=== PATIENT | female | born 1955 | race Caucasian/White ===

== ENCOUNTER 2016-12-06 10:00 | Inpatient (IN) | payer BC ==
--- NOTE | 2016-11-30 14:26 | HP ---
HISTORY AND PHYSICAL: DATE OF ADMISSION/SURGERY: 12/06/16 DATE OF OFFICE VISIT: 11/30/16 SURGEON: Latoya Hein MD. PROCEDURE: Left total knee arthroplasty. CHIEF COMPLAINT: Left knee pain. HISTORY OF PRESENT ILLNESS: Ms. Moss is a 61-year-old female with complaints of left knee pain s econdary to advanced osteoarthritis. She has failed conservative management and has elected to proc eed with a left total knee arthroplasty, which is scheduled for 12/06/[address] Hein. PAST MEDICAL HISTORY: Diabetes, hypertension, TIA. PAST SURGICAL HISTORY: Bariatric surgery, cholecystectomy, left ankle ORIF, hysterectomy, right kne e arthroscopy, anterior cervical diskectomy. CURRENT MEDICATIONS: 1. Lisinopril. 2. Humulin. 3. Paroxetine. 4. HCl 40 mg. 5. [place] vitamins. 6. Vitamin B12. 7. Vitamin D3. ALLERGIES: TETRACYCLINE, HYDROCODONE and POLYSPORIN. HYDROCODONE causes nausea. TETRACYCLINE cause s a rash. FAMILY HISTORY: Heart disease and colon cancer. SOCIAL HISTORY: She is a 61-year-old female. She lives with her mother. She does not smoke or use drugs. She uses an occasional alcohol. She is retired. REVIEW OF SYSTEMS: A complete 14-point review of systems was reviewed with the patient and is posit nadja for diabetes, history of a TIA, and anesthesia causing nausea. She denies history of DVT, bleed ing disorder, hepatitis C, HIV, and MRSA. PHYSICAL EXAMINATION GENERAL: She is well developed, well nourished, in no acute distress. VITAL SIGNS: She stands 5 feet 4 inches tall, weighs 200 pounds. Her blood pressure is 166/80 with a heart rate of 61. HEENT: Normocephalic, atraumatic. NECK: Supple. No palpable lymph nodes. Trachea is midline. PULMONARY: Lungs are clear to auscultation bilaterally. CARDIO: Regular rate and rhythm. ABDOMEN: Soft, nontender, nondistended. NEUROLOGICAL: She is alert and oriented x3. Cranial nerves II through XII are intact. MUSCULOSKELETAL: Left lower extremity skin is intact. She has moderate joint effusion in the left knee, tenderness over the medial and lateral joint line. She walks with a slightly antalgic-type ga it, favoring her left leg. Her lower extremity muscle group strengths are intact at 5/5. She has 2 + dorsalis pedis pulses and intact sensation. ASSESSMENT AND PLAN: Ms. Moss is a 61-year-old female with complaints of left knee pain seconda ry to advanced osteoarthritis. She has failed conservative management and has elected to proceed wi th a left total knee arthroplasty, which is scheduled for 12/06/[address] Hein discus sed the risks and benefits of the surgery at today's visit and all of her questions were answered. Coumadin, Percocet, and Colace were sent to her pharmacy today for postoperative pain control and DV T prophylaxis. She will see Dr. Hein back 14 days after the surgery. JAZIEL STREETER [id number]/[facility] #: [id number]
[~2016-12-06 10:00] MED LIST: Buffered Lidocaine 1% SYR 3ML* 3 ML/SYR SYRINGE INTRADERM ONE; Dexamethasone IV* 4 MG/ML 1 ML (4 MG) IV SLOW PU ONE; Famotidine IV* 10 MG/ML 2 ML (20 mg) IV ONE
[2016-12-06] MEDS ORDERED: Dexamethasone IV* 4 MG/ML 1 ML (4 MG) ONE (11:24)
[2016-12-06] MEDS ORDERED: ceFAZolin 2 GM PREMIX(*) 2 GM/50 ML BAG IVPB ONE (11:24)
[2016-12-06] MEDS ORDERED: Famotidine IV* 10 MG/ML 2 ML (20 mg) ONE (11:24)
[2016-12-06] MEDS ORDERED: Midazolam* 1 MG/ML 5 ML VIAL (5 MG) ONE ×2 (12:42→14:13)
[2016-12-06] MEDS ORDERED: KETAMINE HCL* 50 MG/ML 10 ML VIAL ONE (12:42)
[2016-12-06] MEDS ORDERED: Propofol* 10 MG/ML 20 ML BTL IV PUSH ONE (12:43)
[2016-12-06] MEDS ORDERED: Bupivacaine 0.5% SDV PF* 30 ML VIAL ONE (12:43)
[2016-12-06] MEDS ORDERED: Ondansetron INJ* 2 MG/ML VIAL ONE (12:43)
[2016-12-06] MEDS ORDERED: Morphine PF AMP (0.5MG/ML)* 5 MG/10 ML AMP ONE (13:38)
[2016-12-06] MEDS ORDERED: Ondansetron INJ* 2 MG/ML VIAL IV PRN (14:50)
[2016-12-06] MEDS ORDERED: oxyCODONE/Acetamin 5/325 MG* TAB PO PRN ×2 (14:50)
[2016-12-06] MEDS ORDERED: DiMENhydriNATE IV* 50 MG/ML VIAL IV PUSH PRN (14:50)
[2016-12-06] MEDS ORDERED: Nalbuphine* 20 MG/ML 1 ML VIAL IV PRN ×2 (14:50)
[2016-12-06] MEDS ORDERED: Lactated Ringers 500 ml BAG* 500 ML IV PRN (14:50)
[2016-12-06] MEDS ORDERED: Naloxone* 0.4 MG/ML 1 ML VIAL IV PRN (14:50)
[2016-12-06] MEDS ORDERED: fentaNYL* 50 MCG/ML 2 ML VIAL (100 MCG VIAL) IV PRN (14:50)
[2016-12-06] MEDS ORDERED: Ropivacaine* 300 MG in NS 0.9% 250 ML* 240 ML EPIDURAL SCH (15:00)
[2016-12-06] MEDS ORDERED: Scopolamine 1.5 mg* PATCH TRANSDERM SCH (15:00)
[2016-12-06] MEDS ORDERED: Bisacodyl SUPP* 10 MG SUPP PR PRN (16:10)
[2016-12-06] MEDS ORDERED: Polyethylene Glycol 3350* 17 GM PACKET PO PRN (16:17)
[2016-12-06] MEDS ORDERED: ALBUTEROL SULFATE INH PRN (16:22)
[2016-12-06] MEDS ORDERED: [UNRECOGNIZED DRUG - OTHER] INH PRN (16:22)
[2016-12-06] MEDS ORDERED: FLUTICASONE FUROATE VILANTEROL INH PRN (16:22)
[2016-12-06] MEDS ORDERED: Zolpidem TAB* 10 MG PO PRN (16:25)
[2016-12-06] MEDS ORDERED: Warfarin TAB(*) 6 MG PO ONE (17:00)
[2016-12-06] MEDS ORDERED: Nalbuphine* 20 MG/ML 1 ML VIAL ONE (17:41)
[2016-12-06] MEDS ORDERED: Dextrose 50% Syringe 50 ML* 25 GM/50 ML SYRINGE IV PUSH PRN (17:52)
[2016-12-06] MEDS ORDERED: diPHENhydraMINE IV* 50 MG/ML 1 ml VIAL (BENADRYL) ONE (18:00)
[2016-12-06] MEDS ORDERED: INSULIN NPH SUBCUT SCH (18:00)
[2016-12-06] MEDS ORDERED: [UNRECOGNIZED DRUG - OTHER] SUBCUT SCH (18:00)
[2016-12-06] MEDS: diPHENhydraMINE IV* 50 MG/ML 1 ml VIAL (BENADRYL) IV PRN (18:01)
--- NOTE | 2016-12-06 18:36 | RAD ---
Indication: Post op LEFT total knee replacement. Comparison: November 05, 2016 Technique: Portable AP and cross table lateral views LEFT knee. Report: Status post total knee replacement. Anterior surgical drain in place. Post-op fluid and gas is seen in the joint space and anterior subcutaneous tissues. Alignment is anatomic. No periprosthetic fracture evident. IMPRESSION: Unremarkable immediate postop appearance following LEFT total knee replacement.
[2016-12-06] MEDS: Docusate CAP* 100 MG PO SCH (21:19)
--- NOTE | 2016-12-06 21:45 | CONS ---
CONSULTATION REPORT: DATE OF CONSULT: 12/06/16 PRIMARY CARE PROVIDER: Dr. Abdoul Lynn. ATTENDING PHYSICIAN: Dr. Abiel Peter (dictated by Nisa Mcdermott NP). PHYSICIAN REQUESTING CONSULT: Dr. Latoya Hein. REASON FOR CONSULT: Co-medical management in a patient with history of diabetes mellitus and hypertension. HISTORY OF PRESENT ILLNESS: Ms. Moss is a 61-year-old female with past medical history significant for diabetes mellitus, hypertension, TIA, hyperlipidemia, migraines, small patent foramen ovale, and osteoarthritis, who presented to the hospital for an elective left total knee arthroplasty with Dr. Latoya Hein today. Postoperatively, the patient is doing well. Her pain is controlled. She is reporting some itching from her Duramorph spinal. The patient states that leading up to her surgery, she has been in a good state of health with the exception of left knee discomfort. She denies any recent fever , chills, chest pain, shortness of breath, or edema. The hospitalists were asked to assist with the management of this patient during her postoperative period. PAST MEDICAL HISTORY: 1. Diabetes mellitus. 2. Hypertension. 3. Transient ischemic attack. 4. Migraines. 5. Asthma. 6. Panic disorder. 7. Small patent foramen ovale. 8. Osteoarthritis. PAST SURGICAL HISTORY: 1. Status post gastric bypass surgery in March 2016. 2. Cholecystectomy. 3. Status post left ankle ORIF. 4. Status post hysterectomy in 2005. 5. Status post right knee arthroscopy. 6. Status post anterior cervical diskectomy. HOME MEDICATIONS: Include: 1. Lisinopril/hydrochlorothiazide 20/12.5 mg daily. 2. NPH 20 to 30 units sliding scale subcutaneous every evening. 3. Paroxetine 40 mg oral every morning. 4. [place] multivitamins 2 tablets oral daily. 5. Vitamin B12 500 mcg oral daily. 6. Vitamin D3 2000 units by mouth oral daily. ALLERGIES: TETRACYCLINE causes a rash, HYDROCODONE causes nausea, and POLYSPORIN. FAMILY HISTORY: The patient's maternal grandmother had a history of myocardial infarction, the patient's mother has a history of diabetes mellitus. The patient's brother has a history of colon cancer, a paternal aunt with breast cancer, paternal grandmother with ovarian cancer, and a paternal grandfather with bone cancer. SOCIAL HISTORY: The patient denies tobacco, alcohol, or recreational drug use. She is retired and lives with her mother. The patient's daughter, Robina Culp, would be her surrogate decision maker in the event that she is unable to make decisions for herself. REVIEW OF SYSTEMS: I performed a 14-point review of systems. All the pertinent positive and negatives are mentioned in the history of present illness. The remaining review of systems is negative. PHYSICAL EXAM: Vital Signs: Temperature 97.2, heart rate 68, respiratory rate 15, O2 sat 92% on room air, blood pressure 122/84. Appearance: The patient was alert, pleasant, to be in no acute distress. HEENT: Normocephalic, atraumatic. Pupils are equal and round. Extraocular movements are intact. Neck: Supple. Cardiovascular: Regular rate and rhythm. S1 and S2 crisp. There are no murmurs, rubs, or gallops heard. Extremities: There is no lower extremity edema. DP and PT pulses are 2+ and symmetric. Respiratory: There is no accessory muscle use and the lungs are clear to auscultation bilateral. Abdomen: Soft, nontender, nondistended. There are bowel sounds present x4. Musculoskeletal: There is no clubbing or cyanosis noted. The patient exhibits equal strength in all extremities. Skin: There is dressing on the patient's left knee that is clean, dry, and intact. Neurological: Cranial nerves II through XII are grossly intact. Psychological: The patient is calm and cooperative. DIAGNOSTIC STUDIES/LAB DATA: Preoperative laboratory data from 11/30/16. Sodium 137, potassium 3.7, chloride 102, CO2 28, BUN 21, creatinine 0.76, glucose 204. White blood cell count 7.9, hemoglobin 12.2, hematocrit 37, and platelet count 244. IMPRESSION: Ms. Moss is a 61-year-old female with past medical history significant for diabetes mellitus, hypertension, history of transient ischemic attack, hyperlipidemia, who underwent an elective left total knee arthroplasty today with Dr. Hein. Hospitalists were asked to assist with co-management of this patient during her hospitalization. PLAN: 1. Status post left total knee arthroplasty. Postoperative day. Management per Orthopedic Surgery. The patient had a Duramorph spinal and will be started on pain regimen in the morning. The patient's hemoglobin and hematocrit will be trended. She will have physical therapy and occupational therapy. Her urinary catheter will be removed on postop day 1. 2. Diabetes mellitus. We will hold the patient's NPH while she is in the hospital. She will have fingersticks a.c. and h.s. She will be on a lispro sliding scale. The patient's hemoglobin A1c was 7.5 on 11/30/16. 3. Hypertension. For now, in the postoperative period, we are going to hold the patient's lisinopril and hydrochlorothiazide. I will consider restarting these in the morning depending on what her blood pressures are. Her blood pressure goal should be less than 140/90. The patient should be seen and followed up by her primary care provider in approximately 6 weeks. 4. Panic disorder. The patient will be continued on her home paroxetine. 5. Fluids, electrolytes, and nutrition. The patient will be on a consistent carbohydrate diet. 6. DVT prophylaxis. The patient will be on Lovenox bridge to warfarin per Orthopedic Surgery. 7. Code status. Full code. 8. Disposition. Inpatient. Disposition per Orthopedic Surgery. TIME SPENT: The time for this consultation was 60 minutes, 30 minutes was spent [id number] with the patient discussing medications, past medical history , and the events leading up to her arrival today. The patient has been reviewed with the attending, Dr. Peter, who agrees with the plan of care. NISA MCDERMOTT NP CC: Dr. Hein; Dr. Abdoul Lynn* [id number]/[facility] #: [id number] MTDD
[2016-12-06] MEDS: Magnesium Hydroxide LIQ* 30 ML UDC PO SCH (22:19)
[2016-12-06] MEDS: ceFAZolin 1 GM in Dextrose (*) 1 GM/50 ML BAG IVPB SCH (22:24)
[2016-12-06] MEDS ORDERED: HYDROmorphone PCA* 20 MG/20 ML PCA.SYRING PCA SCH (23:45)
[2016-12-07] MEDS ORDERED: Insulin LISPRO* 1 UNITS UNIT SUBCUT ONE ×2 (01:00→23:00)
[2016-12-07] MEDS ORDERED: diPHENhydraMINE PO* 25 MG PO PRN (06:00)
[2016-12-07] MEDS ORDERED: Ondansetron TAB* 4 MG PO PRN (06:00)
[2016-12-07] MEDS ORDERED: Ondansetron INJ* 2 MG/ML VIAL IV PRN (06:00)
[2016-12-07] MEDS: ceFAZolin 1 GM in Dextrose (*) 1 GM/50 ML BAG IVPB SCH ×2 (06:21→14:28)
[2016-12-07 06:32] LABS: Hematocrit 30 % (35-47)
[2016-12-07 06:57] LABS: BUN/Creatinine Ratio 18.7 (8-20); Calcium 8.4 mg/dL (8.6-10.3); EGFR African American 45.7 (>60); EGFR Non-African American 35.5 (>60); Potassium 4.3 mmol/L (3.5-5.0)
[2016-12-07] MEDS: Magnesium Hydroxide LIQ* 30 ML UDC PO SCH ×2 (07:54→20:12)
[2016-12-07] MEDS: Cyanocobalamin TAB* 500 MCG PO SCH (07:54)
[2016-12-07] MEDS: PARoxetine HCL TAB* 40 MG PO SCH (07:54)
[2016-12-07] MEDS: Docusate CAP* 100 MG PO SCH ×2 (07:54→20:12)
[2016-12-07] MEDS: diPHENhydraMINE IV* 50 MG/ML 1 ml VIAL (BENADRYL) IV PRN (07:54)
[2016-12-07] MEDS: oxyCODONE TAB* 5 MG TAB PO PRN ×2 (07:57→11:35)
[2016-12-07] MEDS: Acetaminophen TAB* 325 MG PO PRN ×3 (07:57→23:19)
--- NOTE | 2016-12-07 08:36 | PN ---
Progress Note - Progress Note SOAP: Subjective: 61 y/o female s/p L TKA 12/06/[address] Hein. Patient feeling well, eager for D/C. + itching overnight. VSS afebrile. Objective: General- Well appearing, NAD, sitting in bed comfortably MSK- Surgical dressing intact, no drainage noted. Moderate swelling LLE, non- pitting, PT 2+ b/l, + DF/PF. Laboratory Results - last 24 hr 12/06/16 12/06/16 12/06/16 11:36 16:55 22:29 Hgb Hct INR (Anticoag Therapy) Sodium Potassium Chloride Carbon Dioxide Anion Gap BUN Creatinine Est GFR ( Amer) Est GFR (Non-Af Amer) BUN/Creatinine Ratio Glucose POC Glucose (mg/dL) 158 H 226 H 346 H Calcium 12/07/16 12/07/16 12/07/16 06:02 06:02 06:02 Hgb 10.0 L Hct 30 L INR (Anticoag Therapy) 1.03 Sodium 134 Potassium 4.3 Chloride 102 Carbon Dioxide 27 Anion Gap 5 BUN 28 H Creatinine 1.50 H Est GFR ( Amer) 45.7 Est GFR (Non-Af Amer) 35.5 BUN/Creatinine Ratio 18.7 Glucose 192 H POC Glucose (mg/dL) Calcium 8.4 L 12/07/16 08:05 Hgb Hct INR (Anticoag Therapy) Sodium Potassium Chloride Carbon Dioxide Anion Gap BUN Creatinine Est GFR ( Amer) Est GFR (Non-Af Amer) BUN/Creatinine Ratio Glucose POC Glucose (mg/dL) 264 H Calcium Vital Signs Temp 98.2 F 12/07/16 07:38 Pulse 82 12/07/16 07:38 Resp 16 12/07/16 07:57 BP 96/49 12/07/16 07:38 Pulse Ox 100 12/07/16 07:38 Intake & Output 12/06/16 12/07/16 12/07/16 18:59 06:59 18:59 Intake Total 1850 2587 Output Total 1000 200 Balance 850 2387 Weight 202 lb Intake: IV Fluids 1850 1257 LR 1257 NS 50ML, Cefazolin 2G 50 lr 1800 IVPB 30 LR 30 Oral 1300 Output: Law 750 200 Estimated Blood Loss 250 Other: # Bowel Movements 0 Assessment: 61 y/o female s/p L TKA 12/06/[address] Hein Plan: - Lovenox and coumadin for DVT propylaxis, 8mg tonight - PT OT - Continue current pain regimen- monitor pruritis Active Medications Generic Name Dose Route Start Last Admin Trade Name Freq PRN Reason Stop Dose Admin Acetaminophen 650 mg 12/07/16 06:00 12/07/16 07:57 Tylenol Tab* PO 650 mg Q4H PRN Administration mild pain or fever Bisacodyl 10 mg 12/06/16 16:10 Dulcolax Supp* AR DAILY PRN constipation Cyanocobalamin 500 mcg 12/07/16 09:00 12/07/16 07:54 Vitamin B12 Tab* PO 500 mcg DAILY TANYA Administration Dextrose 12.5 gm 12/06/16 17:52 D50w Syringe 50 Ml* IV PUSH .FOR FS < 60 - SS PRN FS < 60 Dimenhydrinate 25 mg 12/06/16 14:50 Dramamine Iv* IV PUSH ONCE PRN NAUSEA/VOMITING Diphenhydramine HCl 12.5 mg 12/06/16 16:10 12/07/16 07:54 Benadryl Iv* IV 12.5 mg Q6H PRN Administration PRURITIS Diphenhydramine HCl 25 mg 12/07/16 06:00 Benadryl Po* PO Q6H PRN INSOMNIA Docusate Sodium 100 mg 12/06/16 21:00 12/07/16 07:54 Colace Cap* PO 100 mg BID TANYA Administration Enoxaparin Sodium 30 mg 12/07/16 17:00 Lovenox(*) SUBCUT Q24H TANYA Ropivacaine 300 mg/ Sodium 300 mls @ 0 mls/hr 12/06/16 15:00 12/06/16 19:27 Chloride EPIDURAL Not Given Q24H TANYA Protocol Per Protocol Lactated Ringer's 500 mls @ 2,000 mls/hr 12/06/16 14:50 Lactated Ringers 500 Ml Bag* IV ONCE PRN FOR SBP < 90 Cefazolin Sodium/Dextrose 1 gm in 50 mls @ 200 mls/hr 12/06/16 22:00 06:21 Kefzol 1 Gm In Dextrose Duplex (*) IVPB 12/07/16 14:14 200 mls/hr Q8H TANYA Administration Lactated Ringer's 1,000 mls @ 125 mls/hr 12/06/16 17:00 12/06/16 19:37 Lactated Ringers 1000 Ml Bag* IV 100 mls/hr PER RATE TANYA Administration Hydromorphone HCl 20 mg in 20 mls @ 0 mls/hr 12/06/16 23:45 Dilaudid Dry Starch Operator* GLAZE MIXER 12/07/16 23:44 .change Q24H [facility] Protocol Per Protocol Insulin Human Lispro 0 - 10 units 12/07/16 07:30 Humalog* SUBCUT AC [facility] Protocol Lactulose 30 ml 12/06/16 16:10 Lactulose* PO Q6H PRN constipation Magnesium Hydroxide 30 ml 12/06/16 21:00 12/07/16 07:54 Milk Of Magnesia Liq* PO 30 ml BID [facility] Administration Morphine Sulfate 5 mg 12/07/16 06:00 Morphine Inj (Syringe)* IV Q2H PRN SEVERE PAIN Ondansetron HCl 4 mg 12/07/16 06:00 Zofran Inj* IV Q6H PRN nausea Ondansetron HCl 4 mg 12/07/16 06:00 Zofran Tab* PO Q6H PRN NAUSEA Oxycodone HCl 10 mg 12/07/16 06:00 12/07/16 07:57 Roxycodone Tab* PO 10 mg Q4H PRN Administration breaktrough pain Oxycodone/Acetaminophen 1 tab 12/07/16 06:00 Percocet 5/325 Tab* PO Q3H PRN PAIN - MODERATE Paroxetine HCl 40 mg 12/07/16 09:00 12/07/16 07:54 Paxil Tab* PO 40 mg QAM TANYA Administration Pharmacy Profile Note 1 note 12/09/16 14:54 Scopolomine Patch Remove* PATCH OFF 12/09/16 14:55 .AFTER 72 HOURS ONE Pharmacy Profile Note 1 note 12/07/16 17:00 Coumadin Daily Reminder* FOLLOW UP 1700 [facility] Polyethylene Glycol/Electrolytes 17 gm 12/06/16 16:17 Miralax* PO DAILY PRN Constipation Scopolamine 1 patch 12/06/16 15:00 12/06/16 19:28 Transderm-Scop 1.5 Mg Patch* TRANSDERM Not Given Q72H [facility] Warfarin Sodium 8 mg 12/07/16 17:00 Coumadin Tab(*) PO 12/07/16 17:01 ONCE@1700 ONE Protocol Zolpidem Tartrate 10 mg 12/06/16 16:25 Ambien Tab* PO BEDTIME PRN INSOMNIA
[2016-12-07] MEDS: Insulin LISPRO* 1 UNITS UNIT SUBCUT SCH ×3 (08:58→17:14)
[2016-12-07] MEDS ORDERED: Lisinopril TAB* 10 MG PO SCH (09:00)
--- NOTE | 2016-12-07 10:43 | PN ---
Subjective Date of Service: 12/07/16 Interval History: Patient seen and examined at bedside. Pt states that she is feeling well today with the exception of itching. Denies fever, chills, shortness of breath, chest discomfort, N/V/D. Pt has been up with physical therapy. Family History: Unchanged from Admission Social History: Unchanged from Admission Past Medical History: Unchanged from Admission Objective Active Medications: Acetaminophen (Tylenol Tab*) 650 mg PO Q4H PRN Reason: mild pain or fever Bisacodyl (Dulcolax Supp*) 10 mg HI DAILY PRN Reason: constipation Cyanocobalamin (Vitamin B12 Tab*) 500 mcg PO DAILY TANYA Dextrose (D50w Syringe 50 Ml*) 12.5 gm IV PUSH .FOR FS < 60 - SS PRN Reason: FS < 60 Dimenhydrinate (Dramamine Iv*) 25 mg IV PUSH ONCE PRN Reason: NAUSEA/VOMITING Diphenhydramine HCl (Benadryl Iv*) 12.5 mg IV Q6H PRN Reason: PRURITIS Diphenhydramine HCl (Benadryl Po*) 25 mg PO Q6H PRN Reason: INSOMNIA Docusate Sodium (Colace Cap*) 100 mg PO BID TANYA Enoxaparin Sodium (Lovenox(*)) 30 mg SUBCUT Q24H TANYA Ropivacaine 300 mg/ Sodium (Chloride) 300 mls @ 0 mls/hr EPIDURAL Q24H TANYA; Per Protocol Reason: Protocol Lactated Ringer's (Lactated Ringers 500 Ml Bag*) 500 mls @ 2,000 mls/hr IV ONCE PRN Reason: FOR SBP < 90 Cefazolin Sodium/Dextrose (Kefzol 1 Gm In Dextrose Duplex (*)) 1 gm in 50 mls @ 200 mls/hr IVPB Q8H TANYA Stop: 12/07/16 14:14 Lactated Ringer's (Lactated Ringers 1000 Ml Bag*) 1,000 mls @ 125 mls/hr IV PER RATE TANYA Hydromorphone HCl (Dilaudid Beverage Inspection Machine Tender*) 20 mg in 20 mls @ 0 mls/hr [employer] SEALER .change Q24H TANYA; Per Protocol Stop: 12/07/16 23:44 Insulin Human Lispro (Humalog*) 0 - 10 units SUBCUT AC TANYA Reason: Protocol Lactulose (Lactulose*) 30 ml PO Q6H PRN Reason: constipation Magnesium Hydroxide (Milk Of Magnesia Liq*) 30 ml PO BID [facility] Morphine Sulfate (Morphine Inj (Syringe)*) 5 mg IV Q2H PRN Reason: SEVERE PAIN Ondansetron HCl (Zofran Inj*) 4 mg IV Q6H PRN Reason: nausea Ondansetron HCl (Zofran Tab*) 4 mg PO Q6H PRN Reason: NAUSEA Oxycodone HCl (Roxycodone Tab*) 10 mg PO Q4H PRN Reason: breaktrough pain Oxycodone/Acetaminophen (Percocet 5/325 Tab*) 1 tab PO Q3H PRN Reason: PAIN - MODERATE Paroxetine HCl (Paxil Tab*) 40 mg PO QAM [facility] Pharmacy Profile Note (Scopolomine Patch Remove*) 1 note PATCH OFF .AFTER 72 HOURS ONE Stop: 12/09/16 14:55 Pharmacy Profile Note (Coumadin Daily Reminder*) 1 note FOLLOW UP 1700 [facility] Polyethylene Glycol/Electrolytes (Miralax*) 17 gm PO DAILY PRN Reason: Constipation Scopolamine (Transderm-Scop 1.5 Mg Patch*) 1 patch TRANSDERM Q72H [facility] Warfarin Sodium (Coumadin Tab(*)) 8 mg PO ONCE@1700 ONE Stop: 12/07/16 17:01 Zolpidem Tartrate (Ambien Tab*) 10 mg PO BEDTIME PRN Reason: INSOMNIA Vital Signs 12/06/16 12/06/16 12/06/16 11:31 16:30 16:35 Temperature 98.6 F 96.6 F Pulse Rate 61 61 59 Respiratory 16 14 14 Rate Blood Pressure 146/78 114/71 126/72 (mmHg) O2 Sat by Pulse 98 98 93 Oximetry 12/06/16 12/06/16 12/06/16 16:40 16:45 16:50 Temperature Pulse Rate 62 61 62 Respiratory 14 15 16 Rate Blood Pressure 120/74 73/62 91/73 (mmHg) O2 Sat by Pulse 93 93 93 Oximetry 12/06/16 12/06/16 12/06/16 16:55 17:00 17:05 Temperature Pulse Rate 63 63 69 Respiratory 17 15 15 Rate Blood Pressure 104/76 143/83 120/80 (mmHg) O2 Sat by Pulse 93 95 93 Oximetry 12/06/16 12/06/16 12/06/16 17:15 17:30 17:45 Temperature 97.2 F Pulse Rate 63 68 68 Respiratory 14 16 15 Rate Blood Pressure 126/83 142/80 122/84 (mmHg) O2 Sat by Pulse 94 94 92 Oximetry 12/06/16 12/06/16 12/06/16 18:19 18:30 19:00 Temperature 97.5 F Pulse Rate 65 Respiratory 16 16 16 Rate Blood Pressure 134/67 (mmHg) O2 Sat by Pulse 92 Oximetry 12/06/16 12/06/16 12/06/16 19:31 20:30 21:00 Temperature 97.0 F 97.8 F Pulse Rate 82 82 Respiratory 17 15 15 Rate Blood Pressure 127/60 130/60 (mmHg) O2 Sat by Pulse 85 96 Oximetry 12/06/16 12/06/16 12/06/16 21:18 22:00 22:31 Temperature 96.9 F Pulse Rate 85 Respiratory 15 16 17 Rate Blood Pressure 126/58 (mmHg) O2 Sat by Pulse 89 Oximetry 12/06/16 12/06/16 12/06/16 22:36 23:00 23:18 Temperature Pulse Rate Respiratory 17 15 Rate Blood Pressure (mmHg) O2 Sat by Pulse 94 99 Oximetry 12/06/16 12/07/16 12/07/16 23:48 00:00 00:18 Temperature Pulse Rate Respiratory 13 16 16 Rate Blood Pressure (mmHg) O2 Sat by Pulse 97 99 Oximetry 12/07/16 12/07/16 12/07/16 00:25 01:00 01:05 Temperature 97.8 F Pulse Rate 90 84 Respiratory 16 17 17 Rate Blood Pressure 126/58 130/55 (mmHg) O2 Sat by Pulse 100 98 Oximetry 12/07/16 12/07/16 12/07/16 01:18 02:18 03:00 Temperature Pulse Rate Respiratory 17 0 16 Rate Blood Pressure (mmHg) O2 Sat by Pulse 96 99 Oximetry 12/07/16 12/07/16 12/07/16 03:18 03:45 04:18 Temperature 97.7 F Pulse Rate 75 Respiratory 15 16 15 Rate Blood Pressure 98/56 (mmHg) O2 Sat by Pulse 99 96 99 Oximetry 12/07/16 12/07/16 12/07/16 06:18 07:38 07:54 Temperature 98.2 F Pulse Rate 82 Respiratory 12 14 16 Rate Blood Pressure 96/49 (mmHg) O2 Sat by Pulse 99 100 Oximetry 12/07/16 07:57 Temperature Pulse Rate Respiratory 16 Rate Blood Pressure (mmHg) O2 Sat by Pulse Oximetry Oxygen Devices in Use Now: None Appearance: NAD, sitting up in a chair Eyes: No Scleral Icterus, PERRLA Ears/Nose/Mouth/Throat: Mucous Membranes Moist Respiratory: Symmetrical Chest Expansion and Respiratory Effort, Clear to Auscultation Cardiovascular: NL Sounds; No Murmurs; No JVD, RRR Abdominal: NL Sounds; No Tenderness; No Distention Extremities: - - Left LE edema Skin: No Rash or Ulcers Neurological: Alert and Oriented x 3, NL Muscle Strength and Tone Lines/Tubes/Other Access: Clean, Dry and Intact Peripheral IV - site benign Nutrition: Taking PO's Result Diagrams: 12/07/16 06:02 12/07/16 06:02 Assess/Plan/Problems-Billing Assessment: Ms. Moss is a 61 yo female with PMH significant for DM, HTN, hx TIA, HLD and osteoarthritis who presented to the hospital for an elective left total knee arthroplasty with Dr. Hein on 12/06/16. Hospitalists were asked to assist with medical co-management of this patient during her hospitalization. - Patient Problems (1) Status post total left knee replacement Code(s): Z96.652 - PRESENCE OF LEFT ARTIFICIAL KNEE JOINT SNOMED Code(s): 6583029140893 Comment: - Management per Ortho - Trend [facility] - Continue PT/OT, pain management, and bowel regime (2) TOO (acute kidney injury) Code(s): N17.9 - ACUTE KIDNEY FAILURE, UNSPECIFIED SNOMED Code(s): 23889480 Comment: - Creatinine elevated today - Will give 1 L of fluids and recheck BMP in the AM (3) Diabetes Code(s): E11.9 - TYPE 2 DIABETES MELLITUS WITHOUT COMPLICATIONS SNOMED Code(s) : 91111051 Comment: - HgA1C 7.5 on 11/30/16 - Hold NPH while in the hospital and resume at discharge - Continue glucose checks and Lispro SS (4) HTN (hypertension) Code(s): I10 - ESSENTIAL (PRIMARY) HYPERTENSION SNOMED Code(s): 60745203 Comment: - Hypotensive - Continue to hold lisinopril and HCTZ, resume when BP allows (5) Panic disorder Code(s): F41.0 - PANIC DISORDER WITHOUT AGORAPHOBIA SNOMED Code(s): 102886742 Comment: - Continue paroxetine (6) DVT prophylaxis Code(s): NPN6583 - SNOMED Code(s): 636592022 Comment: - Lovenox bridge to Warfarin per Ortho (7) Full code status Code(s): Z78.9 - OTHER SPECIFIED HEALTH STATUS SNOMED Code(s): 860856225 Status and Disposition: Inpatient. Disposition per Orthopedics.
[2016-12-07] MEDS ORDERED: DiMENhydriNATE IV* 50 MG/ML VIAL IV PUSH PRN (11:29)
[2016-12-07] MEDS ORDERED: DiMENhydriNATE IV* 50 MG/ML VIAL ONE (11:31)
[2016-12-07] MEDS: Morphine INJ* 10 MG/ML 1 ML SYRINGE IV PRN ×2 (12:51→19:20)
--- NOTE | 2016-12-07 14:44 | OP ---
OPERATIVE REPORT: DATE OF OPERATION: 12/06/16 DATE OF : 59 SURGEON: Latoya Hein MD. TESTING MACHINE OPERATOR: JAZIEL Pretty This volunteer services assistant was utilized throughout the procedure all steps of the procedure and was essential to performing the surgery. ANESTHESIOLOGIST: Dr. Enrique. ANESTHESIA: Spinal. PRE-OP DIAGNOSIS: Severe left knee degenerative osteoarthritis. POST-OP DIAGNOSIS: Severe left knee degenerative osteoarthritis. PROCEDURE PERFORMED: Left total knee arthroplasty. HARDWARE USED: [employer] uncemented total knee arthroplasty hardware. For the femur, a siz e left 4 narrow posterior established LEGION Oxinium femoral component. This was narrow. For the t ibia, size 3, left tibial baseplate; for the patella 32 mm 3-peg all poly patella; and for the inser t, an 11 mm size 3-4 posterior stabilized articular insert. Two packages of Simplex bone cement were used. TOURNIQUET TIME: 60 minutes. COMPLICATIONS: None. ESTIMATED BLOOD LOSS: 250 cc. SPECIMEN: Bone and cartilage from the left knee joint, sent to pathology. BRIEF HISTORY/INDICATION: Ms. Moss is a 61-year-old female with years of increasingly severe le ft knee pain. She failed conservative treatment with antiinflammatories, pain medications, intraart icular injections and physical therapy. She elected to undergo left total knee arthroplasty due to continued pain and decreased quality of life. Radiographs showed [id number] arthritis. Informed consent was obtained from the patient. She understood the risks of the procedure included, but were not limited to, bleeding, infection, damage to nearby structures, continued pain, need for further surgery, intraoperative fracture, nerve palsy, hardware failure or loosening, knee stiffnes s, loss of motion, stroke, heart attack, blood clot, and . She wished to proceed. INTRAOPERATIVE FINDINGS: Intraoperatively, the patient was noted to have severe arthritis with comp lete loss of cartilage in the medial and patellofemoral compartments. DESCRIPTION OF PROCEDURE: Ms. Moss was identified in the pre-anesthesia unit. Her left lower ext remity was marked as the correct operative side. Informed consent was signed and placed in the [facility]. The patient was taken to the operating room and placed under spinal anesthesia without difficult y. A Law catheter was placed. The tourniquet was placed on the left thigh. Left lower extremity was prepped and draped in the usual sterile fashion. Preoperative time-out was made to correctly i dentify the patient's side and site. Appropriate perioperative antibiotics were given within 1 hour of incision. Tourniquet was inflated and total tourniquet time for this procedure was 60 minutes. A 12 cm midlin e incision was made with a 10 blade and carried down to the extensor mechanism. A new 10 blade was used to make a standard medial parapatellar arthrotomy. The patella was subluxed laterally. Electr ocautery was used to subperiosteally elevate soft tissue off the superomedial tibia to the sagittal plane. Any osteophytes were carefully removed. The knee was flexed up. The anterior horn of the l ateral meniscus and ACL was sharply released. A drill was used to enter the distal femur. Intramed ullary distal femoral cutting guide was placed and pinned into position. The oscillating saw was us ed to make the appropriate distal femoral cut. The external rotation guide was pinned on the distal femur. The distal femur was sized to a size 4. Size 4 cutting jig was pinned on the distal femur. The oscillating saw was used to make the appropriate chamfer cuts. Next the PCL was completely released. The extramedullary proximal tibial cutting guide was pinned o n the proximal tibia. Oscillating saw was used to make the proximal tibial cut perpendicular to the mechanical axis of the tibia. The bone was carefully removed. The knee was brought out into full extension. There was good medial and lateral ligamentous balancing. The spacer blocks fit in full flexion. There was good flexion and extension gap balancing. The knee was flexed up. The lamina [employer] was placed both medially and laterally. Any remaining meniscus was carefully removed using electrocautery. Any remaining osteophytes were removed using a curved osteotome and curette. A size 4 narrow left femoral trial was impacted on to the distal femur and had good fit. The box fo r the posterior stabilized implant was prepared using a reamer and box cut osteotome. Size 3 tibial tray trial with 11 mm insert trial was placed and the knee was taken through a range of motion. The knee had full extension to 125 degrees of flexion with good patellofemoral tracking. The patella was everted. 9 mm of patellar bone and cartilage was carefully removed using an oscilla ting saw. The patella was sized to a size 32. A size 32 guide was used to drill the 3 peg holes. A trial 32 patella was placed and the knee was taken through a range of motion. There was excellent patellofemoral tracking. All trials were carefully removed. The tibia was subluxed anteriorly and sized to a size 3. Proxim al tibia was prepared using a size 3 keel punch. All bony prominences were copiously irrigated and dried. The final implants were cemented into place starting with the tibia followed by the femur an d last the patella. An 11 mm insert trial was placed and the knee was brought out into full extensi on. The tourniquet was turned down at 60 minutes. The knee was copiously irrigated with sterile hugo ine. Once the cement was fully cured, the insert trial was removed. Any excess cement was carefully jeane china from around the capsule and implants. Electrocautery was used to establish meticulous hemostasi s. An 11 mm posterior stabilized insert was chosen as the final implant. This was locked into posi tion on the tibial tray. The stability of the insert was checked and the knee checked and noted to b e stable. The knee was copiously irrigated with sterile saline. The extensor mechanism was closed over a medi Hemovac drain using interrupted #1 Vicryls. The rest of the incision was closed in a layered fas hion using 0 and 2-0 Vicryls. Skin was closed using running 3-0 nylon suture. Sterile Xeroform, 4x 4's, and Webril were used to cover the incision. Sebastián wrap and cold packs were placed over this. The patient's anesthesia was reversed without difficulty. She was taken to the PACU in stable conditio n. Intended weightbearing will be weightbearing as tolerated. Intended DVT prophylaxis will be Cou madin with a Lovenox bridge. [id number]/[facility] #: [id number]
[2016-12-07] MEDS: HYDROmorphone TAB* 2 MG PO PRN ×2 (16:04→20:12)
[2016-12-07] MEDS ORDERED: Enoxaparin(*) 30 MG/0.3 ML SYR SUBCUT SCH (17:00)
[2016-12-07] MEDS ORDERED: Warfarin TAB(*) 4 MG PO ONE (17:00)
[2016-12-08] MEDS: HYDROmorphone TAB* 2 MG PO PRN ×2 (00:09→04:33)
[2016-12-08 05:31] LABS: Hematocrit 29 % (35-47); Hemoglobin 9.6 g/dl (12.0-16.0)
[2016-12-08 06:02] LABS: BUN/Creatinine Ratio 24.5 (8-20); Calcium 8.3 mg/dL (8.6-10.3); EGFR Non-African American 34.2 (>60); Potassium 4.4 mmol/L (3.5-5.0)
[2016-12-08] MEDS ORDERED: oxyCODONE/Acetamin 5/325 MG* TAB PO PRN ×2 (07:34)
--- NOTE | 2016-12-08 07:41 | PN ---
Progress Note - Progress Note SOAP: Subjective: pt resting comfortably, very drowsy, A &O X3 Objective: Vital Signs Temp Pulse Resp BP Pulse Ox 98.1 F 88 18 142/67 94 12/08/16 04:29 12/08/16 04:29 12/08/16 06:33 12/08/16 04:29 12/08/16 04:29 Laboratory Last Values Hgb 9.6 g/dl (12.0-16.0) L 12/08/16 05:23 Hct 29 % (35-47) L 12/08/16 05:23 INR (Anticoag Therapy) 2.40 (0.89-1.11) H 12/08/16 05:23 Sodium 132 mmol/L (133-145) L 12/08/16 05:23 Potassium 4.4 mmol/L (3.5-5.0) 12/08/16 05:23 Chloride 99 mmol/L (101-111) L 12/08/16 05:23 Carbon Dioxide 28 mmol/L (22-32) 12/08/16 05:23 Anion Gap 5 mmol/L (2-11) 12/08/16 05:23 BUN 38 mg/dL (6-24) H 12/08/16 05:23 Creatinine 1.55 mg/dL (0.51-0.95) H 12/08/16 05:23 Est GFR ( Amer) 44.0 (>60) 12/08/16 05:23 Est GFR (Non-Af Amer) 34.2 (>60) 12/08/16 05:23 BUN/Creatinine Ratio 24.5 (8-20) H 12/08/16 05:23 Glucose 297 mg/dL (70-100) H 12/08/16 05:23 POC Glucose (mg/dL) 309 mg/dL (74-106) H 12/08/16 07:14 Calcium 8.3 mg/dL (8.6-10.3) L 12/08/16 05:23 incision: c/d; dressing changed PE: NVI Assessment: s/p left TKA; POD#2 Plan: 1) continue PT-WBAT 2) continue Lovenox/ Coumadin for DVT prophylaxis 3) change pain meds from Dilaudid to Percocet to improve drowsiness/mentation 4) INR elevated, will hold coumadin tonight
[2016-12-08] MEDS: Insulin LISPRO* 1 UNITS UNIT SUBCUT SCH ×3 (08:50→17:25)
[2016-12-08] MEDS: PARoxetine HCL TAB* 40 MG PO SCH (08:51)
[2016-12-08] MEDS: Magnesium Hydroxide LIQ* 30 ML UDC PO SCH ×2 (08:51→20:01)
[2016-12-08] MEDS: oxyCODONE/Acetamin 5/325 MG* TAB PO PRN ×3 (08:51→22:05)
[2016-12-08] MEDS: Cyanocobalamin TAB* 500 MCG PO SCH (08:51)
[2016-12-08] MEDS: Docusate CAP* 100 MG PO SCH ×2 (08:51→20:01)
--- NOTE | 2016-12-08 10:41 | PN ---
Subjective Date of Service: 12/08/16 Interval History: Pain control fair to adequate. Patient states she is now eating about as much as she does at home. No new c/o. Family History: Unchanged from Admission Social History: Unchanged from Admission Past Medical History: Unchanged from Admission Objective Active Medications: Acetaminophen (Tylenol Tab*) 650 mg PO Q4H PRN PRN Reason: mild pain or fever Last Admin: 12/07/16 23:19 Dose: 650 mg Bisacodyl (Dulcolax Supp*) 10 mg [place] DAILY PRN PRN Reason: constipation Cyanocobalamin (Vitamin B12 Tab*) 500 mcg PO DAILY [facility] Last Admin: 12/08/16 08:51 Dose: 500 mcg Dextrose (D50w Syringe 50 Ml*) 12.5 gm IV PUSH .FOR FS < 60 - SS PRN PRN Reason: FS < 60 Dimenhydrinate (Dramamine Iv*) 12.5 mg IV PUSH Q6H PRN PRN Reason: N/V, itching Last Admin: 12/07/16 11:37 Dose: 12.5 mg Diphenhydramine HCl (Benadryl Iv*) 12.5 mg IV Q6H PRN PRN Reason: PRURITIS Last Admin: 12/07/16 07:54 Dose: 12.5 mg Diphenhydramine HCl (Benadryl Po*) 25 mg PO Q6H PRN PRN Reason: INSOMNIA Docusate Sodium (Colace Cap*) 100 mg PO BID [facility] Last Admin: 12/08/16 08:51 Dose: 100 mg Insulin Human Lispro (Humalog*) 0 - 10 units SUBCUT AC [facility] PRN Reason: Protocol Last Admin: 12/08/16 08:50 Dose: 8 units Insulin Human NPH (Insulin Nph(*)) 30 units SUBCUT Q24H TANYA Lactulose (Lactulose*) 30 ml PO Q6H PRN PRN Reason: constipation Lisinopril (Prinivil Tab*) 5 mg PO DAILY [facility] Magnesium Hydroxide (Milk Of Magnesia Liq*) 30 ml PO BID [facility] Last Admin: 12/08/16 08:51 Dose: 30 ml Morphine Sulfate (Morphine Inj (Syringe)*) 5 mg IV Q2H PRN PRN Reason: SEVERE PAIN Last Admin: 12/07/16 19:20 Dose: 5 mg Ondansetron HCl (Zofran Inj*) 4 mg IV Q6H PRN PRN Reason: nausea Ondansetron HCl (Zofran Tab*) 4 mg PO Q6H PRN PRN Reason: NAUSEA Oxycodone/Acetaminophen (Percocet 5/325 Tab*) 1 tab PO Q3H PRN PRN Reason: PAIN - MODERATE Last Admin: 12/08/16 08:51 Dose: 1 tab Oxycodone/Acetaminophen (Percocet 5/325 Tab*) 1 tab PO Q3H PRN PRN Reason: PAIN - MODERATE Oxycodone/Acetaminophen (Percocet 5/325 Tab*) 2 tab PO Q3H PRN PRN Reason: PAIN - MODERATE Paroxetine HCl (Paxil Tab*) [facility] [place] Last Admin: 12/08/16 08:51 Dose: 40 mg Pharmacy Profile Note (Scopolomine Patch Remove*) 1 note PATCH OFF .AFTER 72 HOURS ONE Stop: 12/09/16 14:55 Pharmacy Profile Note (Coumadin Daily Reminder*) 1 note FOLLOW UP 1700 [facility] Last Admin: 12/07/16 17:03 Dose: 1 note Polyethylene Glycol/Electrolytes (Miralax*) 17 gm PO DAILY PRN PRN Reason: Constipation Zolpidem Tartrate (Ambien Tab*) 10 mg PO BEDTIME PRN PRN Reason: INSOMNIA Last Admin: 12/08/16 00:13 Dose: 10 mg Vital Signs 12/07/16 12/07/16 12/07/16 11:30 11:35 12:51 Temperature 97.4 F Pulse Rate 95 Respiratory 15 16 16 Rate Blood Pressure 105/53 (mmHg) O2 Sat by Pulse 97 Oximetry 12/07/16 12/07/16 12/07/16 13:51 15:31 16:04 Temperature 98.5 F Pulse Rate 77 Respiratory 16 17 16 Rate Blood Pressure 127/55 (mmHg) O2 Sat by Pulse 91 Oximetry 12/07/16 12/07/16 12/07/16 19:20 19:30 20:00 Temperature 99.6 F Pulse Rate 91 Respiratory 18 18 16 Rate Blood Pressure 153/66 (mmHg) O2 Sat by Pulse 88 Oximetry 12/07/16 12/07/16 12/07/16 20:12 20:20 20:29 Temperature Pulse Rate 85 Respiratory 18 18 Rate Blood Pressure (mmHg) O2 Sat by Pulse 100 Oximetry 12/07/16 12/07/16 12/07/16 22:12 23:24 23:26 Temperature 98.6 F Pulse Rate 89 Respiratory 16 18 Rate Blood Pressure 150/61 (mmHg) O2 Sat by Pulse 91 93 Oximetry 12/08/16 12/08/16 12/08/16 00:09 02:09 04:29 Temperature 98.1 F Pulse Rate 88 Respiratory 18 18 18 Rate Blood Pressure 142/67 (mmHg) O2 Sat by Pulse 94 Oximetry 12/08/16 12/08/16 12/08/16 04:33 06:33 07:20 Temperature 98.9 F Pulse Rate 92 Respiratory 18 18 18 Rate Blood Pressure 173/73 (mmHg) O2 Sat by Pulse 90 Oximetry 12/08/16 12/08/16 12/08/16 08:00 08:18 08:51 Temperature Pulse Rate 87 Respiratory 20 20 Rate Blood Pressure 148/65 (mmHg) O2 Sat by Pulse 93 93 Oximetry Oxygen Devices in Use Now: None Appearance: Alert, in a chair. In fair spirits. Looks comfortable. Chiller on L knee. Eyes: No Scleral Icterus Respiratory: Symmetrical Chest Expansion and Respiratory Effort, Clear to Auscultation, Clear to Percussion Cardiovascular: NL Sounds; No Murmurs; No JVD, RRR, No Edema, - Extremities: No Clubbing, Cyanosis, - - Tr edema L leg Skin: No Rash or Ulcers, No Nodules or Sclerosis, - Neurological: Alert and Oriented x 3, NL Sensation Result Diagrams: 12/08/16 05:23 12/08/16 05:23 Assess/Plan/Problems-Billing Assessment: Ms. Moss is a 61 yo female with PMH significant for DM, HTN, hx TIA, HLD and osteoarthritis who presented to the hospital for an elective left total knee arthroplasty with Dr. Hein on 12/06/16. Hospitalists were asked to assist with medical co-management of this patient during her hospitalization. - Patient Problems (1) Diabetes Current Visit: No Status: Chronic Code(s): E11.9 - TYPE 2 DIABETES MELLITUS WITHOUT COMPLICATIONS SNOMED Code(s): 55794622 Comment: - HgA1C 7.5 on 11/30/16 She received 30 units insulin 12/07, FS almost all over 200. Resume Hunulin N 30 daily 10 PM 12/08. Pt advised to discuss more strict insulin regimen with Dr. Lynn. (2) HTN (hypertension) Current Visit: Yes Status: Chronic Code(s): I10 - ESSENTIAL (PRIMARY) HYPERTENSION SNOMED Code(s): 99055625 Comment: Start lisinopril 5 mg daily. She states her lisinopril was stopped after her gastric bypass, then recently re-started at 20 mg daily, although 10 mg is the listed home dose. (3) Status post total left knee replacement Current Visit: Yes Status: Acute Code(s): Z96.652 - PRESENCE OF LEFT ARTIFICIAL KNEE JOINT SNOMED Code(s): 9673347090615 Comment: - Management per Ortho, expected d/c home 12/08 or 12/09. warfarin per Dr. Hein. - Continue PT/OT, pain management, and bowel regime (4) TOO (acute kidney injury) Current Visit: Yes Status: Acute Code(s): N17.9 - ACUTE KIDNEY FAILURE, UNSPECIFIED SNOMED Code(s): 54105530 Comment: Stable. Needs outpt fup. (5) Panic disorder Current Visit: No Status: Chronic Code(s): F41.0 - PANIC DISORDER WITHOUT AGORAPHOBIA SNOMED Code(s): 622704470 Comment: - Continue paroxetine Status and Disposition: Inpatient. Disposition per Orthopedics.
[2016-12-08] MEDS: Lisinopril TAB* 5 MG PO SCH (10:54)
--- NOTE | 2016-12-08 21:58 | DS ---
DISCHARGE SUMMARY: DATE OF ADMISSION: 12/06/16 DATE OF DISCHARGE: 12/08/16 SURGEON: Dr. Latoya Hein. PRINCIPAL DIAGNOSIS: Severe left knee degenerative osteoarthritis. DISCHARGE DIAGNOSIS: Severe left knee degenerative osteoarthritis. HISTORY OF PRESENT ILLNESS: Ms. Moss is a 61-year-old female with complaints of left knee pain s econdary to severe degenerative osteoarthritis. She has failed conservative management and has elec hemanth to proceed with a left total knee arthroplasty. HOSPITAL COURSE: Ms. Moss is a 61-year-old female. She was admitted electively to the hospital on 12/06/16 and underwent a left total knee arthroplasty, which she tolerated well. No complication s. Postoperatively, she was placed on Lovenox and Coumadin for DVT prophylaxis. On postop day 1, h er H and H were 10 and 30. On postop day 2, her H and H were 9.6 and 29. Her INR went from 1.03 on postop day 1 to 2.4 on postop day 2. At the time of discharge, on 12/08/16, she was afebrile and a mbulating well with the aid of a walker. Her wound was clean, dry, and healing well. MEDICATIONS UPON DISCHARGE: 1. Vitamin B12 500 mcg daily. 2. Colace 100 mg 3 times a day as needed. 3. Humalog. 4. Percocet 5/325 one to two tablets every 4 to 6 hours as needed. 5. Paxil 40 mg every day. 6. Ambien 10 mg at q.h.s. 7. Coumadin 2 mg. PHYSICAL EXAMINATION UPON DISCHARGE: She was afebrile. Her vital signs were stable. Her wound was clean, dry, and healing well. No signs of infection. Her lower extremity muscle group strengths w ere intact at 5/5. She has intact sensation, 2+ dorsalis pedis pulses and she was ambulating well w ith the aid of a walker. DISCHARGE INSTRUCTIONS: She is discharged to home with a prescription for Percocet to take as neede d for pain every 4 to 6 hours. She was also given prescription for Coumadin. She will hold her Cou madin tonight and tomorrow. We will have her INR rechecked on Saturday with [facility]. She will start phys ical therapy at her home next week. She is weightbearing as tolerated. We will have her follow up with Dr. Hein in her clinic in 2 weeks. We have asked her to call our office sooner if she has any questions or concerns. JAZIEL STREETER [id number]/[facility] #: [id number]
[2016-12-08] MEDS ORDERED: Insulin NPH(*) 1 UNITS UNIT SUBCUT SCH (22:00)
[2016-12-09] MEDS: oxyCODONE/Acetamin 5/325 MG* TAB PO PRN (04:45)
[2016-12-09 06:28] LABS: Hematocrit 26 % (35-47); Hemoglobin 8.7 g/dl (12.0-16.0)
--- NOTE | 2016-12-09 07:18 | PN ---
Progress Note - Progress Note SOAP: Subjective: pt resting comfortably with no complaints Objective: Vital Signs Temp Pulse Resp BP Pulse Ox 99.4 F 79 18 145/54 91 12/09/16 03:13 12/09/16 03:13 12/09/16 06:45 12/09/16 03:13 12/09/16 03:13 Laboratory Last Values Hgb 8.7 g/dl (12.0-16.0) L 12/09/16 06:10 Hct 26 % (35-47) L 12/09/16 06:10 INR (Anticoag Therapy) 4.11 (0.89-1.11) H 12/09/16 06:10 Sodium 132 mmol/L (133-145) L 12/08/16 05:23 Potassium 4.4 mmol/L (3.5-5.0) 12/08/16 05:23 Chloride 99 mmol/L (101-111) L 12/08/16 05:23 Carbon Dioxide 28 mmol/L (22-32) 12/08/16 05:23 Anion Gap 5 mmol/L (2-11) 12/08/16 05:23 BUN 38 mg/dL (6-24) H 12/08/16 05:23 Creatinine 1.55 mg/dL (0.51-0.95) H 12/08/16 05:23 Est GFR ( Amer) 44.0 (>60) 12/08/16 05:23 Est GFR (Non-Af Amer) 34.2 (>60) 12/08/16 05:23 BUN/Creatinine Ratio 24.5 (8-20) H 12/08/16 05:23 Glucose 297 mg/dL (70-100) H 12/08/16 05:23 POC Glucose (mg/dL) 279 mg/dL (74-106) H 12/08/16 22:01 Calcium 8.3 mg/dL (8.6-10.3) L 12/08/16 05:23 incision: c/d PE:NVI Assessment: s/p left TKA Plan: 1) lovenox/ coumadin/scd's for DVT prophylaxis 2) PT/OT-WBAT 3) home today, F/U in 2 weeks 4) Hold coumadin tonight, recheck INR Saturday
[2016-12-09 07:45] VITALS: BP 130/57
[2016-12-09] MEDS: PARoxetine HCL TAB* 40 MG PO SCH (08:08)
[2016-12-09] MEDS: Insulin LISPRO* 1 UNITS UNIT SUBCUT SCH ×2 (08:08→11:59)
[2016-12-09] MEDS: Lisinopril TAB* 5 MG PO SCH (08:08)
[2016-12-09] MEDS: Docusate CAP* 100 MG PO SCH (08:09)
[2016-12-09] MEDS: Magnesium Hydroxide LIQ* 30 ML UDC PO SCH (08:09)
[2016-12-09] MEDS: Cyanocobalamin TAB* 500 MCG PO SCH (08:09)
[2016-12-09] MEDS ORDERED: Scopolomine PATCH Remove* 1 NOTE MISC PATCH OFF ONE (14:54)
--- NOTE | 2016-12-09 21:10 | DS ---
DISCHARGE SUMMARY: DATE OF ADMISSION: 12/06/16 DATE OF DISCHARGE: 12/09/16 SURGEON: Dr. Latoya Hein. PRINCIPAL DIAGNOSIS: Severe left knee degenerative osteoarthritis. DISCHARGE DIAGNOSIS: Severe left knee degenerative osteoarthritis. HISTORY OF PRESENT ILLNESS: Ms. Moss is a 61-year-old female with continued complaints of left k nee pain. She had failed conservative management and elected to proceed with a left total knee arth roplasty. HOSPITAL COURSE: Ms. Moss is a 61-year-old female. She was admitted electively to the hospital on 12/06/16 and underwent a left total knee arthroplasty. She tolerated the procedure well. Postop eratively, she was placed on Lovenox and Coumadin for DVT prophylaxis. On postoperative day 1, her H and H were 10 and 30. On postop day 2, her H and H were 9.6 and 29. On postoperative day 2, her H and H were 8.7 and 26. Her INR on postoperative day 1 was 1.03. She was given 8 mg of Coumadin th at night. Her INR jumped on postoperative day 2 to 2.4. On postoperative day 3, her INR was 4.11. Her Coumadin was held on postoperative day 2 and she is instructed to hold it again this evening du e to an elevated INR. At the time of discharge, on 12/09/16, she is afebrile. Her vital signs were stable and she was ambulating with the aid of a walker. DISCHARGE MEDICATIONS: 1. Colace 100 mg 2 to 3 tablets a day as needed. 2. Percocet 5/325 one to two tabs every 4 to 6 hours as needed. 3. Vitamin B12 500 mcg daily. 4. Coumadin 2 mg. 5. Humalog insulin. 6. Lisinopril 5 mg every day. 7. Paxil 40 mg every day. 8. Ambien 10 mg q.h.s. PHYSICAL EXAMINATION: Upon discharge, she was afebrile. Vital signs were stable. Her wound was lois an, dry, and healing well with no signs of infection. She is ambulating well with the aid of a walk er. Her lower extremity muscle group strengths were intact at 5/5. She has intact sensation. 2+ d orsalis pedis pulses. DISCHARGE INSTRUCTIONS: She is discharged to home. She is asked to hold her Coumadin dose for this evening, to have her INR rechecked on Saturday. She will begin physical therapy at her home next babak k working on aggressive range of motion. She is given a prescription for Percocet to take every 4 to 6 hours as needed for pain. Dr. Hein would like to see her back in her clinic in 2 weeks. We hav e asked her to call our office sooner if she has any questions or concerns. JAZIEL STREETER [id number]/[facility] #: [id number]
== END 2016-12-09 11:50 | disposition home or self-care (01) | DRG 302 ==
LOC: AA 11:19 → SSU 18:18
PROVIDERS: ADMIT Orthopaedic Surgery Adult Reconstructive Orthopaedic Surgery; ATTEND Orthopaedic Surgery Adult Reconstructive Orthopaedic Surgery
PROC: 0SRD0J9 Replacement of Left Knee Joint with Synthetic Substitute, Cemented, Open Approach (ICD-10-PCS; principal; 2016-12-06 14:00)
DX: M17.12 Unilateral primary osteoarthritis, left knee (principal); N17.9 Acute kidney failure, unspecified; Q21.1 Atrial septal defect; E11.9 Type 2 diabetes mellitus without complications; I10 Essential (primary) hypertension; Z86.73 Personal history of transient ischemic attack (TIA), and cerebral infarction without residual deficits; Z98.84 Bariatric surgery status; Z79.4 Long term (current) use of insulin; Z79.899 Other long term (current) drug therapy; Z88.8 Allergy status to other drugs, medicaments and biological substances; Z82.49 Family history of ischemic heart disease and other diseases of the circulatory system; Z80.0 Family history of malignant neoplasm of digestive organs; F41.0 Panic disorder [episodic paroxysmal anxiety]; E78.5 Hyperlipidemia, unspecified; G43.909 Migraine, unspecified, not intractable, without status migrainosus; J45.909 Unspecified asthma, uncomplicated; M25.762 Osteophyte, left knee
CPT/HCPCS: 36415; 80048; 85014; 85018; 85610; A9270-GY; J0690; J1100; J1200; J1240; J1650; J2250; J2270; J2300; J2405; J2704; J2795

== ENCOUNTER 2017-01-23 09:30 | Emergency (ER) | payer BC ==
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
[2017-01-23] MEDS ORDERED: Ibuprofen TAB* 800 MG PO ONE (10:19)
--- NOTE | 2017-01-23 10:23 | RAD ---
HISTORY: Fall, head trauma COMPARISONS: January 05, 2015 TECHNIQUE: Multiple contiguous axial CT scans were obtained of the head without intravenous contrast. FINDINGS: HEMORRHAGE/INFARCT: There is no hemorrhage or acute infarct. MASSES/SHIFT: There is no mass or shift. EXTRA-AXIAL SPACES: There are no extra-axial fluid collections. SULCI AND VENTRICLES: The sulci and ventricles are normal in size and position for the patient's stated age. CEREBRUM: There is hypoattenuation of the periventricular and subcortical white matter. BRAINSTEM: There are no focal parenchymal abnormalities. CEREBELLUM: There are no focal parenchymal abnormalities. VESSELS: The vessels are grossly normal. PARANASAL SINUSES: The paranasal sinuses are clear. ORBITS: The orbits are unremarkable. BONES AND SOFT TISSUE: There is a right parietal scalp hematoma OTHER: None IMPRESSION: NO ACUTE INTRACRANIAL PATHOLOGY.
[2017-01-23 11:05] VITALS: BP 165/74
== END 2017-01-23 11:04 | disposition home or self-care (01) ==
LOC: ED 09:30
DX: S09.90XA Unspecified injury of head, initial encounter (principal); R51 Headache; W22.8XXA Striking against or struck by other objects, initial encounter; Y93.9 Activity, unspecified; Y92.9 Unspecified place or not applicable; Y99.9 Unspecified external cause status
CPT/HCPCS: 70450; 99282; A9270-GY

== ENCOUNTER 2017-09-14 10:39 | Inpatient (IN) | payer BC ==
[2017-09-14] MEDS ORDERED: NS 0.9% 1000 ML* 1,000 ML IV ONE (12:06)
--- NOTE | 2017-09-14 12:35 | RAD ---
HISTORY: Dizziness, fall, head injury COMPARISONS: January 23, 2017 TECHNIQUE: Multiple contiguous axial CT scans were obtained of the head without intravenous contrast. FINDINGS: HEMORRHAGE/INFARCT: There is no hemorrhage or acute infarct. MASSES/SHIFT: There is no mass or shift. EXTRA-AXIAL SPACES: There are no extra-axial fluid collections. SULCI AND VENTRICLES: The sulci and ventricles are normal in size and position for the patient's stated age. CEREBRUM: There is hypoattenuation of the periventricular and subcortical white matter. BRAINSTEM: There are no focal parenchymal abnormalities. CEREBELLUM: There are no focal parenchymal abnormalities. VESSELS: The vessels are grossly normal. PARANASAL SINUSES: The paranasal sinuses are clear. ORBITS: The orbits are unremarkable. BONES AND SOFT TISSUE: No bone or soft tissue abnormalities are noted. OTHER: None IMPRESSION: NO ACUTE INTRACRANIAL PATHOLOGY. CHRONIC SMALL VESSEL ISCHEMIC CHANGES.
--- NOTE | 2017-09-14 12:48 | RAD ---
HISTORY: Dizziness COMPARISONS: November 30, 2016 VIEWS: 1: frontal portable view of the chest at 12:39 PM FINDINGS: LINES AND TUBES: None. CARDIOMEDIASTINAL SILHOUETTE: The cardiomediastinal silhouette is normal for portable technique. PLEURA: The costophrenic angles are sharp. No pleural abnormalities are noted. LUNG PARENCHYMA: The lungs are clear. ABDOMEN: The upper abdomen is clear. There is no subphrenic gas. BONES AND SOFT TISSUES: There is a scoliotic curvature of the spine. IMPRESSION: NO ACTIVE CARDIOPULMONARY DISEASE.
[2017-09-14 12:51] LABS: EGFR Non-African American 60.7 (>60); INR 0.95 (0.77-1.02)
[2017-09-14 13:09] LABS: ABS Basophils 0.1 10^3/ul (0-0.2); ABS Eosinophils 0.1 10^3/ul (0-0.6); ABS Monocytes 0.3 10^3/ul (0-0.8); ABS Neutrophils 4.2 10^3/ul (1.5-7.7); ABS Nucleated RBC 0 10^3/ul; Eosinophil % 1.8 % (0-6); Hematocrit 17 % (35-47); Hemoglobin 5.7 g/dl (12.0-16.0); Lymphocyte % 17.5 % (25-47); Mean Corpuscular HGB Conc 33 g/dl (31-36); Mean Corpuscular Hemoglobin 31 pg (27-31); Mean Corpuscular Volume 92 fL (80-97); Mean Platelet Volume 9 um3 (7.4-10.4); Nucleated Red Blood Cells % 0; Platelet Count 226 10^3/ul (150-450); Red Blood Count 1.86 10^6/ul (4.0-5.4); Red Cell Distribution Width 16 % (10.5-15); White Blood Count 5.6 10^3/ul (3.5-10.8)
[2017-09-14] MEDS ORDERED: Pantoprazole IV* 40 MG IV ONE (13:27)
[2017-09-14] MEDS ORDERED: Pantoprazole IV* 80 MG in NS 0.9% 250 ML* 250 ML IV SCH (14:00)
[2017-09-14] MEDS ORDERED: Ondansetron INJ* 2 MG/ML VIAL IV PRN (14:36)
[2017-09-14 14:39] LABS: Urine Appearance Cloudy; Urine Blood Negative (Negative); Urine Color Yellow; Urine Ketones Negative (Negative); Urine Protein Negative (Negative); Urine Specific Gravity 1.015 (1.010-1.030); Urine Urobilinogen Negative (Negative)
[2017-09-14] MEDS ORDERED: Dextrose 50% Syringe 50 ML* 25 GM/50 ML SYRINGE IV PUSH PRN (14:39)
[2017-09-14] MEDS: NS 0.9% 1000 ML* 1,000 ML IV SCH ×2 (16:18→22:46)
[2017-09-14] MEDS: Pantoprazole IV* 80 MG in NS 0.9% 250 ML* 250 ML IVPB SCH (16:22)
[2017-09-14] MEDS: Insulin LISPRO* 1 UNITS UNIT SUBCUT SCH ×2 (16:49→20:49)
--- NOTE | 2017-09-14 21:29 | HP ---
CC: Dr. Lynn * HISTORY AND PHYSICAL: DATE OF ADMISSION: 09/14/17 PRIMARY CARE PROVIDER: Dr. Lynn. CHIEF COMPLAINT: Dizziness. HISTORY OF PRESENT ILLNESS: Ms. Moss is a 62-year-old female, who has a history of type 2 diabetes, hypertension, past TIA and history of gastric bypass who injured her back approximately 1 month ago and was started on naproxen, who has been taking that or Aleve intermittently since. The patient states that she began to feel dizzy yesterday when she was up and about. She states that day, she did take a fall. It is unclear if she felt dizzy, but she thinks not or if she tripped over something on the floor. The patient' s dizziness persisted into today. Therefore, she presented to the emergency room. The patient does note that her stools turned black yesterday morning. She states that the stool is very loose and very black. She does note that she had some mild abdominal discomfort after eating toast of peanut butter earlier today. PAST MEDICAL HISTORY: 1. Type 2 diabetes. 2. Hypertension. 3. TIA. 4. Migraines. 5. Panic disorder. 6. PFO. 7. OA. PAST SURGICAL HISTORY: 1. Left knee replacement. 2. Anterior cervical diskectomy. 3. Right knee meniscus repair. 4. Gastric bypass. 5. Cholecystectomy. 6. ORIF, left ankle. 7. Hysterectomy. MEDICATIONS: 1. Vitamin B12 500 mcg p.o. daily. 2. Vitamin D 1000 units p.o. daily. 3. Flintstones Gummy Chews 2 chews p.o. daily. 4. Paxil 40 mg p.o. daily. 5. Lisinopril 20 mg p.o. daily. 6. Insulin NPH 25 units subcutaneous q.a.m. ALLERGIES: POLYMYXIN B, HYDROCODONE, OXYCODONE, TETRACYCLINES and ADHESIVE TAPE. FAMILY HISTORY: Mom is living. She has a history of diabetes and hypertension as well as rheumatoid osteoarthritis. Dad is at the age of 49. He developed liver failure from hepatitis C infected blood that he was transfused. SOCIAL HISTORY: The patient is a lifelong nonsmoker. She does not drink alcohol. 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 She is not . She has 1 child. Her daughter, Robina Culp, phone number is [phone], is her healthcare proxy. REVIEW OF SYSTEMS: A complete 11-system review of systems is obtained. Pertinent positives and negatives are as per HPI and in addition, the patient does state that her appetite has been slightly off for the last 2 days and she has had some anxiety. PHYSICAL EXAMINATION GENERAL: The patient is a well-developed, middle-aged, overweight female, sitting up in the bed, in no acute distress. VITAL SIGNS: Blood pressure 138/78, pulse 69, respirations 20, temp 97.6, O2 sat 99% on room air. HEENT: Pupils are equal and round. Extraocular muscles are intact. Oropharynx is clear. Oral mucosa is moist. There is no submandibular, cervical or subclavicular adenopathy. Thyroid is not enlarged. No thyroid nodules are noted. PULMONARY: Lungs are clear to auscultation bilaterally. CARDIAC: Normal S1, S2. Regular rate and rhythm. I do not appreciate any murmurs. ABDOMEN: Bowel sounds are present. Abdomen is soft, nontender, and nondistended. MUSCULOSKELETAL: There is no cyanosis or clubbing of the digits. There is full active range of motion of all 4 extremities. SKIN: Warm and dry. There are no rashes. NEUROLOGIC: Cranial nerves II through XII are grossly intact. Sensation is intact to light touch throughout. Strength is 5/5 and symmetric in both the upper and lower extremities bilaterally. PSYCH: The patient is alert. She is oriented x3. Affect appears appropriate. DIAGNOSTIC STUDIES/LAB DATA: WBC 5.6, hemoglobin 5.7, hematocrit 17, platelets 226. INR 0.95. Sodium 137, potassium 4.0, chloride 106, CO2 27, BUN 50, creatinine 0.94, glucose 264, lactic acid 1.5, calcium 8.5, magnesium 1.9, bilirubin 0.3. AST 15, ALT 12, alk phos 76. CPK 53. Troponin 0. CRP 4.92. BNP 87. Albumin 3.1. TSH 0.97. Serum alcohol less than 10. Chest x-ray, no active cardiopulmonary disease. CT brain, no acute intracranial pathology. There are chronic small vessel ischemic changes. EKG reveals normal sinus rhythm without any acute ST-T wave abnormalities. ASSESSMENT AND PLAN: Ms. Moss is a 62-year-old female with a history of type 2 diabetes, hypertension and past gastric bypass who presents to the emergency room with complaints of dizziness and is found to be markedly anemic. 1. Probable upper GI bleed. The patient likely suffering from an upper GI bleed. Her BUN is elevated at 50. She does admit to taking naproxen or Naprosyn intermittently over the last 1 month. She does not take this on a daily basis. The plan will be to admit the patient, transfuse her 2 units of packed red blood cells and administer normal saline. She will be placed on a Protonix drip. GI consultation will be requested with Dr. Norris, who has already been notified of the patient. The patient has been instructed to never take NSAIDs again. 2. Type 2 diabetes. I will continue the patient on her NPH insulin and check fingersticks a.c. and h.s. with lispro sliding scale. 3. Hypertension. The patient's blood pressure is under good control. She will be maintained on her usual dose of lisinopril. 4. Anxiety. The patient will continue Paxil. 5. DVT prophylaxis. According to the Adult Thrombosis Prophylaxis Risk Factor Assessment Guide, the patient has a total risk factor score of 2 making her moderate risk. SCDs alone will be utilized as DVT prophylaxis given her probable upper GI bleed. 6. Code status is full. TIME SPENT: 65 minutes were spent admitting this patient. [id number]/[facility] #: [id number] VAL
[2017-09-14] MEDS: traZODone TAB* 50 MG TAB PO SCH (21:53)
[2017-09-14 22:24] LABS: Hematocrit 22 % (35-47); Hemoglobin 7.3 g/dl (12.0-16.0)
[2017-09-15] MEDS: Pantoprazole IV* 80 MG in NS 0.9% 250 ML* 250 ML IVPB SCH ×4 (01:52→22:57)
[2017-09-15 05:48] LABS: Hematocrit 19 % (35-47); Hemoglobin 6.6 g/dl (12.0-16.0); Mean Corpuscular HGB Conc 35 g/dl (31-36); Mean Corpuscular Hemoglobin 31 pg (27-31); Mean Corpuscular Volume 89 fL (80-97); Mean Platelet Volume 9 um3 (7.4-10.4); Platelet Count 187 10^3/ul (150-450); Red Blood Count 2.12 10^6/ul (4.0-5.4); Red Cell Distribution Width 16 % (10.5-15); White Blood Count 5.6 10^3/ul (3.5-10.8)
[2017-09-15 05:57] LABS: EGFR Non-African American 71.1 (>60)
[2017-09-15] MEDS: PARoxetine HCL TAB* 40 MG PO SCH (08:18)
[2017-09-15] MEDS: Insulin NPH(*) 1 UNITS UNIT SUBCUT SCH (08:18)
[2017-09-15] MEDS: Insulin LISPRO* 1 UNITS UNIT SUBCUT SCH ×4 (08:18→22:09)
[2017-09-15] MEDS: NS 0.9% 1000 ML* 1,000 ML IV SCH (09:45)
--- NOTE | 2017-09-15 10:30 | PN ---
Subjective Date of Service: 09/15/17 Interval History: Ms. Moss denies any bowel movements since admission. She denies nausea or abdominal pain. She continues to complain of pain in her right low back which she has had since she feel about a month ago. She reports that this fall was related to low blood sugar, now resolved. Objective Active Medications: Dextrose (D50w Syringe 50 Ml*) 12.5 gm IV PUSH .FOR FS < 60 - SS PRN Sodium Chloride (Ns 0.9% 1000 Ml*) 1,000 mls @ 100 mls/hr IV PER RATE TANYA Pantoprazole Sodium 80 mg/ (Sodium Chloride) 250 mls @ 25 mls/hr IVPB Q10H TANYA Insulin Human Lispro (Humalog*) 0 units SUBCUT ACHS TANYA Insulin Human NPH (Insulin Nph(*)) 15 units SUBCUT DAILY TANYA Ondansetron HCl (Zofran Inj*) 4 mg IV Q6H PRN Paroxetine HCl (Paxil Tab*) 40 mg PO QAM TANYA Trazodone HCl (Desyrel Tab*) 50 mg PO BEDTIME TANYA Vital Signs: Temp Pulse Resp BP Pulse Ox 98.1 F 73 16 146/63 100 09/15/17 07:22 09/15/17 07:22 09/15/17 08:28 09/15/17 07:22 09/15/17 07:22 Oxygen Devices in Use Now: None Appearance: Female sitting up in bed in NAD, pain with deep palption along right lumbar spine, no pain over spine, no cva tenderness Eyes: No Scleral Icterus Ears/Nose/Mouth/Throat: Mucous Membranes Moist Neck: Trachea Midline Respiratory: Symmetrical Chest Expansion and Respiratory Effort, Clear to Auscultation Cardiovascular: NL Sounds; No Murmurs; No JVD, No Edema Abdominal: NL Sounds; No Tenderness; No Distention Lymphatic: No Cervical Adenopathy Extremities: No Edema Skin: No Rash or Ulcers Neurological: Alert and Oriented x 3, NL Muscle Strength and Tone Nutrition: Taking PO's Result Diagrams: 09/15/17 05:10 09/15/17 05:10 Assess/Plan/Problems-Billing Assessment: Ms. Moss is a 62 yo F with a PMH of stephna-en-y surgery, DM, and HTN who was admitted on 09/14/17 after fall with new anemia suspected secondary to upper GI bleed. - Patient Problems (1) Upper GI bleed Comment: - Hgb fell after 2 units PRBC overnight, hemodynamically stable. - Plan for 2 additional units now. - Suspect upper GI source due to high BUN and NSAID use over the past month. - Appreciate GI consult, plan for EGD tomorrow. (2) Diabetes Comment: - BGs well controlled. - Continue lower dose home NPH insulin given anticipated decreased oral intake. (3) HTN (hypertension) Comment: - SBP 130-150s. - Hold lisinopril during acute GI bleed. (4) DVT prophylaxis Comment: - SCDs. (5) Full code status Comment: Status and Disposition: Inpatient with expected LOS > 2 days. Anticipate discharge to home when medically stable.
--- NOTE | 2017-09-15 16:10 | CONS ---
CC: Dr. Lynn * CONSULTATION REPORT: DATE OF CONSULT: 09/15/17 REQUESTING PHYSICIAN: Noelle Slater DO INDICATION: Melena and anemia. NARRATIVE: Mrs. Moss is a very pleasant 62-year-old female who underwent a Miranda- en-Y gastric bypass surgery. The patient states that she has been falling and injured her back here recently. She has been taking a large amount of Advil and Naprosyn. She states a couple of days ago, she developed melena and became very dizzy. She was having mild abdominal discomfort, decided that she should come to the emergency room. In the emergency room, she was found to be anemic, she was admitted to the hospital. Since being here, she has been feeling better. She denies any bowel movements in the past 24 hours. She has been started on IV Protonix and IV fluids. She has been on a clear liquid diet , tolerating it well. She states that she does feel better and would like to take a shower this morning. She does feel hungry. PAST MEDICAL HISTORY: Significant for Miranda-en-Y gastric bypass surgery, morbid obesity, diabetes type 2, hypertension, osteoarthritis, history of a TIA. PAST SURGICAL HISTORY: Includes knee replacement, gastric bypass, cholecystectomy, and hysterectomy. MEDICATIONS: Upon admission include: 1. Insulin. 2. Lisinopril. 3. Paxil. 4. Multiple vitamins. ALLERGIES: HYDROCODONE, OXYCODONE, TETRACYCLINE, and ADHESIVE TAPE. FAMILY HISTORY: Diabetes, hypertension, hep C. SOCIAL HISTORY: She denies any tobacco or alcohol. She lives in her own house with her elderly mother. REVIEW OF SYSTEMS: Twelve systems were reviewed, other than that mentioned in the HPI were unremarkable. PHYSICAL EXAMINATION: Temperature is 98.1, blood pressure is 146/63. General: Well-appearing female, sitting up in the bed, alert and oriented, pleasant, fluent. HEENT: Mucous membranes are moist without lesions, ulcers, or exudate. Neck is supple. Trachea is midline. Head is normocephalic, atraumatic. Heart: Regular rate and rhythm. Lungs: Clear to auscultation. Abdomen: Positive bowel sounds, obese, soft, nontender, nondistended. No hepatosplenomegaly, masses, rebound, or guarding. Skin is warm and dry. LABORATORY DATA: Of note, hemoglobin was 5.7 up to 7.3 down to 6.6, she received 2 units of PRBCs; platelets of 187. INR 0.95, BUN is 33. ASSESSMENT AND PLAN: This is a 62-year-old female with an upper GI bleed likely secondary to nonsteroidals, who has also had a Miranda-en-Y gastric bypass surgery. At this point, she is not actively bleeding. Her vital signs are stable. I would recommend we continue to monitor her hemoglobin. She already is on IV Protonix. She needs to avoid all nonsteroidals. She can have a full liquid diet advanced as tolerates and I would like to perform an upper endoscopy tomorrow. She is understanding and agreeable. [id number] #: [id number] VAL
[2017-09-15 18:04] LABS: Hematocrit 27 % (35-47); Hemoglobin 9.2 g/dl (12.0-16.0)
[2017-09-15] MEDS: traZODone TAB* 50 MG TAB PO SCH (22:09)
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
[2017-09-16] MEDS: NS 0.9% 1000 ML* 1,000 ML IV SCH (04:26)
[2017-09-16] MEDS: Pantoprazole IV* 80 MG in NS 0.9% 250 ML* 250 ML IVPB SCH ×2 (04:27→06:32)
[2017-09-16 06:52] LABS: Hematocrit 26 % (35-47); Hemoglobin 8.7 g/dl (12.0-16.0)
--- NOTE | 2017-09-16 08:49 | PN ---
Subjective Date of Service: 09/16/17 Interval History: Ms. Moss states that she is feeling well and is eager to get her EGD over. She denies any bowel movements or abdominal pain. She further denies chest pain or SOB. Objective Active Medications: Dextrose (D50w Syringe 50 Ml*) 12.5 gm IV PUSH .FOR FS < 60 - SS PRN Sodium Chloride (Ns 0.9% 1000 Ml*) 1,000 mls @ 100 mls/hr IV PER RATE TANYA Pantoprazole Sodium 80 mg/ (Sodium Chloride) 250 mls @ 25 mls/hr IVPB Q10H TANYA Insulin Human Lispro (Humalog*) 0 units SUBCUT ACHS TANYA Insulin Human NPH (Insulin Nph(*)) 15 units SUBCUT DAILY TANYA Ondansetron HCl (Zofran Inj*) 4 mg IV Q6H PRN Paroxetine HCl (Paxil Tab*) 40 mg PO QAM TANYA Trazodone HCl (Desyrel Tab*) 50 mg PO BEDTIME TANYA Vital Signs: Temp Pulse Resp BP Pulse Ox 97.2 F 70 16 128/56 97 09/16/17 03:57 09/16/17 03:57 09/16/17 03:57 09/16/17 03:57 09/16/17 03:57 Oxygen Devices in Use Now: None Appearance: Female lying in bed in NAD Eyes: No Scleral Icterus Ears/Nose/Mouth/Throat: Mucous Membranes Moist Neck: Trachea Midline Respiratory: Symmetrical Chest Expansion and Respiratory Effort, Clear to Auscultation Cardiovascular: NL Sounds; No Murmurs; No JVD, No Edema Abdominal: NL Sounds; No Tenderness; No Distention Lymphatic: No Cervical Adenopathy Extremities: No Edema Skin: No Rash or Ulcers Neurological: Alert and Oriented x 3, NL Muscle Strength and Tone Nutrition: Taking PO's Result Diagrams: 09/16/17 06:09 09/15/17 05:10 Additional Lab and Data: . Assess/Plan/Problems-Billing Assessment: Ms. Moss is a 62 yo F with a PMH of stephan-en-y surgery, DM, and HTN who was admitted on 09/14/17 after fall with new anemia suspected secondary to upper GI bleed. - Patient Problems (1) Upper GI bleed Comment: - Hgb stable after 4 units PRBC. - Suspect upper GI source due to high BUN and NSAID use over the past month. - Appreciate GI consult, continue protonix and plan for EGD 09/16/17. (2) Diabetes Comment: - BGs well controlled. - Continue lower dose home NPH insulin given anticipated decreased oral intake. (3) HTN (hypertension) Comment: - SBP 130-150s. - Hold lisinopril during acute GI bleed. (4) Depression Comment: - Continue paxil. (5) DVT prophylaxis Comment: - SCDs. (6) Full code status Comment: Status and Disposition: Inpatient with expected LOS > 2 days. Anticipate discharge to home when medically stable.
[2017-09-16] MEDS ORDERED: fentaNYL* 50 MCG/ML 2 ML VIAL (100 MCG VIAL) ONE (09:16)
[2017-09-16] MEDS ORDERED: Midazolam* 1 MG/ML 10 ML VIAL (10 MG) ONE (09:17)
[2017-09-16] MEDS: Insulin LISPRO* 1 UNITS UNIT SUBCUT SCH ×2 (09:32→11:31)
[2017-09-16] MEDS: PARoxetine HCL TAB* 40 MG PO SCH (11:30)
[2017-09-16] MEDS: Insulin NPH(*) 1 UNITS UNIT SUBCUT SCH (11:31)
--- NOTE | 2017-09-16 13:03 | PRO ---
CC: Dr. Lynn * DATE OF PROCEDURE: 09/16/2017. PROCEDURE PERFORMED: EGD. INDICATION: Anemia, Miranda-en-Y gastric bypass surgery, nonsteroidal abuse. REFERRING PHYSICIAN: Dr. Lynn. MEDICATIONS GIVEN: 50 mcg IV Fentanyl and 6 mg IV Versed. PROCEDURE: After the EGD procedure, including the risks, benefits, and alternatives, not limited to perforation, surgery and/or were explained to Ms. Moss, written consent was then obtained. IV medication was given and a bite- block was placed between the teeth. An Olympus gastroscope was then inserted into the patient's mouth, advanced down the esophagus, into the stomach , and into the distal duodenum. In the esophagus at the GE junction, the Z- line was intact. No erosive esophagitis, stricture, or ring was seen. The scope was advanced through the GE junction and into the gastric pouch. The patient does have typical changes associated with a Miranda-en-Y gastric bypass surgery. The scope was advanced through the gastrojejunal anastomosis. There were two small sutures and just on the distal aspect of the anastomosis was a very large, clean based ulcer. No bleeding was seen. No clot was seen. The scope was advanced down both limbs, both were unremarkable. The scope was then withdrawn from the patient. She tolerated the procedure well and was returned to her hospital room in stable condition. IMPRESSION: 1. Complete upper endoscopy into the jejunum. 2. Large clean based ulcer on the jejunal side of the gastrojejunal anastomosis. 3. I would recommend a repeat EGD in six weeks from now. The patient needs to avoid all nonsteroidals and use twice a day PPI until that point. [id number]/[facility] [place] [facility] #: [id number] [facility]
[2017-09-16 15:04] VITALS: BP 146/74
--- NOTE | 2017-09-17 06:54 | DS ---
CC: Dr. Lynn * DISCHARGE SUMMARY: DATE OF ADMISSION: 09/14/17. DATE OF DISCHARGE: 09/16/17. PRIMARY CARE PHYSICIAN: Dr. Lynn. ATTENDING PHYSICIAN: Dr. Giovanna Weinstein * (dictation provided by Heather Negron NP ). PRIMARY DIAGNOSIS: Anemia secondary to gastric ulcer secondary to NSAID use. SECONDARY DIAGNOSES: 1. Type 2 diabetes, insulin dependent. 2. Hypertension. 3. History of transient ischemic attack. 4. Migraines. 5. Panic disorder. 6. Patent foramen ovale. 7. Osteoarthritis. PAST SURGICAL HISTORY: 1. Left knee replacement. 2. Anterior cervical diskectomy. 3. Right knee meniscus repair. 4. Gastric bypass. 5. Cholecystectomy. 6. ORIF left ankle. 7. Hysterectomy. MEDICATIONS AT THE TIME OF DISCHARGE: 1. Omeprazole 20 mg p.o. b.i.d. 2. Vitamin B12 500 mcg p.o. daily. 3. Vitamin D 1000 units p.o. daily. 4. Flintstones Gummy Chews 2 chews p.o. daily. 5. Paxil 40 mg p.o. daily. 6. Lisinopril 20 mg p.o. daily. 7. Insulin NPH 25 units subcutaneous q.a.m. 8. Hold all NSAIDs. HOSPITAL COURSE: Ms. Moss is a 62-year-old female with a past medical history as outlined above who presented to the emergency room on 09/14/17 with concerns for dizziness. Please see the dictated H and P from Noelle Slater for complete details. In brief, the patient states she had injured her back after a fall about one month ago related to hypoglycemia. She had been taking naproxen for back pain. She started to feel dizzy whenever she would ambulate since, for at least a week and therefore ultimately presented to the emergency room. She did note at that time that her stools were dark black. Ms. Moss had labs which showed she had a hemoglobin of 5.7 and hematocrit of 17. Her BUN was 50. Her creatinine was normal at 0.94. It was suspected that she likely had an upper GI bleed secondary to NSAID use. Ms. Moss ultimately received 4 units of packed red blood cells. With this her hemoglobin is 8.7 today. She went on to have an upper endoscopy with Dr. Norris. I refer you to his notes for complete details, but he noted that the patient had "large, clean-based ulcer on the jejunal side of the gastrojejunal anastomosis." Ms. Moss is doing well and she is very eager to discharge to home. Dr. Norris recommends that she continue on omeprazole b.i.d., and that she have a followup EGD in 6 weeks. DISPOSITION: Home. DIET: Consistent carbohydrate. ACTIVITY: As tolerated. FOLLOWUP PLANS: 1. Please followup with Dr. Norris for an upper endoscopy in 6 weeks. 2. Please followup with Dr. Lynn in the next week regarding this acute hospitalization. Approximately 60 minutes was spent on the discharge of this patient; more than half the time was spent with her at the bedside reviewing the events leading up to to this hospitalization, performing the physical examination, and reviewing my plan of care. HEATHER NEGRON NP [id number]/[facility] #: [id number] [facility]
== END 2017-09-16 15:35 | disposition home or self-care (01) | DRG 241 ==
LOC: ED 10:39 → MED 14:36
PROVIDERS: ADMIT Hospitalist; ATTEND Internal Medicine
PROC: 0DJ08ZZ Inspection of Upper Intestinal Tract, Via Natural or Artificial Opening Endoscopic (ICD-10-PCS; 2017-09-14)
PROC: 30233N1 Transfusion of Nonautologous Red Blood Cells into Peripheral Vein, Percutaneous Approach (ICD-10-PCS; principal; 2017-09-15)
DX: K25.4 Chronic or unspecified gastric ulcer with hemorrhage (principal); Q21.1 Atrial septal defect; E66.01 Morbid (severe) obesity due to excess calories; D64.9 Anemia, unspecified; E11.9 Type 2 diabetes mellitus without complications; E78.00 Pure hypercholesterolemia, unspecified; Z98.84 Bariatric surgery status; Z88.5 Allergy status to narcotic agent; Z88.1 Allergy status to other antibiotic agents; Z88.8 Allergy status to other drugs, medicaments and biological substances; I10 Essential (primary) hypertension; M17.0 Bilateral primary osteoarthritis of knee; Z90.710 Acquired absence of both cervix and uterus; Z90.49 Acquired absence of other specified parts of digestive tract; Z82.49 Family history of ischemic heart disease and other diseases of the circulatory system; Z83.3 Family history of diabetes mellitus; Z80.9 Family history of malignant neoplasm, unspecified; F32.9 Major depressive disorder, single episode, unspecified; M54.5 Low back pain; T39.395A Adverse effect of other nonsteroidal anti-inflammatory drugs [NSAID], initial encounter; Y92.9 Unspecified place or not applicable; Z86.73 Personal history of transient ischemic attack (TIA), and cerebral infarction without residual deficits; G43.909 Migraine, unspecified, not intractable, without status migrainosus; F41.0 Panic disorder [episodic paroxysmal anxiety]; M19.90 Unspecified osteoarthritis, unspecified site; Z95.2 Presence of prosthetic heart valve; Z96.652 Presence of left artificial knee joint; Z79.4 Long term (current) use of insulin
CPT/HCPCS: 36415; 70450; 71045; 80048; 80053; 80307; 80320; 81003; 81015; 82272; 82550; 83605; 83735; 83880; 84443; 84484; 85014; 85018; 85025; 85027; 85610; 85730; 86140; 86850; 86900; 86901; 86922; 87086; 93005; 94760; 99156; 99157; 99284; A9270-GY; G0480; J2250; J3010; P9016; P9040

== ENCOUNTER 2018-04-11 05:57 | Inpatient (IN) | payer BC ==
--- NOTE | 2018-04-04 13:30 | HP ---
AMENDED REPORT NOW INCLUDES COSIGNER DESIGNATION - ESIGNED BEFORE ADJUSTMENT HISTORY AND PHYSICAL: DATE OF ADMISSION/SURGERY: 04/11/18 DATE OF OFFICE VISIT: 04/02/18 SURGEON: Latoya Hein MD * (DICTATED BY JAZIEL STREETER) PROCEDURE: Right total knee arthroplasty. CHIEF COMPLAINT: Right knee pain. HISTORY OF PRESENT ILLNESS: Ms. Moss is a 62-year-old female with complaints of right knee pain. She has failed conservative treatment and elected to proceed with a right total knee arthroplasty. PAST MEDICAL HISTORY: Diabetes, hypertension and TIA. PAST SURGICAL HISTORY: Gastric bypass, left total knee arthroplasty, right knee arthroscopy, hysterectomy, unknown cervical surgery, cholecystectomy and left ankle surgery. CURRENT MEDICATIONS: 1. Iron. 2. Lisinopril 10 mg daily. 3. Paroxetine 20 mg daily. 4. Humulin. 5. Vitamin B12. 6. Vitamin D3. 7. Multivitamin. ALLERGIES: HYDROCODONE, OXYCODONE causing nausea and vomiting, and TETRACYCLINE. FAMILY HISTORY: Coronary artery disease, colon cancer, and stroke. SOCIAL HISTORY: She is a 62-year-old female. She lives alone. She does not smoke or use drugs. Uses occasional alcohol. REVIEW OF SYSTEMS: A complete 14-point review of systems was reviewed with the patient. It was positive for diabetes. She denies history of DVT, PE, hepatitis, HIV, or anesthesia problems. PHYSICAL EXAMINATION GENERAL: She is well developed, well nourished, in no acute distress. VITAL SIGNS: She stands 5 feet 4 inches tall, weighs 180 pounds. Her blood pressure 130/74 and heart rate 72. HEENT: Normocephalic, atraumatic. NECK: Supple. No palpable lymph nodes. PULMONARY: Lungs are clear to auscultation bilaterally. CARDIO: Regular rate and rhythm. Strong S1, S2. ABDOMEN: Soft, nontender, nondistended. NEUROLOGICAL: She is alert and oriented x3. MUSCULOSKELETAL: Right lower extremity, skin is intact. There are no open wounds or abrasions. There is some moderate joint effusion. She has tenderness over the medial lateral joint line. Range of motion is 5 to 120 degrees of flexion with patellofemoral crepitus. 2+ dorsalis pedis pulses. Intact sensation. Her lower extremity muscle group strengths are intact at 5/5. ASSESSMENT AND PLAN: Ms. Moss is a 62-year-old female with complaints of right knee pain secondary to end-stage osteoarthritis. She has failed conservative treatment and elected to proceed with a right total knee arthroplasty, which is scheduled for 04/11/[address] Hein discussed the risks and benefits of the surgery at today's visit and all of her questions were answered. She will follow up with Dr. Hein 2 weeks after the surgery. JAZIEL STREETER [id number]/[facility] #: [id number] MTDAretha
[~2018-04-11 05:57] MED LIST changes: +Buffered Lidocaine 0.9% SYRIN* 5 ML/SYR SYRINGE INTRADERM ONE; -Buffered Lidocaine 1% SYR 3ML* 3 ML/SYR SYRINGE INTRADERM ONE; -Dexamethasone IV* 4 MG/ML 1 ML (4 MG) IV SLOW PU ONE; -Famotidine IV* 10 MG/ML 2 ML (20 mg) IV ONE; +Tranexamic Acid 1,000 MG in NS 0.9% 50 ML* (outpatient use) IV SCH
--- OUTSIDE RECORDS SUMMARY | 2018-04-11 06:02 | XMS REPORT ---
:1955 External Reference #:[id number] Author Organization [facility] Address [address] [facility] [place] [address] Phone [phone] Care Team Providers Name Role Phone Abdoul Lynn MD Primary Care Physician Unavailable Payers Type Date Identification Numbers Payment Provider Subscriber Commercial Effective: Policy Number: MAN Jill Mckeon 2015 [id number] PayID: [id number] [address] [address] [place] [address] Medigap Part B Effective: 2012 Policy Number: MAN Jill Mckeon [id number] Expires: 2014 PayID: [id number] [address] [address] [place] [address] Workers Compensation Onset: 2009 Policy Number: Cam Melody Mckeon [id number] PayID: [id number] [address] [address] [place] [address] Medigap Part B Effective: 2010 Policy Number: MAN Jill Mckeon [id number] Expires: 2012 PayID: [id number] [address] [address] [place] [address] Problems Date Description Provider Status Onset: 01/23/2016 Localized, primary osteoarthritis Latoya Hein M.D. Active Onset: 01/23/2016 Localized, primary osteoarthritis of the Latoya Hein M.D. Active hand Onset: 02/18/2017 Arthroplasty of knee Latoya Hein M.D. Active Onset: 07/09/2017 Sprain, tarsometatarsal joint Pascual Bobby MD Active Family History Date Family Member(s) Problem(s) Comments General Cancer General Heart Disease Father Hepatitis C contracted from blood infusion, : (age 49 Father due to Hepatitis, Years) Viral Mother Hypertension : Mother due to Stroke lives with patient since (03/01/2016) (age CVA 78 Years) Mother Diabetes Onset: Siblings 4 3 brothers 1 sister 1 (03/01/2016) brother with colon ca. 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 Cigarette Use Never Smoked Cigarettes ETOH Use Currently consumes alcohol one glass of wine a month Smoking Patient has never smoked Recreational Drug Use Denies Drug Use Daily Caffeine Consumes on average 2 cups of regular coffee per day Exercise Type/Frequency Exercises regularly walking, [employer] 3x/weekly Allergies, Adverse Reactions, Alerts Date Description Reaction Status Severity Comments 06/01/2013 Tetracycline active 06/01/2013 Hydrocodone active 06/01/2013 Polysporin active 01/04/2017 Oxycodone active Medications Medication Date Status Form Strength Qnty SIG Indications Ordering Provider Humulin Active SSC pt uses SSC Unknown /0000 once a day and is not allowed to take more that 30 units at a time Paroxetine HCL Active 20mg 1 po daily Unknown /0000 Flintstones Active Chewtabs 60mg 2 tabs once Unknown Complete /0000 daily Vitamin B-12 Active Tablets 1 by mouth Unknown Natural /0000 every day Vitamin D3 Active Tablets 2 tabs once Unknown Complete /0000 daily Lisinopril Active Tablets 10mg 1 by mouth Unknown /0000 every day Iron Active Unknown /0000 Bactrim DS 12/03 Hx Tablets 800-160mg 6tabs take 1 by mouth twice Angel Luis, - a day for 3 M.D. /1986 Coumadin 11/30 Hx Tablets 2mg 90tab take 1-3 s tabs by Angel Luis, - mouth at 5 M.D. 01/03 at night directed Oxycodone-Acetamin 05/05 Hx Tablets 5-325mg 90tab 1-2 tabs by Latoya s mouth every Angel Luis, - 4-6 hours M.D. 01/03 as needed for pain Colace 11/30 Hx Capsules 100mg 90cap 1 tab by Latoya s mouth 2-3 Angel Luis, - times a day M.D. 01/03 as needed Percocet 10/18 Hx Tablets 5-325mg 60tab 1-2 tabs by Latoya s mouth bid Angel Luis, - as needed M.D. 02/28 pain Naproxen 10/18 Hx Tablets 500mg 60tab 1 by mouth Latoya s twice a day Angel Luis, - as needed M.D. 01/21 Naprosyn 06/01 Hx Tablets 375mg 60tab 1 po bid s sylvia Odom - M.DMissy 10/17 Percocet 10/07 Hx Tablets 10-325mg 40tab 1-2 q4h predelmira Barr s Pain Riddhi, - M.DMissy 06/01 Medrol (Carter) 09/30 Hx Tablets 4mg 1tabs per Dre Barr dosepack Riddhi, - [facility] M.DMissy 10/17 Aspirin 00 Hx Tablets 81mg 1 by mouth Unknown /0000 every day - 05/03 Lisinopril-Hydroch Hx Tablets 20-12.5mg 1 by mouth Unknown lorothiazide /0000 every day - 01/21 Metformin HCL Hx Tablets 1000mg 1 by mouth Unknown /0000 twice a day - 05/03 Montelukast Sodium 00 Hx Tablets 10mg 1 by mouth Unknown /0000 every day - 01/03 Lisinopril 0000 Hx 20mg 1 po bid Unknown /0000 - 05/03 Atorvastatin 00/00 Hx 20mg 1 po daily Unknown Calcium /0000 - 05/03 Lizeth 00/00 Hx daily Unknown /0000 Hydrochlorothiazid 0000 Hx Tablets 12.5mg 1 by mouth Unknown e /0000 every day Medications Administered in Office Medication Date Status Form Strength Qnty SIG Indications Ordering Provider Depomedrol Administered Injection Latoya 40MG 018 Delaney Hein Depomedrol Administered Injection Latoya 40MG 017 Delaney Hein Depomedrol Administered Injection Latoya 40MG 017 Delaney Hein Depomedrol Administered Injection Latoya 40MG 016 Delaney Hein Depomedrol Administered Injection Latoya 40MG 016 Delaney Hein Depomedrol Administered Injection Latoya 40MG 016 Delaney Hein Depomedrol Administered Injection Latoya 80MG 015 Delaney Hein Vital Signs Date Vital Result Comment 04/02/2018 Height 64 inches 5'4" Weight 181.00 lb Heart Rate 72 /min BP Systolic 130 mmHg BP Diastolic 74 mmHg BMI (Body Mass Index) 31.1 kg/m2 03/05/2018 Height 64 inches 5'4" Weight 180.00 lb Heart Rate 66 /min BP Systolic Sitting 140 mmHg BP Diastolic Sitting 78 mmHg Respiratory Rate 16 /min Pain Level 7 BMI (Body Mass Index) 30.9 kg/m2 12/09/2017 Height 64 inches 5'4" Weight 180.00 lb BP Systolic 140 mmHg BP Diastolic 78 mmHg Body Temperature 97.4 F BMI (Body Mass Index) 30.9 kg/m2 07/30/2017 Height 64 inches 5'4" Weight 187.00 lb Heart Rate 78 /min Respiratory Rate 18 /min Body Temperature 98.0 F Pain Level 0 BMI (Body Mass Index) 32.1 kg/m2 07/09/2017 Height 64 inches 5'4" Weight 187.00 lb Heart Rate 68 /min Respiratory Rate 18 /min Body Temperature 98.9 F Pain Level 7 BMI (Body Mass Index) 32.1 kg/m2 05/20/2017 Height 64 inches 5'4" Weight 185.00 lb Heart Rate 65 /min BP Systolic 143 mmHg BP Diastolic 69 mmHg Body Temperature 97.4 F BMI (Body Mass Index) 31.8 kg/m2 04/25/2017 Height 64 inches 5'4" Weight 191.00 lb Heart Rate 78 /min BP Systolic 118 mmHg BP Diastolic 78 mmHg Respiratory Rate 18 /min Body Temperature 98.7 F BMI (Body Mass Index) 32.8 kg/m2 02/18/2017 Height 64 inches 5'4" Weight 190.00 lb Heart Rate 64 /min BP Systolic 152 mmHg BP Diastolic 73 mmHg Pain Level 0 BMI (Body Mass Index) 32.6 kg/m2 01/24/2017 Height 64 inches 5'4" Weight 194.00 lb Heart Rate 72 /min BP Systolic 138 mmHg BP Diastolic 84 mmHg Respiratory Rate 16 /min Body Temperature 98.3 F BMI (Body Mass Index) 33.3 kg/m2 01/04/2017 Height 64 inches 5'4" Weight 191.00 lb Heart Rate 74 /min BP Systolic 143 mmHg BP Diastolic 86 mmHg Pain Level 2 BMI (Body Mass Index) 32.8 kg/m2 12/17/2016 Height 64 inches 5'4" Weight 200.00 lb BP Systolic 147 mmHg BP Diastolic 79 mmHg Respiratory Rate 16 /min Body Temperature 97.9 F Pain Level 2 BMI (Body Mass Index) 34.3 kg/m2 11/30/2016 Height 64 inches 5'4" Weight 200.00 lb Heart Rate 61 /min BP Systolic 166 mmHg BP Diastolic 81 mmHg Body Temperature 97.6 F BMI (Body Mass Index) 34.3 kg/m2 11/05/2016 Height 64 inches 5'4" Weight 200.00 lb Heart Rate 72 /min BP Systolic 191 mmHg BP Diastolic 94 mmHg Body Temperature 98.9 F Pain Level 3 BMI (Body Mass Index) 34.3 kg/m2 10/25/2016 Height 64 inches 5'4" Weight 209.00 lb Heart Rate 72 /min BP Systolic 160 mmHg BP Diastolic 92 mmHg Respiratory Rate 16 /min Body Temperature 98.8 F BMI (Body Mass Index) 35.9 kg/m2 09/10/2016 Height 64 inches 5'4" Weight 210.00 lb Heart Rate 68 /min Respiratory Rate 16 /min Pain Level 5 BMI (Body Mass Index) 36.0 kg/m2 07/26/2016 Height 64 inches 5'4" Weight 224.00 lb Heart Rate 66 /min BP Systolic 140 mmHg BP Diastolic 88 mmHg Respiratory Rate 18 /min Body Temperature 97.9 F BMI (Body Mass Index) 38.4 kg/m2 05/17/2016 Height 64 inches 5'4" Weight 240.00 lb Heart Rate 78 /min BP Systolic 128 mmHg BP Diastolic 84 mmHg Respiratory Rate 16 /min Body Temperature 98.1 F BMI (Body Mass Index) 41.2 kg/m2 05/04/2016 Heart Rate 75 /min BP Systolic 169 mmHg BP Diastolic 75 mmHg Pain Level 4 04/26/2016 Height 64 inches 5'4" Weight 253.00 lb BMI (Body Mass Index) 43.4 kg/m2 03/01/2016 Height 64 inches 5'4" Weight 264.00 lb with shoes Heart Rate 76 /min BP Systolic Sitting 146 mmHg LA lrg cuff BP Diastolic Sitting 92 mmHg LA lrg cuff BP Systolic Standing 143 mmHg la repeat sit BP Diastolic Standing 81 mmHg la repeat sit BMI (Body Mass Index) 45.3 kg/m2 01/23/2016 Height 64 inches 5'4" Weight 259.00 lb Heart Rate 83 /min BP Systolic 134 mmHg BP Diastolic 82 mmHg BMI (Body Mass Index) 44.5 kg/m2 11/08/2014 Height 64 inches 5'4" Weight 250.00 lb Pain Level 2 BMI (Body Mass Index) 42.9 kg/m2 10/18/2014 Height 64 inches 5'4" Weight 250.00 lb Heart Rate 81 /min BP Systolic 136 mmHg BP Diastolic 82 mmHg Pain Level 9 BMI (Body Mass Index) 42.9 kg/m2 06/01/2013 Height 63 inches 5'3" Weight 250.00 lb Heart Rate 76 /min BP Systolic 137 mmHg BP Diastolic 90 mmHg BMI (Body Mass Index) 44.3 kg/m2 Results Test Date Test Result H/L Range Note CBC Auto Diff 04/02/2018 White Blood Count 5.0 10^3/uL 3.5-10.8 Red Blood Count 3.65 10^6/uL Low 4.00-5.40 Hemoglobin 12.1 g/dL 12.0-16.0 Hematocrit 36 % 35-47 Mean Corpuscular Volume 99 fL High 80-97 Mean Corpuscular Hemoglobin 33 pg High 27-31 Mean Corpuscular HGB Conc 34 g/dL 31-36 Red Cell Distribution Width 13 % 10.5-15 Platelet Count 241 10^3/uL 150-450 Mean Platelet Volume 8.4 um3 7.4-10.4 Abs Neutrophils 2.8 10^3/uL 1.5-7.7 Abs Lymphocytes 1.6 10^3/uL 1.0-4.8 Abs Monocytes 0.3 10^3/uL 0-0.8 Abs Eosinophils 0.2 10^3/uL 0-0.6 Abs Basophils 0.1 10^3/uL 0-0.2 Abs Nucleated RBC 0 10^3/uL Granulocyte % 55.8 % 38-83 Lymphocyte % 32.3 % 25-47 Monocyte % 7.0 % 0-7 Eosinophil % 3.5 % 0-6 Basophil % 1.4 % 0-2 Nucleated Red Blood Cells % 0 Inr/Protime 04/02/2018 Inr 1.00 0.77-1.02 Laboratory test finding 04/02/2018 Partial Thrombo Time 29.3 seconds 26.0 -36.3 PTT Urinalysis Profile 04/02/2018 Urine Color Yellow Urine Appearance Clear Urine Specific Novi 1.018 1.010-1.030 Urine pH 5.0 5-9 Urine Urobilinogen Negative Negative Urine Ketones Negative Negative Urine Protein 2+(100 mg/dL) Negative Urine Leukocytes 1+ Negative Urine Blood Negative Negative * * Negative 1 Urine Nitrite Negative Negative Urine Bilirubin Negative Negative Urine Glucose Negative Negative Urine White Blood Cell Trace(0-5/hpf) Absent Urine Red Blood Cell 1+(3-5/hpf) Absent Urine Bacteria Absent Absent Urine Squamous Epithelial Cell Present Absent Type & Screen 04/02/2018 Patient Blood Type O Positive Antibody Screen NEGATIVE Comp Metabolic Panel 04/02/2018 Sodium 141 mmol/L 135-145 Potassium 3.8 mmol/L 3.5-5.0 Chloride 105 mmol/L 101-111 Co2 Carbon Dioxide 32 mmol/L 22-32 Anion Gap 4 mmol/L 2-11 Glucose 117 mg/dL High 70-100 Blood Urea Nitrogen 18 mg/dL 6-24 Creatinine 0.83 mg/dL 0.51-0.95 BUN/Creatinine Ratio 21.7 High 8-20 Calcium 9.0 mg/dL 8.6-10.3 Total Protein 6.5 g/dL 6.4-8.9 Albumin 3.8 g/dL 3.2-5.2 Globulin 2.7 g/dL 2-4 Albumin/Globulin Ratio 1.4 1-3 Total Bilirubin 0.40 mg/dL 0.2-1.0 Alkaline Phosphatase 111 U/L High 34-104 Alt 15 U/L 7-52 Ast 21 U/L 13-39 Egfr Non- 70.1 >60 Egfr 84.8 >60 2 Urine Culture And 04/02/2018 Urine Culture SEE RESULT BELOW 3 Sensitivities Laboratory test finding 10/29/2017 Point of Care 163 mg/dL High 70-100 4 Glucose Laboratory test finding 10/23/2017 Ferritin 13.7 ng/mL 11-307 Vitamin B12 1012 pg/mL High 180-914 5 Folic Acid (Folate) > 20.00 ng/mL >3.99 Vitamin D Total 25(Oh) 38.3 ng/mL 20-50 Hemoglobin A1c (Glyco HGB) 5.7 % High 4.0-5.6 6 Vitamin B1 (Whole Blood) 131 nmol/L 70-180 7 Vitamin E Level 8.9 mg/L 5.5 - 17.0 8 PTH Related Peptide 0.5 pmol/L <2.0 9 CBC Auto Diff 10/23/2017 White Blood Count 4.5 10^3/uL 3.5-10.8 Red Blood Count 3.18 10^6/uL Low 4.0-5.4 Hemoglobin 9.6 g/dL Low 12.0-16.0 Hematocrit 29 % Low 35-47 Mean Corpuscular Volume 91 fL 80-97 Mean Corpuscular Hemoglobin 30 pg 27-31 Mean Corpuscular HGB Conc 34 g/dL 31-36 Red Cell Distribution Width 18 % High 10.5-15 Platelet Count 261 10^3/uL 150-450 Mean Platelet Volume 8.3 um3 7.4-10.4 Abs Neutrophils 2.0 10^3/uL 1.5-7.7 Abs Lymphocytes 1.9 10^3/uL 1.0-4.8 Abs Monocytes 0.4 10^3/uL 0-0.8 Abs Eosinophils 0.2 10^3/uL 0-0.6 Abs Basophils 0.1 10^3/uL 0-0.2 Abs Nucleated RBC 0 10^3/uL Granulocyte % 43.8 % 38-83 Lymphocyte % 42.6 % 25-47 Monocyte % 8.4 % High 0-7 Eosinophil % 3.8 % 0-6 Basophil % 1.4 % 0-2 Nucleated Red Blood Cells % 0.1 Comp Metabolic Panel 10/23/2017 Sodium 142 mmol/L 139-145 Potassium 3.7 mmol/L 3.5-5.0 Chloride 105 mmol/L 101-111 Co2 Carbon Dioxide 27 mmol/L 22-32 Anion Gap 10 mmol/L 2-11 Glucose 145 mg/dL High 70-100 Blood Urea Nitrogen 19 mg/dL 6-24 Creatinine 0.88 mg/dL 0.51-0.95 BUN/Creatinine Ratio 21.6 High 8-20 Calcium 8.9 mg/dL 8.6-10.3 Total Protein 6.2 g/dL Low 6.4-8.9 Albumin 3.4 g/dL 3.2-5.2 Globulin 2.8 g/dL 2-4 Albumin/Globulin Ratio 1.2 1-3 Total Bilirubin 0.40 mg/dL 0.2-1.0 Alkaline Phosphatase 87 U/L 34-104 Alt 12 U/L 7-52 Ast 20 U/L 13-39 Egfr Non- 65.5 >60 Egfr 84.3 >60 10 Iron & Iron Binding Capacity 10/23/2017 Iron 73 g/dL 50-212 Unsaturated Iron Binding 271 g/dL Total Iron Binding Capacity 344 g/dL 250-450 Transferrin 246 mg/dL 203-362 % Iron Saturation 21 % 15-55 Bariatric Panel Post Op 05/02/2017 Ferritin 11.3 ng/mL 11-307 Vitamin B12 957 pg/mL High 180-914 11 Folic Acid (Folate) > 20.00 ng/mL >3.99 Vitamin D Total 25(Oh) 47.7 ng/mL 20-50 Vitamin B1 (Whole Blood) 136 nmol/L 70-180 12 Vitamin E Level 10.8 mg/L 5.5 - 17.0 13 Iron & Iron Binding Capacity 05/02/2017 Iron 117 g/dL 50-212 Unsaturated Iron Binding 282 g/dL Total Iron Binding Capacity 399 g/dL 250-450 % Iron Saturation 29 % 15-55 CBC Auto Diff 05/02/2017 White Blood Count 5.0 10^3/uL 3.5-10.8 Red Blood Count 3.60 10^6/uL Low 4.0-5.4 Hemoglobin 10.7 g/dL Low 12.0-16.0 Hematocrit 32 % Low 35-47 Mean Corpuscular Volume 89 fL 80-97 Mean Corpuscular Hemoglobin 30 pg 27-31 Mean Corpuscular HGB Conc 33 g/dL 31-36 Red Cell Distribution Width 14 % 10.5-15 Platelet Count 264 10^3/uL 150-450 Mean Platelet Volume 9 um3 7.4-10.4 Abs Neutrophils 2.9 10^3/uL 1.5-7.7 Abs Lymphocytes 1.4 10^3/uL 1.0-4.8 Abs Monocytes 0.4 10^3/uL 0-0.8 Abs Eosinophils 0.2 10^3/uL 0-0.6 Abs Basophils 0 10^3/uL 0-0.2 Abs Nucleated RBC 0 10^3/uL Granulocyte % 58.3 % 38-83 Lymphocyte % 28.9 % 25-47 Monocyte % 7.8 % 1-9 Eosinophil % 4.0 % 0-6 Basophil % 1.0 % 0-2 Nucleated Red Blood Cells % 0 Comp Metabolic Panel 05/02/2017 Sodium 140 mmol/L 133-145 Potassium 3.9 mmol/L 3.5-5.0 Chloride 105 mmol/L 101-111 Co2 Carbon Dioxide 28 mmol/L 22-32 Anion Gap 7 mmol/L 2-11 Glucose 144 mg/dL High 70-100 Blood Urea Nitrogen 25 mg/dL High 6-24 Creatinine 0.95 mg/dL 0.51-0.95 BUN/Creatinine Ratio 26.3 High 8-20 Calcium 9.2 mg/dL 8.6-10.3 Total Protein 6.9 g/dL 6.4-8.9 Albumin 3.7 g/dL 3.2-5.2 Globulin 3.2 g/dL 2-4 Albumin/Globulin Ratio 1.2 1-3 Total Bilirubin 0.50 mg/dL 0.2-1.0 Alkaline Phosphatase 117 U/L High 34-104 Alt 16 U/L 7-52 Ast 23 U/L 13-39 Egfr Non- 60.0 >60 Egfr 77.2 >60 14 Laboratory test finding 11/30/2016 Partial Thrombo 28.0 seconds 26.0- 36.3 15, 16 Time PTT CBC No Diff 11/30/2016 White Blood Count 7.9 10^3/uL 3.5-10.8 15 Red Blood Count 3.84 10^6/uL Low 4.0-5.4 15 Hemoglobin 12.2 g/dL 12.0-16.0 15 Hematocrit 37 % 35-47 15 Mean Corpuscular Volume 95 fL 80-97 15 Mean Corpuscular Hemoglobin 32 pg High 27-31 15 Mean Corpuscular HGB Conc 33 g/dL 31-36 15 Red Cell Distribution Width 14 % 10.5-15 15 Platelet Count 244 10^3/uL 150-450 15 Mean Platelet Volume 10 um3 7.4-10.4 15 Urinalysis Profile 11/30/2016 Urine Color Yellow 15 Urine Appearance Cloudy 15 Urine Specific Novi 1.014 1.010-1.030 15 Urine pH 5.0 5-9 15 Urine Urobilinogen Negative Negative 15 Urine Ketones Negative Negative 15 Urine Protein 2+(100 mg/dL) Negative 15 Urine Leukocytes Trace Negative 15 Urine Blood Negative Negative 15 * * Negative 15, 17 Urine Nitrite Negative Negative 15 Urine Bilirubin Negative Negative 15 Urine Glucose Negative Negative 15 Urine White Blood Cell 1+(6-10/hpf) Absent 15 Urine Red Blood Cell 2+(6-10/hpf) Absent 15 Urine Bacteria 2+ Absent 15 Urine Squamous Epithelial Cell Present Absent 15 Type & Screen 11/30/2016 Patient Blood Type O Positive 15 Antibody Screen NEGATIVE 15 Urine Culture And 11/30/2016 Urine Culture SEE RESULT 15, 18 Sensitivities BELOW Laboratory test 11/30/2016 Hemoglobin A1c 7.5 % High Less than 15, 19 finding (Glyco HGB) 6.0 Inr/Protime 11/30/2016 Inr 0.98 0.89-1.11 15 Comp Metabolic Panel 11/30/2016 Sodium 137 mmol/L 133-145 15 Potassium 3.7 mmol/L 3.5-5.0 15 Chloride 102 mmol/L 101-111 15 Co2 Carbon Dioxide 28 mmol/L 22-32 15 Anion Gap 7 mmol/L 2-11 15 Glucose 204 mg/dL High 70-100 15 Blood Urea Nitrogen 21 mg/dL 6-24 15 Creatinine 0.79 mg/dL 0.51-0.95 15 BUN/Creatinine Ratio 26.6 High 8-20 15 Calcium 8.7 mg/dL 8.6-10.3 15 Total Protein 6.3 g/dL Low 6.4-8.9 15 Albumin 3.3 g/dL 3.2-5.2 15 Globulin 3.0 g/dL 2-4 15 Albumin/Globulin Ratio 1.1 1-3 15 Total Bilirubin 0.50 mg/dL 0.2-1.0 15 Alkaline Phosphatase 119 U/L High 34-104 15 Alt 16 U/L 7-52 15 Ast 20 U/L 13-39 15 Egfr Non- 74.5 >60 15 Egfr 95.8 >60 15, 20 Xray 11/05/2016 Knee 3 Views LT <pending> Bariatric Panel Post Op 10/16/2016 Ferritin 20.0 ng/mL 11-307 21 Vitamin B12 454 pg/mL 180-914 22 Folic Acid (Folate) > 20.00 ng/mL >3.99 23 Vitamin D Total 25(Oh) 32.7 ng/mL 30-50 24 Vitamin B1 (Whole Blood) 148 nmol/L 70-180 25 Vitamin E Level 10.3 mg/L 5.5 - 17.0 26 Comp Metabolic Panel 10/16/2016 Sodium 140 mmol/L 133-145 Potassium 4.0 mmol/L 3.5-5.0 Chloride 102 mmol/L 101-111 Co2 Carbon Dioxide 32 mmol/L 22-32 Anion Gap 6 mmol/L 2-11 Glucose 125 mg/dL High 70-100 Blood Urea Nitrogen 17 mg/dL 6-24 Creatinine 0.75 mg/dL 0.51-0.95 BUN/Creatinine Ratio 22.7 High 8-20 Calcium 9.0 mg/dL 8.6-10.3 Total Protein 6.4 g/dL 6.4-8.9 Albumin 3.4 g/dL 3.2-5.2 Globulin 3.0 g/dL 2-4 Albumin/Globulin Ratio 1.1 1-3 Total Bilirubin 0.70 mg/dL 0.2-1.0 Alkaline Phosphatase 143 U/L High 34-104 Alt 17 U/L 7-52 Ast 20 U/L 13-39 Egfr Non- 79.1 >60 Egfr 101.7 >60 27 CBC Auto Diff 10/16/2016 White Blood Count 6.7 10^3/uL 3.5-10.8 Red Blood Count 4.09 10^6/uL 4.0-5.4 Hemoglobin 12.9 g/dL 12.0-16.0 Hematocrit 38 % 35-47 Mean Corpuscular Volume 93 fL 80-97 Mean Corpuscular Hemoglobin 32 pg High 27-31 Mean Corpuscular HGB Conc 34 g/dL 31-36 Red Cell Distribution Width 13 % 10.5-15 Platelet Count 243 10^3/uL 150-450 Mean Platelet Volume 10 um3 7.4-10.4 Abs Neutrophils 3.9 10^3/uL 1.5-7.7 Abs Lymphocytes 2.1 10^3/uL 1.0-4.8 Abs Monocytes 0.4 10^3/uL 0-0.8 Abs Eosinophils 0.2 10^3/uL 0-0.6 Abs Basophils 0.1 10^3/uL 0-0.2 Abs Nucleated RBC 0 10^3/uL Granulocyte % 58.6 % 38-83 Lymphocyte % 32.0 % 25-47 Monocyte % 5.6 % 1-9 Eosinophil % 2.8 % 0-6 Basophil % 1.0 % 0-2 Nucleated Red Blood Cells % 0 Laboratory test 10/16/2016 Hemoglobin A1c 7.9 % High Less than 6.0 28 finding (Glyco HGB) Iron & Iron Binding 10/16/2016 Iron 108 g/dL 50-212 Capacity Unsaturated Iron Binding 225 g/dL Total Iron Binding Capacity 333 g/dL 250-450 % Iron Saturation 32 % 15-55 Laboratory test 10/14/2009 Hemoglobin A1c 10.3 % High Less Than 29, 30 finding 6.0 Surgical Pathology 10/13/2009 Surgical Pathology 31 ---- <SEE NOTE> Laboratory test 10/10/2009 PTT (Aptt) 28.8 25.15-38.53 32, 33 finding Protime 10/10/2009 Inr 0.96 Low 0.97-1.03 32, 34 Protime 11.3 SEC Low 11.5-12.2 32, 35 CBC With Electronic Diff 10/10/2009 White Blood Count 8.7 CUMM 4.8-10.8 32 Red Cell Count 3.79 CUMM Low 4.2-5.4 32 Hemoglobin 12.6 g/dL 12.0-16.0 32 Hematocrit 37 % 35-47 32 Mean Corpuscular Volume 98 um3 High 79-97 32 Mean Corpuscular Hemoglob 33 pg High 27-31 32 Mean Corpuscular HGB Cone 34 g/dL 32-36 32 Redcell Distribution WDTH 13 % 10.5-15 32 Platelet Count 259 CUMM 150-450 32 Mean Platelet Volume 8.2 um3 7.4-10.4 32 Gran % 52.1 % 38-83 32 Lymph % 35.6 % 25-47 32 Mononuclear % 7.4 % 1-9 32 Eosinophil % 4.5 % 0-6 32 Basophil % 0.4 % 0-2 32 Abs Lymphs 3.1 1.0-4.8 32 Abs Mononuclear 0.6 0-0.8 32 Absolute Neutrophil Count 4.5 1.5-7.7 32 Abs Eosinophils 0.4 0-0.6 32 Abs Basophils 0 0-0.2 32 Type And Screen 10/10/2009 Patient Blood Type O POSITIVE 32 Antibody Screen NEGATIVE 32 Specimen Discard Date 10/24/09 32, 36 Basic Metabolic Panel 10/10/2009 Sodium 136 mmol/L 135-145 32 Potassium 4.7 mmol/L 3.5-5.0 32 Chloride 96 mmol/L Low 101-111 32 Co2 (Carbon Dioxide) 32.0 mmol/L 22-32 32 Anion Gap 8.0 mmol/L 2-11 32, 37 Glucose 263 mg/dL High 70-100 32, 38 BUN 24 mg/dL 6-24 32 Creatinine 1.00 mg/dL 0.50-1.40 32 One Over Creatinine 1.00 32 BUN/Creatinine Ratio 24.0 High 8-20 32 Calcium 9.5 mg/dL 8.1-9.9 32, 39 eGFR Non- 61.9 > 60 32 eGFR 74.9 > 60 32, 40 1 *Ascorbic acid is present which may interfere with detection of blood. 2 Because ethnic data is not always readily available, this report includes an eGFR for both -Americans and non- Americans. The National Kidney Disease Education Program (NKDEP) does not endorse the use of the MDRD equation for patients that are not between the ages of 18 and 70, are , have extremes of body size, muscle mass, or nutritional status, or are non- or non-. According to the National Kidney Foundation, irrespective of diagnosis, the stage of the disease is based on the level of kidney function: Stage Description GFR(mL/min/1.73 m(2)) 1 Kidney damage with normal or decreased GFR 90 2 Kidney damage with mild decrease in GFR 60-89 3 Moderate decrease in GFR 30-59 4 Severe decrease in GFR 15-29 5 Kidney failure <15 (or dialysis) 3 SEE RESULT BELOW Name: MELODY MCKEON : [address]: Latoya Hein MD Acct: [id number] Unit: [id number] AGE: 62 Location: PAT Re04/02/18 SEX: F Status: REG REF SPEC: [id number] LOY: 04/02/18-[address] [facility] [address]: Latoya Hein MD REQ: [id number] RECD: 04/02/18-8 STATUS: FRANCISCO RIOS DR: Abdoul Lynn MD _ SOURCE: URINE SPDESC: ORDERED: Urine Culture QUERIES: Urine Source: Random Procedure Result Reported Site Urine Culture Final 04/03/18- 1205 ML No growth of clinically significant organisms * ML - Main Lab . END OF REPORT DEPARTMENT OF PATHOLOGY, [address] [place] [address] Sarmad Clayton M.D. Director [facility] # [id number] 4 Lime Supervisor: [id number] Normal Range 180 to 914 Indeterminate Range 145 to 180 Deficient Range <145 6 Therapeutic target for the treatment of diabetes mellitus patients is <7% HBA1C, and in selective patients <6.0%. Please refer to [place] [employer] diabetic care guidelines for further information. 7 ADDITIONAL INFORMATION This test was developed and its performance characteristics determined by [facility] in a manner consistent with CLIA requirements. This test has not been cleared or approved by the U.S. Food and Drug Administration. Test Performed by: [place] [address] 8 ADDITIONAL INFORMATION This test was developed and its performance characteristics determined by [facility] in a manner consistent with CLIA requirements. This test has not been cleared or approved by the U.S. Food and Drug Administration. Test Performed by: [facility] - [address] [address] 9 ADDITIONAL INFORMATION This test was developed and its performance characteristics determined by [facility] in a manner consistent with CLIA requirements. This test has not been cleared or approved by the U.S. Food and Drug Administration. Test Performed by: [facility] [address] 10 Because ethnic data is not always readily available, this report includes an eGFR for both -Americans and non- Americans. The National Kidney Disease Education Program (NKDEP) does not endorse the use of the MDRD equation for patients that are not between the ages of 18 and 70, are , have extremes of body size, muscle mass, or nutritional status, or are non- or non-. According to the National Kidney Foundation, irrespective of diagnosis, the stage of the disease is based on the level of kidney function: Stage Description GFR(mL/min/1.73 m(2)) 1 Kidney damage with normal or decreased GFR 90 2 Kidney damage with mild decrease in GFR 60-89 3 Moderate decrease in GFR 30-59 4 Severe decrease in GFR 15-29 5 Kidney failure <15 (or dialysis) 11 Normal Range 180 to 914 Indeterminate Range 145 to 180 Deficient Range <145 12 ADDITIONAL INFORMATION This test was developed and its performance characteristics determined by [facility] in a manner consistent with CLIA requirements. This test has not been cleared or approved by the U.S. Food and Drug Administration. Test Performed by: [facility] - [address] [address] 13 ADDITIONAL INFORMATION This test was developed and its performance characteristics determined by [facility] in a manner consistent with CLIA requirements. This test has not been cleared or approved by the U.S. Food and Drug Administration. Test Performed by: [facility] - [address] [address] 14 Because ethnic data is not always readily available, this report includes an eGFR for both -Americans and non- Americans. The National Kidney Disease Education Program (NKDEP) does not endorse the use of the MDRD equation for patients that are not between the ages of 18 and 70, are , have extremes of body size, muscle mass, or nutritional status, or are non- or non-. According to the National Kidney Foundation, irrespective of diagnosis, the stage of the disease is based on the level of kidney function: Stage Description GFR(mL/min/1.73 m(2)) 1 Kidney damage with normal or decreased GFR 90 2 Kidney damage with mild decrease in GFR 60-89 3 Moderate decrease in GFR 30-59 4 Severe decrease in GFR 15-29 5 Kidney failure <15 (or dialysis) 15 AA 12/06 16 AA 12/06 17 *Ascorbic acid is present which may interfere with detection of blood. 18 SEE RESULT BELOW Name: MELODY MCKEON : [address]: Latoya Hein MD Acct: [id number] Unit: [id number] AGE: 61 Location: [facility] Re11/30/16 SEX: F Status: REG REF SPEC: [id number] LOY: 11/30/16-[address] [facility] [address]: Latoya Hein MD REQ: [id number] RECD: 11/30/16 STATUS: FRANCISCO RIOS DR: Abdoul Lynn MD _ SOURCE: URINE SPDESC: ORDERED: Urine Culture COMMENTS: 12/06 QUERIES: Urine Source: Clean Catch Procedure Result Reported Site Urine Culture Final 12/02/16- 800 ML Organism 1 ESCHERICHIA COLI Superior Count >100,000 (Many) CFU/ML 1. ESCHERICHIA COLI M.I.C. RX --------- ------ Ampicillin <=2 S Cefazolin <=4 S Cefepime <=1 S Ceftriaxone <=1 S Ciprofloxacin <=0.25 S Gentamicin <=1 S Levofloxacin <=0.12 S Meropenem <=0.25 S Nitrofurantoin <=16 S Tetracycline <=1 S Pipercillin/Tazobactam <=4 S Trimethoprim/Sulfamethoxazole <=20 S Amoxicillin/Clavulanic Acid <=2 S Aztreonam <=1 S Contact the Microbiology Department for any additional antibiotic reporting. * ML - MAIN LAB ([facility]) . END OF REPORT * ML=Testing performed at Main Lab DEPARTMENT OF PATHOLOGY, [address] [place] [address] Sarmad Clayton M.D. Director [facility] # [id number] 19 Therapeutic target for the treatment of diabetes Mellitus patients is <7% HBA1C, and in selective patients <6.0%.Please refer to [place] [employer] Diabetic care guidelines for further information. 20 Because ethnic data is not always readily available, this report includes an eGFR for both -Americans and non- Americans. The National Kidney Disease Education Program (NKDEP) does not endorse the use of the MDRD equation for patients that are not between the ages of 18 and 70, are , have extremes of body size, muscle mass, or nutritional status, or are non- or non-. According to the National Kidney Foundation, irrespective of diagnosis, the stage of the disease is based on the level of kidney function: Stage Description GFR(mL/min/1.73 m(2)) 1 Kidney damage with normal or decreased GFR 90 2 Kidney damage with mild decrease in GFR 60-89 3 Moderate decrease in GFR 30-59 4 Severe decrease in GFR 15-29 5 Kidney failure <15 (or dialysis) 21 FASTING 22 Normal Range 180 to 914 Indeterminate Range 145 to 180 Deficient Range <145 23 FASTING 24 FASTING 25 ADDITIONAL INFORMATION This test was developed and its performance characteristics determined by [facility] in a manner consistent with CLIA requirements. This test has not been cleared or approved by the U.S. Food and Drug Administration. Test Performed by: [facility] - [address] [address] 26 ADDITIONAL INFORMATION This test was developed and its performance characteristics determined by [facility] in a manner consistent with CLIA requirements. This test has not been cleared or approved by the U.S. Food and Drug Administration. Test Performed by: [facility] - [address] [address] 27 Because ethnic data is not always readily available, this report includes an eGFR for both -Americans and non- Americans. The National Kidney Disease Education Program (NKDEP) does not endorse the use of the MDRD equation for patients that are not between the ages of 18 and 70, are , have extremes of body size, muscle mass, or nutritional status, or are non- or non-. According to the National Kidney Foundation, irrespective of diagnosis, the stage of the disease is based on the level of kidney function: Stage Description GFR(mL/min/1.73 m(2)) 1 Kidney damage with normal or decreased GFR 90 2 Kidney damage with mild decrease in GFR 60-89 3 Moderate decrease in GFR 30-59 4 Severe decrease in GFR 15-29 5 Kidney failure <15 (or dialysis) 28 Therapeutic target for the treatment of diabetes Mellitus patients is <7% HBA1C, and in selective patients <6.0%.Please refer to [place] [employer] Diabetic care guidelines for further information. 29 COMMENTS: THANKS! 30 THERAPEUTIC TARGET FOR THE TREATMENT OF DIABETES MELLITUS PATIENTS IS <7% HBA1C, AND IN SELECTIVE PATIENTS <6.0%. PLEASE REFER TO [place] [employer]ATION DIABETIC CARE GUIDELINES FOR FURTHER INFORMATION. 31 ---- RUN DATE: 10/17/09 [facility] NMI LIVE PAGE 1 RUN TIME: 1503 Specimen Inquiry RUN USER: INTERFACE -- Name: [facility]KE[id number] Status: DIS IN Re10/13/09 Age/Sex: 54/F Unit#: [id number] [facility] [birth year] -- Specimen: [id number] Spec Date: 10/13/[address]: Dre Mitchell MD Spec Type: SURGICAL P Received: 10/14/09 Copies to: SPECIMEN DISC MATERIAL C7-T1 HISTORY PRE-OP DIAGNOSIS: Right C7-T1 disc herniation GROSS DESCRIPTION Specimen received in formalin labelled Melody Mckeon, Disc Material C-7, T-1 and consists of multiple fragments of dense fibrous tissue measuring in aggregate 2.5 x 1.5 x 1.0 cm. Coupler sections, one cassette. DIAGNOSIS Disc, C7-T1, discectomy: Fibrohyaline cartilage with marked regenerative changes. Signed Electronically by: PARISA REDDY 10/17/09 1503 -- -- DEPARTMENT OF PATHOLOGY, [address] [place] [address] [facility] Permit #[id number] Sarmad Clayton M.D. Director Parisa Reddy M.D. Unit Leader Dir rut -- 32 AA 10/13 33 PLEASE NOTE NEW REFERENCE RANGE EFFECTIVE 09. 34 Recommended INR for Patients on Oral Anticoagulants Prophylaxis 2.0 - 3.0 Treatment of thrombosis 2.0 - 3.0 Prevention of embolism 2.0 - 3.0 Prevention of embolism from prosthetic heart valves 2.5 - 3.5 35 DIAGNOSIS,TREATMENT,AND THERAPY MUST BE BASED ON THE INR VALUE ALONE. 36 PREADMISSION TESTING SAMPLES FOR BLOOD BANK WILL BE HELD FOR 14 DAYS FROM THE DATE OF COLLECTION *IF* THE FOLLOWING CRITERIA ARE MET: 1) THE PATIENT HAS *NOT* BEEN IN THE LAST 3 MONTHS. 2) THE PATIENT HAS *NOT* BEEN TRANSFUSED IN THE LAST 3 MONTHS. PREADMISSION TESTING SAMPLES WILL *NOT* BE HELD FOR 14 DAYS FROM PATIENTS WHO IN THE LAST 3 MONTHS: 1) HAVE BEEN 2) HAVE BEEN TRANSFUSED THESE PATIENTS *MUST* BE COLLECTED WITHIN 3 DAYS OF THE SURGERY DATE. 37 Anion gap measurement may be of limited value in the presence of any alkalosis, especially in a combined acid base disorder. . 38 Note change in reference range as of 03/18/08. The change was based on recommendations from the [place] [employer]. 39 Please note change in reference range effective 07 . 40 Because ethnic data is not always readily available, this report includes an eGFR for both -Americans and non- Americans. The National Kidney Disease Education Program (NKDEP) does not endorse the use of the MDRD equation for patients that are not between the ages of 18 and 70, are , have extremes of body size, muscle mass, or nutritional status, or are non- or non-. According to the National Kidney Foundation, irrespective of diagnosis, the stage of the disease is based on the level of kidney function: Stage Description GFR(mL/min/1.73 m(2)) 1 Kidney damage with normal or decreased GFR 90 2 Kidney damage with mild decrease in GFR 60-89 3 Moderate decrease in GFR 30-59 4 Severe decrease in GFR 15-29 5 Kidney failure <15 (or dialysis) Procedures Date CPT Code Description Status 12/09/2017 Inject/Drain Joint/Bursa Major W/O US Completed 05/20/2017 Inject/Drain Joint/Bursa Major W/O US Completed 12/06/2016 59482 TKR Total Knee Replacement Completed 12/06/2016 48479 TKR Total Knee Replacement Completed 09/10/2016 Inject/Drain Joint/Bursa Major W/O US Completed 05/04/2016 Inject/Drain Joint/Bursa Major W/O US Completed 03/20/2016 62762 ECHO Transthoracic, Real-Time 2D With Doppler And Color Completed Flow 03/16/2016 71297 Treadmill Interp/Report Only Completed 03/16/2016 11298 Stress Test Supervsn W/Out I/R Completed 03/01/2016 77466 EKG Tracing & Interpretation Completed 01/23/201603217 Inject/Drain Joint/Bursa Major W/O US Completed 06/27/2015 33755 Diffusing Capacity Completed 06/27/2015 99838 Plethysmography Determination Lung Volumes & Per Airway Completed Resist 06/27/2015 74951 Pulmonary Function><Bronchodil Completed 10/18/201433336 Inject/Drain Joint/Bursa Major W/O US Completed 06/01/2013 85152 Rad Exam; Foot Comp Completed 10/13/2009 97069 Discectomy,W/Decomp SP Cord/Nerve Root;Cervical Single Completed Interspace 10/13/2009 07161 Discectomy,W/Decomp SP Cord/Nerve Root;Cervical Single Completed Interspace Encounters Type Date Location Provider CPT E/M Dx Office Visit 03/05/2018 [facility] Latoya Hein M.D. 27181 M25.561 9:30a Of Vicente M25.461 M17.11 Office Visit 09/16/2017 8:19a [facility], Heather Negron N.P. 36752 K92.2 Hospitalists E11.9 I10 Z79.4 Office Visit 09/15/2017 8:18a [facility], Heather Negron N.P. 44025 K92.2 Hospitalists E11.9 I10 Z79.4 Office Visit 09/14/2017 8:16a [facility], Noellebird Slater, 80771 K92.2 Hospitalists D.O. E11.9 I10 Z79.4 Office Visit 07/30/2017 10:45a [place] [address] S93.622D [facility] Office Visit 07/09/2017 10:30[place] [address] S93.622A [facility] Office Visit 05/20/2017 9:30a [facility] Latoya Hein M.D. 97480 M25.561 [facility] 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, Romulo Vaca, 31182 E11.9 Hospitalists M.DMissy I10 F41.0 Z96.652 Office Visit 12/07/2016 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 27564 M25.562 [facility] M25.561 M25.462 M25.461 M17.0 Office Visit 10/25/2016 9:15a [facility] [place] [address] Z98.84 [facility] E11.9 Office Visit 07/26/2016 1:15p [facility] [place] [address] Z98.84 [facility] Office Visit 03/01/2016 9:40a [facility] Reymundo Eli, 86742 R06.00 MDexter R94.31 R01.1 I10 M25.562 M25.561 Z68.42 E66.09 Office Visit 01/23/2016 9:00a [facility] Latoya Hein M.D. 09584 M17.0 [facility] M25.562 M25.561 M25.461 M25.462 M79.645 M19.042 Office Visit 11/08/2014 8:00a [facility] Latoya Hein M.D. 02571 715.17 [facility] Office Visit 10/18/2014 8:45a [facility] Latoya Hein M.D. 67546 715.17 C.M.AMissy Office Visit 06/23/2013 8:00a [facility] Of Abiel Odom, 14696 715.17 C.MColby Baltazar Office Visit 06/01/2013 8:00a [facility] Abiel Odom, 11431 715.17 C.MColby Baltazar Office Visit 02/02/2010 9:00a [facility] Dre Hannon, 20020 722.0 Of Pinky Baltazar Office Visit 10/13/2009 3:00a [facility], Ja Celis, 20906 790.29 Hospitalists Delaney 250.00 Office Visit 09/30/2009 9:15a [facility] Of Dre Hannon, 70047 722.0 [facility] Delaney 722.0 Plan of Care Future Appointment(s):04/21/2018 2:15 pm - Latoya Hein M.D. at [facility]04/11/2018 7:30 am - JAZIEL Garcia at [facility]04/11/2018 7:30 am - [facility]2018 - Latoya Hien M.D.M25.561 Pain in right kneeFollow up:Follow up: 2 weeks after vdfdiwlJ43.461 Effusion, right kneeM17.11 Unilateral primary osteoarthritis, right knee
--- OUTSIDE RECORDS SUMMARY | 2018-04-11 06:02 | XMS REPORT ---
:1955 External Reference #:[id number] Author Organization [employer] Address [address] [place] [address] Phone [phone] Care Team Providers Name Role Phone Abdoul Lynn MD Primary Care Physician Unavailable Payers Type Date Identification Numbers Payment Provider Subscriber Commercial Effective: Policy Number: MAN Jill Mckeon 2015 [id number] PayID: [id number] [address] [address] [place] [address] Medigap Part B Effective: 2012 Policy Number: MAN Jill Mckeon [id number] Expires: 2014 PayID: [id number] [address] [address] [place] [address] Workers Compensation Onset: 2009 Policy Number: Cam Melody Mckeon [id number] PayID: [id number] [address] [address] [place] [address] Medigap Part B Effective: 2010 Policy Number: MAN Jill Mckeon [id number] Expires: 2012 PayID: [id number] [address] [address] [place] [address] Problems Date Description Provider Status Onset: 01/23/2016 Localized, primary osteoarthritis Latoya Hein M.D. Active Onset: 01/23/2016 Localized, primary osteoarthritis of the Latoya Heni M.D. 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 Cigarette Use Never Smoked Cigarettes ETOH Use Currently consumes alcohol one glass of wine a month Smoking Patient has never smoked Recreational Drug Use Denies Drug Use Daily Caffeine Consumes on average 2 cups of regular coffee per day Exercise Type/Frequency Exercises regularly walking, [employer] 3x/weekly Allergies, Adverse Reactions, Alerts Date [...] 1tabs per Dre Barr dosepack Riddhi, - [facility] M.DMissy 10/17 Aspirin 00 Hx Tablets 81mg [...] Test Date Test Result H/L Range Note Laboratory test finding 10/29/2017 Point of Care 163 mg/dL High 70-100 1 Glucose CBC Auto Diff 10/23/2017 White Blood Count [...] Egfr Non- 65.5 >60 Egfr 84.3 >60 2 Iron & Iron Binding Capacity 10/23/2017 Iron 73 g/dL 50-212 Unsaturated Iron Binding 271 g/dL Total Iron Binding Capacity 344 g/dL 250-450 Transferrin 246 mg/dL 203-362 % Iron Saturation 21 % 15-55 Laboratory test finding 10/23/2017 Ferritin 13.7 ng/mL 11-307 Vitamin B12 1012 pg/mL High 180-914 3 Folic Acid (Folate) > 20.00 ng/mL >3.99 Vitamin D Total 25(Oh) 38.3 ng/mL 20-50 Hemoglobin A1c (Glyco HGB) 5.7 % High 4.0-5.6 4 Vitamin B1 (Whole Blood) 131 nmol/L 70-180 5 Vitamin E Level 8.9 mg/L 5.5 - 17.0 6 PTH Related Peptide 0.5 pmol/L <2.0 7 Bariatric Panel Post Op 05/02/2017 Ferritin 11.3 ng/mL 11-307 Vitamin B12 957 pg/mL High 180-914 8 Folic Acid (Folate) > 20.00 ng/mL >3.99 Vitamin D Total 25(Oh) 47.7 ng/mL 20-50 Vitamin B1 (Whole Blood) 136 nmol/L 70-180 9 Vitamin E Level 10.8 mg/L 5.5 - 17.0 10 Comp Metabolic Panel 05/02/2017 Sodium 140 mmol/L [...] Egfr Non- 60.0 >60 Egfr 77.2 >60 11 CBC Auto Diff 05/02/2017 White Blood Count [...] 0-2 Nucleated Red Blood Cells % 0 Iron & Iron Binding Capacity 05/02/2017 Iron 117 g/dL 50-212 Unsaturated Iron Binding 282 g/dL Total Iron Binding Capacity 399 g/dL 250-450 % Iron Saturation 29 % 15-55 Comp Metabolic Panel 11/30/2016 Sodium 137 mmol/L 133-145 12 Potassium 3.7 mmol/L 3.5-5.0 12 Chloride 102 mmol/L 101-111 12 Co2 Carbon Dioxide 28 mmol/L 22-32 12 Anion Gap 7 mmol/L 2-11 12 Glucose 204 mg/dL High 70-100 12 Blood Urea Nitrogen 21 mg/dL 6-24 12 Creatinine 0.79 mg/dL 0.51-0.95 12 BUN/Creatinine Ratio 26.6 High 8-20 12 Calcium 8.7 mg/dL 8.6-10.3 12 Total Protein 6.3 g/dL Low 6.4-8.9 12 Albumin 3.3 g/dL 3.2-5.2 12 Globulin 3.0 g/dL 2-4 12 Albumin/Globulin Ratio 1.1 1-3 12 Total Bilirubin 0.50 mg/dL 0.2-1.0 12 Alkaline Phosphatase 119 U/L High 34-104 12 Alt 16 U/L 7-52 12 Ast 20 U/L 13-39 12 Egfr Non- 74.5 >60 12 Egfr 95.8 >60 12, 13 Inr/Protime 11/30/2016 Inr 0.98 0.89-1.11 12 Laboratory test finding 11/30/2016 Partial Thrombo 28.0 seconds 26.0- 36.3 12, 14 Time PTT CBC No Diff 11/30/2016 White Blood Count 7.9 10^3/uL 3.5-10.8 12 Red Blood Count 3.84 10^6/uL Low 4.0-5.4 12 Hemoglobin 12.2 g/dL 12.0-16.0 12 Hematocrit 37 % 35-47 12 Mean Corpuscular Volume 95 fL 80-97 12 Mean Corpuscular Hemoglobin 32 pg High 27-31 12 Mean Corpuscular HGB Conc 33 g/dL 31-36 12 Red Cell Distribution Width 14 % 10.5-15 12 Platelet Count 244 10^3/uL 150-450 12 Mean Platelet Volume 10 um3 7.4-10.4 12 Urinalysis Profile 11/30/2016 Urine Color Yellow 12 Urine Appearance Cloudy 12 Urine Specific [place] 1.014 1.010-1.030 12 Urine pH 5.0 5-9 12 Urine Urobilinogen Negative Negative 12 Urine Ketones Negative Negative 12 Urine Protein 2+(100 mg/dL) Negative 12 Urine Leukocytes Trace Negative 12 Urine Blood Negative Negative 12 * * Negative 12, 15 Urine Nitrite Negative Negative 12 Urine Bilirubin Negative Negative 12 Urine Glucose Negative Negative 12 Urine White Blood Cell 1+(6-10/hpf) Absent 12 Urine Red Blood Cell 2+(6-10/hpf) Absent 12 Urine Bacteria 2+ Absent 12 Urine Squamous Epithelial Cell Present Absent 12 Type & Screen 11/30/2016 Patient Blood Type O Positive 12 Antibody Screen NEGATIVE 12 Urine Culture And 11/30/2016 Urine Culture SEE RESULT 12, 16 Sensitivities BELOW Laboratory test 11/30/2016 Hemoglobin A1c 7.5 % High Less than 12, 17 finding (Glyco HGB) 6.0 Xray 11/05/2016 Knee 3 Views LT <pending> Laboratory test 10/16/2016 Hemoglobin A1c 7.9 % High Less than 18 finding (Glyco HGB) 6.0 Iron & Iron Binding 10/16/2016 Iron 108 g/dL 50-212 Capacity Unsaturated Iron Binding 225 g/dL Total Iron Binding Capacity 333 g/dL 250-450 % Iron Saturation 32 % 15-55 CBC Auto Diff 10/16/2016 White Blood Count [...] Blood Cells % 0 Comp Metabolic Panel 10/16/2016 Sodium 140 mmol/L [...] Egfr Non- 79.1 >60 Egfr 101.7 >60 19 Bariatric Panel Post Op 10/16/2016 Ferritin 20.0 ng/mL 11-307 20 Vitamin B12 454 pg/mL 180-914 21 Folic Acid (Folate) > 20.00 ng/mL >3.99 22 Vitamin D Total 25(Oh) 32.7 ng/mL 30-50 23 Vitamin B1 (Whole Blood) 148 nmol/L 70-180 24 Vitamin E Level 10.3 mg/L 5.5 - 17.0 25 Laboratory test 10/14/2009 Hemoglobin A1c 10.3 % High Less Than 26, 27 finding 6.0 Surgical Pathology 10/13/2009 Surgical Pathology 28 ---- <SEE NOTE> Laboratory test 10/10/2009 PTT (Aptt) 28.8 25.15-38.53 29, 30 finding Protime 10/10/2009 Inr 0.96 Low 0.97-1.03 29, 31 Protime 11.3 SEC Low 11.5-12.2 29, 32 CBC With Electronic Diff 10/10/2009 White Blood Count 8.7 CUMM 4.8-10.8 29 Red Cell Count 3.79 CUMM Low 4.2-5.4 29 Hemoglobin 12.6 g/dL 12.0-16.0 29 Hematocrit 37 % 35-47 29 Mean Corpuscular Volume 98 um3 High 79-97 29 Mean Corpuscular Hemoglob 33 pg High 27-31 29 Mean Corpuscular HGB Cone 34 g/dL 32-36 29 Redcell Distribution WDTH 13 % 10.5-15 29 Platelet Count 259 CUMM 150-450 29 Mean Platelet Volume 8.2 um3 7.4-10.4 29 Gran % 52.1 % 38-83 29 Lymph % 35.6 % 25-47 29 Mononuclear % 7.4 % 1-9 29 Eosinophil % 4.5 % 0-6 29 Basophil % 0.4 % 0-2 29 Abs Lymphs 3.1 1.0-4.8 29 Abs Mononuclear 0.6 0-0.8 29 Absolute Neutrophil Count 4.5 1.5-7.7 29 Abs Eosinophils 0.4 0-0.6 29 Abs Basophils 0 0-0.2 29 Type And Screen 10/10/2009 Patient Blood Type O POSITIVE 29 Antibody Screen NEGATIVE 29 Specimen Discard Date 10/24/09 29, 33 Basic Metabolic Panel 10/10/2009 Sodium 136 mmol/L 135-145 29 Potassium 4.7 mmol/L 3.5-5.0 29 Chloride 96 mmol/L Low 101-111 29 Co2 (Carbon Dioxide) 32.0 mmol/L 22-32 29 Anion Gap 8.0 mmol/L 2-11 29, 34 Glucose 263 mg/dL High 70-100 29, 35 BUN 24 mg/dL 6-24 29 Creatinine 1.00 mg/dL 0.50-1.40 29 One Over Creatinine 1.00 29 BUN/Creatinine Ratio 24.0 High 8-20 29 Calcium 9.5 mg/dL 8.1-9.9 29, 36 eGFR Non- 61.9 > 60 29 eGFR 74.9 > 60 29, 37 1 Camera Supervisor: [id number] 2 Because ethnic data is not always [...] 5 Kidney failure <15 (or dialysis) 3 Normal Range 180 to 914 Indeterminate Range 145 to 180 Deficient Range <145 4 Therapeutic target for the treatment of diabetes mellitus patients is <7% HBA1C, and in selective patients <6.0%. Please refer to [place] [employer] diabetic care guidelines for further information. 5 ADDITIONAL INFORMATION This test was developed and its performance characteristics determined by [facility] in a manner consistent with CLIA requirements. This test has not been cleared or approved by the U.S. Food and Drug Administration. Test Performed by: [facility] - [address] [address] 6 ADDITIONAL INFORMATION This test was developed and its performance characteristics determined by [facility] in a manner consistent with CLIA requirements. This test has not been cleared or approved by the U.S. Food and Drug Administration. Test Performed by: [facility] - [address] [address] 7 ADDITIONAL INFORMATION This test was developed and its performance characteristics determined by [facility] in a manner consistent with CLIA requirements. This test has not been cleared or approved by the U.S. Food and Drug Administration. Test Performed by: [facility] - [address] [address] 8 Normal Range 180 to 914 Indeterminate Range 145 to 180 Deficient Range <145 9 ADDITIONAL INFORMATION This test was developed and its performance characteristics determined by [facility] in a manner consistent with CLIA requirements. This test has not been cleared or approved by the U.S. Food and Drug Administration. Test Performed by: [facility] - [address] [address] 10 ADDITIONAL INFORMATION This test was developed and its performance characteristics determined by [facility] in a manner consistent with CLIA requirements. This test has not been cleared or approved by the U.S. Food and Drug Administration. Test Performed by: [facility] [place] [address] 11 Because ethnic data is not always readily [...] 15-29 5 Kidney failure <15 (or dialysis) 12 AA 12/06 13 Because ethnic data is not always readily [...] 15-29 5 Kidney failure <15 (or dialysis) 14 AA 12/06 15 *Ascorbic acid is present which may interfere with detection of blood. 16 SEE RESULT BELOW Name: MELODY MCKEON : [address]: Latoya Hein MD Acct: [id number] Unit: [id number] AGE: 61 Location: [facility] Re11/30/16 SEX: F Status: REG REF SPEC: [id number] LOY: 11/30/16-[address] [facility] [address]: Latoya Hein MD REQ: [id number] RECD: 11/30/164386 STATUS: FRANCISCO RIOS DR: Abdoul Lynn MD _ SOURCE: URINE [facility]: ORDERED: Urine Culture COMMENTS: MICAELA 12/06 QUERIES: Urine Source: Clean Catch Procedure Result Reported Site Urine Culture Final 12/02/16- 0801 ML Organism 1 ESCHERICHIA COLI [place] Count >100,000 (Many) CFU/ML 1. ESCHERICHIA COLI [...] antibiotic reporting. * ML - MAIN LAB (PSC1) . END OF REPORT * ML=Testing performed at Main Lab DEPARTMENT OF PATHOLOGY, [address] [place] [address] Sarmad Clayton M.D. Director [facility] # [id number] 17 Therapeutic target for the treatment of diabetes Mellitus patients is <7% HBA1C, and in selective patients <6.0%.Please refer to [place] [employer] Diabetic care guidelines for further information. 18 Therapeutic target for the treatment of diabetes Mellitus patients is <7% HBA1C, and in selective patients <6.0%.Please refer to [place] [employer] Diabetic care guidelines for further information. 19 Because ethnic data is not always readily [...] 15-29 5 Kidney failure <15 (or dialysis) 20 FASTING 21 Normal Range 180 to 914 Indeterminate Range 145 to 180 Deficient Range <145 22 FASTING 23 FASTING 24 ADDITIONAL INFORMATION This test was developed and its performance characteristics determined by [facility] in a manner consistent with CLIA requirements. This test has not been cleared or approved by the U.S. Food and Drug Administration. Test Performed by: [facility] - [address] [address] 25 ADDITIONAL INFORMATION This test was developed and its performance characteristics determined by [facility] in a manner consistent with CLIA requirements. This test has not been cleared or approved by the U.S. Food and Drug Administration. Test Performed by: [address] [address] 26 COMMENTS: THANKS! 27 THERAPEUTIC TARGET FOR THE TREATMENT OF DIABETES MELLITUS PATIENTS IS <7% HBA1C, AND IN SELECTIVE PATIENTS <6.0%. PLEASE REFER TO [place] [employer]ATION DIABETIC CARE GUIDELINES FOR FURTHER INFORMATION. 28 ---- RUN DATE: 10/17/09 [facility] NMI LIVE PAGE 1 RUN TIME: 1503 Specimen Inquiry RUN USER: INTERFACE -- Name: MELODY MCKEON [facility]#: [id number] Status: DIS IN Re10/13/09 Age/Sex: 54/F Unit#: [id number] Location: [facility] : [birth year] -- Specimen: [id number] Spec Date: 10/13/[address]: Dre Mitchell MD Spec Type: SURGICAL P Received: 10/14/097024 Copies to: SPECIMEN DISC MATERIAL C7-T1 HISTORY PRE-OP DIAGNOSIS: Right C7-T1 disc herniation GROSS DESCRIPTION Specimen received in formalin labelled Melody Mckeon, Disc Material C-7, T-1 and consists of multiple fragments of dense fibrous tissue measuring in aggregate 2.5 x 1.5 x 1.0 cm. Jumpbasting Collar Baster sections, one cassette. DIAGNOSIS Disc, C7-T1, discectomy: Fibrohyaline cartilage with marked regenerative changes. Signed Electronically by: PARISA REDDY 10/17/09 1503 -- -- DEPARTMENT OF PATHOLOGY, [address] [place] [address] [facility] Permit #[id number] Sarmad Clayton M.D. Director Parisa Reddy M.D. Tandem Mill Operator Dir rut -- 29 10/13 30 PLEASE NOTE NEW REFERENCE RANGE EFFECTIVE 09. 31 Recommended INR for Patients on Oral Anticoagulants Prophylaxis 2.0 - 3.0 Treatment of thrombosis 2.0 - 3.0 Prevention of embolism 2.0 - 3.0 Prevention of embolism from prosthetic heart valves 2.5 - 3.5 32 DIAGNOSIS,TREATMENT,AND THERAPY MUST BE BASED ON THE INR VALUE ALONE. 33 PREADMISSION TESTING SAMPLES FOR BLOOD BANK WILL [...] WITHIN 3 DAYS OF THE SURGERY DATE. 34 Anion gap measurement may be of limited value in the presence of any alkalosis, especially in a combined acid base disorder. . 35 Note change in reference range as of 03/18/08. The change was based on recommendations from the [place] [employer]. 36 Please note change in reference range effective 07 . 37 Because ethnic data is not always readily [...] Inject/Drain Joint/Bursa Major W/O US Completed 12/06/2016 18286 TKR Total Knee Replacement Completed 12/06/2016 22677 TKR Total Knee Replacement Completed 09/10/2016 Inject/Drain Joint/Bursa Major W/O US Completed 05/04/2016 Inject/Drain Joint/Bursa Major W/O US Completed 03/20/2016 60238 ECHO Transthoracic, Real-Time 2D With Doppler And Color Completed Flow 03/16/2016 12038 Treadmill Interp/Report Only Completed 03/16/2016 34110 Stress Test Supervsn W/Out I/R Completed 03/01/2016 70780 EKG Tracing & Interpretation Completed 01/23/201698567 Inject/Drain Joint/Bursa Major W/O US Completed 06/27/2015 61208 Diffusing Capacity Completed 06/27/2015 40258 Plethysmography Determination Lung Volumes & Per Airway Completed Resist 06/27/2015 03965 Pulmonary Function><Bronchodil Completed 10/18/201405297 Inject/Drain Joint/Bursa Major W/O US Completed 06/01/2013 73188 Rad Exam; Foot Comp Completed 10/13/2009 31708 Discectomy,W/Decomp SP Cord/Nerve Root;Cervical Single Completed Interspace 10/13/2009 73388 Discectomy,W/Decomp SP Cord/Nerve Root;Cervical Single Completed Interspace Encounters Type Date Location Provider CPT E/M Dx Office Visit 03/05/2018 [facility] Latoya Hein M.D. 49019 M25.561 9:30a Of Vicente M25.461 M17.11 Office Visit 09/16/2017 8:19a [facility] [place]. [address]148 K92.2 Hospitalists E11.9 I10 Z79.4 Office Visit 09/15/2017 8:18a [facility] [place] [address]70 K92.2 Hospitalists E11.9 I10 Z79.4 Office Visit 09/14/2017 8:16a [facility],[place], [address] K92.2 Hospitalists D.O. E11.9 I10 Z79.4 Office Visit 07/30/2017 10:45a [place] [address] S93.622D [facility] Office Visit 07/09/2017 10:30[place] [address] S93.622A [facility] Office Visit 05/20/2017 9:30a [facility] Latoya Hein M.D. 54362 M25.561 Of C.M.AMissy M25.461 M17.11 M25.562 Z96.652 Office Visit 04/25/2017 9:15a [facility] [place] [address] Z98.84 [facility] E11.9 Office Visit 01/24/2017 9:15a [facility] [place] [address] Z98.84 [facility] E11.9 Office Visit 12/08/2016 3:48p [facility],pc Romulo [place], [address] E11.9 Hospitalists Delaney I10 F41.0 Z96.652 Office Visit 12/07/2016 [facility] Nancy, [address] Z96.652 3:47p Assoc,pc [employer] Hospitalists N17.9 E11.9 I10 Office Visit 12/06/2016 [facility] KimberlyMike, [address] Z96.652 3:45p Assoc,pc [employer] Hospitalists E11.9 E66.9 I10 Office Visit 11/05/2016 9:45a [facility] Of Latoya Hein M.D. 12821 M25.562 Vicente M25.561 M25.462 M25.461 M17.0 Office Visit 10/25/2016 9:15a [facility] [place] [address] Z98.84 [facility] E11.9 Office Visit 07/26/2016 1:15p [facility] [place] [address] Z98.84 [facility] Office Visit 03/01/2016 9:40a [facility] Reymunod Eli, 55954 R06.00 Delaney R94.31 R01.1 I10 M25.562 M25.561 Z68.42 E66.09 Office Visit 01/23/2016 9:00a [facility] Of Latoya Hein M.D. 55135 M17.0 C.M.A. M25.562 M25.561 M25.461 M25.462 M79.645 M19.042 Office Visit 11/08/2014 8:00a [facility] Of Latoya Hein M.D. 26998 715.17 C.M.AMissy Office Visit 10/18/2014 8:45a [facility] Of Latoya Hein M.D. 77588 715.17 C.M.AMissy Office Visit 06/23/2013 8:00a [facility] Of Abiel Odom, 34589 715.17 C.MColby Baltazar Office Visit 06/01/2013 8:00a [facility] Of Abiel Odom, 68434 715.17 C.MColby Baltazar Office Visit 02/02/2010 9:00a [facility] Dre Hannon, [address]11[address] 722.0 Of Pinky Baltazar Office Visit 10/13/2009 3:00a [facility], Ja Mervatkaren, [address]383 790.29 Hospitalists Delaney 250.00 Office Visit 09/30/2009 9:15a [facility] Of Dre Hannon, 38263 722.0 Pinky Baltazar 722.0 Plan of Care Future Appointment(s):04/21/2018 2:15 pm - Latoya Hein M.D. at [facility]04/11/2018 7:30 am - JAZIEL Garcia at [facility]04/11/2018 7:30 am - Latoya Hein M.D. at [facility]04/02/2018 - Latoya Hein M.D.M25.561 Pain in right kneeFollow up:Follow up: 2 weeks after zaofknvV58.461 Effusion, right kneeM17.11 Unilateral primary osteoarthritis, right knee
[2018-04-11] MEDS ORDERED: ceFAZolin 2 GM in NS PREMIX(*) 2 GM/100 ML BAG IVPB ONE (06:07)
[2018-04-11] MEDS ORDERED: Midazolam* 1 MG/ML 2 ML VIAL (2 MG) ONE (06:46)
[2018-04-11] MEDS ORDERED: fentaNYL* 50 MCG/ML 2 ML VIAL (100 MCG VIAL) ONE ×2 (06:46→11:40)
[2018-04-11] MEDS ORDERED: ROPIVACAINE 5 MG/ML 30 ML BTL (0.5%) ONE ×2 (07:17→07:26)
[2018-04-11] MEDS ORDERED: Lidocaine 1%* 5 ML VIAL ONE (07:17)
[2018-04-11] MEDS ORDERED: diPHENhydraMINE IV* 50 MG/ML 1 ml VIAL (BENADRYL) ONE ×2 (07:58→11:02)
[2018-04-11] MEDS ORDERED: Bupivacaine-MPF SPINAL* 7.5 MG/ML - 2ML AMP ONE (07:58)
[2018-04-11] MEDS ORDERED: Propofol* 10 MG/ML 20 ML BTL IV PUSH ONE ×2 (08:15→09:25)
[2018-04-11] MEDS ORDERED: Lidocaine 2% PF * 5 ML VIAL ONE (08:15)
[2018-04-11] MEDS ORDERED: DiMENhydriNATE IV* 50 MG/ML VIAL IV PUSH PRN (08:24)
[2018-04-11] MEDS ORDERED: Morphine INJ* 2 MG/ML 1 ML SYRINGE (TWO MG - NEW SYRINGE VERSION) IV PRN ×2 (08:24→10:08)
[2018-04-11] MEDS ORDERED: HYDROcodone/ACETAMIN 5-325 MG* 1 TAB PO PRN (08:24)
[2018-04-11] MEDS ORDERED: diPHENhydraMINE IV* 50 MG/ML 1 ml VIAL (BENADRYL) IV PRN ×2 (08:24→10:08)
[2018-04-11] MEDS ORDERED: Ondansetron INJ* 2 MG/ML VIAL IV PRN ×2 (08:24→10:08)
[2018-04-11] MEDS ORDERED: Acetaminophen TAB* 325 MG PO PRN (08:24)
[2018-04-11] MEDS ORDERED: Naloxone* 0.4 MG/ML 1 ML VIAL IV PRN (08:24)
[2018-04-11] MEDS ORDERED: oxyCODONE/Acetamin 5/325 MG* TAB PO PRN (10:08)
[2018-04-11] MEDS ORDERED: Bisacodyl SUPP* 10 MG SUPP PR PRN (10:08)
[2018-04-11] MEDS ORDERED: Polyethylene Glycol 3350* 17 GM PACKET PO PRN (10:08)
[2018-04-11] MEDS ORDERED: Magnesium Hydroxide LIQ* 30 ML UDC PO PRN (10:08)
[2018-04-11] MEDS ORDERED: traMADol TAB* 50 MG PO PRN (10:08)
[2018-04-11] MEDS ORDERED: traZODone TAB* 50 MG TAB PO PRN (10:13)
[2018-04-11] MEDS ORDERED: Acetaminophen TAB* 325 MG ONE ×2 (11:03→14:25)
--- NOTE | 2018-04-11 11:04 | RAD ---
Indication: Right knee replacement. 2 views of the right knee demonstrates bipolar right knee arthroplasty in satisfactory position. IMPRESSION: Knee replacement in satisfactory position.
[2018-04-11] MEDS ORDERED: hydrALAZINE IV* 20 MG/ML VIAL ONE (11:21)
[2018-04-11] MEDS: fentaNYL* 50 MCG/ML 2 ML VIAL (100 MCG VIAL) IV PRN ×2 (11:42→11:52)
[2018-04-11] MEDS ORDERED: hydrALAZINE IV* 20 MG/ML VIAL IV SLOW PU ONE (12:11)
[2018-04-11] MEDS ORDERED: Morphine INJ* 2 MG/ML 1 ML SYRINGE (TWO MG - NEW SYRINGE VERSION) ONE (12:35)
[2018-04-11] MEDS ORDERED: Scopolamine 1.5 mg* PATCH TRANSDERM SCH (13:00)
[2018-04-11] MEDS ORDERED: Scopolamine PATCH Remove* 1 NOTE MISC PATCH OFF SCH (13:00)
[2018-04-11] MEDS ORDERED: traMADol TAB* 50 MG ONE (14:25)
[2018-04-11] MEDS: Acetaminophen TAB* 325 MG PO SCH ×2 (14:34→21:19)
[2018-04-11] MEDS: ceFAZolin 1 GM in Dextrose (*) 1 GM/50 ML BAG IVPB SCH ×2 (14:34→22:57)
[2018-04-11] MEDS ORDERED: Dextrose 50% Syringe 50 ML* 25 GM/50 ML SYRINGE IV PUSH PRN (14:38)
[2018-04-11] MEDS: Cyclobenzaprine TAB* 10 MG PO PRN ×2 (14:38→21:20)
--- NOTE | 2018-04-11 15:45 | PN ---
Progress Note - Progress Note Date of Service: 04/11/18 Note: resting comfortably. pain well controlled. incision c/d/i; able to dorsi flex/ plantar flex, 2+ DP pulse, intact sensation
[2018-04-11] MEDS ORDERED: Warfarin TAB(*) 6 MG PO ONE (17:00)
[2018-04-11] MEDS: oxyCODONE TAB* 5 MG TAB PO PRN ×2 (17:59→22:56)
[2018-04-11] MEDS: Insulin LISPRO* 1 UNITS UNIT SUBCUT SCH ×2 (18:00→21:34)
[2018-04-11] MEDS: Magnesium Hydroxide LIQ* 30 ML UDC PO SCH (21:18)
[2018-04-11] MEDS: Docusate CAP* 100 MG PO SCH (21:20)
--- NOTE | 2018-04-11 22:19 | CONS ---
CC: Dr. Lynn * CONSULTATION REPORT: DATE OF CONSULT: 04/11/18 PROVIDER: aMrisela Claudio NP ATTENDING PHYSICIAN: Dr. Yo (report dictated by Marisela Claudio NP). PRIMARY CARE PROVIDER: Dr. Lynn. REFERRING PHYSICIAN: Dr. Hein. REASON FOR CONSULT: Co-medical management, status post right total knee arthroplasty. HISTORY OF PRESENT ILLNESS: Ms. Moss is a 62-year-old female with a past medical history of hypertension, type 2 diabetes, history of TIA, and osteoarthritis who underwent an elective right total knee arthroplasty with Dr. Hein today. The patient was seen and evaluated in the Postanesthesia Care Unit where she was found to be alert and oriented x3, in no acute distress. The patient reports she is having some right knee pain 4/10. Otherwise, she states that she feels well. She denies nausea, vomiting, abdominal pain. No shortness of breath or chest pain. The patient reports that her diabetes is well controlled. PAST MEDICAL HISTORY: 1. Type 2 diabetes, insulin-dependent. 2. Hypertension. 3. History of TIA. 4. Vitamin B12 deficiency. 5. Vitamin D deficiency. 6. Depression. 7. Migraines. 8. Panic disorder. 9. PFO. 10. Osteoarthritis. PAST SURGICAL HISTORY: 1. Left total knee replacement. 2. Anterior cervical diskectomy. 3. Right knee meniscus repair. 4. Gastric bypass. 5. Status post cholecystectomy. 6. ORIF of the left ankle. 7. Hysterectomy. MEDICATIONS: Home medications: 1. Trazodone 25 mg p.o. q.p.m. p.r.n. 2. Multivitamin pediatric 2 tabs p.o. q.a.m. 3. Paxil 40 mg p.o. q.a.m. 4. Lisinopril 20 mg p.o. q.a.m. 5. Ferrous sulfate 325 mg p.o. q.a.m. 6. Insulin NPH 15 to 25 units subcu a.m. 7. Vitamin B12 of 500 mcg p.o. q.a.m. 8. Vitamin D of 1000 units p.o. daily. Active medications reviewed and appreciated. ALLERGIES: BACITRACIN causes swelling; HYDROCORTISONE, nausea, vomiting; OXYCODONE, nausea and vomiting; POLYMYXIN B, swelling; TETRACYCLINES, rash; ADHESIVE TAPE, rash and itching. FAMILY HISTORY: The patient's mother has a history of hypertension, rheumatoid arthritis, and diabetes. Her dad at the age of 49 from liver failure from hepatitis C infection and blood transfusion. SOCIAL HISTORY: The patient reports she is a lifelong smoker since her teens. Denies alcohol or recreational drug use. She is retired from [employer]. She lives with her mother and who she cares for. She lists her daughter, Robina Culp, as her healthcare proxy. REVIEW OF SYSTEMS: A 14-point review of systems was performed. All the pertinent positives and negatives are mentioned in the history of present illness. Otherwise are negative. PHYSICAL EXAM: Vital Signs: Temperature 97.5, heart rate 54, respirations 16, O2 sat 100% on room air, blood pressure 132/58. General Appearance: A well- developed 62-year-old female, lying on the PACU bed, alert and oriented x3, in no acute distress. HEENT: Head is normocephalic and atraumatic. Pupils are equal and round. Oropharynx is clear. Dry mucous membranes. Cardiac: S1, S2. Regular rate and rhythm. No murmurs, rubs, or gallops appreciated. No lower extremity edema noted. No JVD noted. Lungs: Clear to auscultation bilaterally with good aeration throughout. Abdomen is soft, nontender, nondistended. Normal bowel sounds throughout. Musculoskeletal: No clubbing, cyanosis, or edema. Right knee is wrapped in a dressing with Sebastián bandage with a Cryo unit intact. She has good sensation to lower extremities bilaterally, 2 + DP pulses bilaterally. Neuro: Alert and oriented x3. No focal deficits noted. ASSESSMENT AND PLAN: Ms. Moss is a 62-year-old female with a past medical history as stated above, who underwent an elective right knee total arthroplasty by Dr. Hein. Hospital Medicine was asked to consult for co- medical management. 1. Status post right knee total arthroplasty. Postop day 0. Disposition per Dr. Hein's orthopedic team. Pain management. Bowel regimen. PT/OT. 2. Insulin-dependent type 2 diabetes. We will start fingerstick blood glucose monitoring a.c. and h.s. with a lispro sliding scale. It is noted the patient' s last hemoglobin A1c was in September of this year, which was 5.7. 3. Hypertension. Stable and well controlled at this time with systolic blood pressures in the 130s. We will continue lisinopril 10 mg p.o. daily. 4. Depression/anxiety with history of panic attacks. Continue Paxil 20 mg p.o. daily. 5. DVT prophylaxis: Lovenox q.24 hours with initiation of Coumadin per orthopedic team. 6. Code status: Full code. TIME SPENT: Approximately 60 minutes was spent on this consult. Hospital Medicine will continue to follow along. MARISELA CLAUDIO, ROXANNE [id number]/CPS #: [id number] VAL
[2018-04-11] MEDS: Ondansetron TAB* 4 MG PO PRN (22:56)
[2018-04-12] MEDS: oxyCODONE/Acetamin 5/325 MG* TAB PO PRN ×4 (02:33→18:58)
[2018-04-12] MEDS: oxyCODONE TAB* 5 MG TAB PO PRN ×3 (03:40→15:36)
[2018-04-12 05:59] LABS: Hematocrit 31 % (35-47); Hemoglobin 10.7 g/dl (12.0-16.0); Mean Corpuscular HGB Conc 34 g/dl (31-36); Mean Corpuscular Hemoglobin 33 pg (27-31); Mean Corpuscular Volume 98 fL (80-97); Mean Platelet Volume 8.1 um3 (7.4-10.4); Platelet Count 203 10^3/ul (150-450); Red Blood Count 3.21 10^6/ul (4.00-5.40); Red Cell Distribution Width 13 % (10.5-15); White Blood Count 9.4 10^3/ul (3.5-10.8)
[2018-04-12 06:16] LABS: EGFR Non-African American 64.7 (>60); INR 1.21 (0.77-1.02)
[2018-04-12] MEDS: ceFAZolin 1 GM in Dextrose (*) 1 GM/50 ML BAG IVPB SCH (06:23)
[2018-04-12 06:31] LABS: ABS Basophils 0 10^3/ul (0-0.2); ABS Neutrophils 7.8 10^3/ul (1.5-7.7); Monocytes % 1 % (0-7)
[2018-04-12] MEDS: Ondansetron TAB* 4 MG PO PRN (06:52)
[2018-04-12] MEDS: Acetaminophen TAB* 325 MG PO SCH ×3 (07:12→21:42)
[2018-04-12] MEDS ORDERED: Pneumococcal *Vac Polyvalent 0.5 ML VIAL IM ONE (09:00)
--- NOTE | 2018-04-12 09:22 | PN ---
Progress Note - Progress Note Date of Service: 04/12/18 SOAP: Subjective: [Pt was seen this morning sitting up in chair eating breakfast. She states that she is having pain 02/04 today. She denies any chest pain, SOB, nausea or vomiting. ] Objective: [General: A&Ox3, NAD MSK, RLE: Dressing is c/d/i without surrounding erythema. Pts calf is soft and non tender. +df/pf. NVI with a 2+ DP pulse. ] Vital Signs Temp 97.8 F 04/12/18 08:07 Pulse 82 04/12/18 08:07 Resp 16 04/12/18 08:07 BP 146/73 04/12/18 08:07 Pulse Ox 91 04/12/18 08:07 Intake & Output 04/11/18 04/12/18 04/12/18 18:59 06:59 18:59 Intake Total 1670 2018 350 Output Total 525 525 Balance 1145 1493 350 Intake: IV Fluids 1450 1029 1GM TRANEXAMIC ACID 100 ABX - CEFAZOLIN 54 LR 1350 975 IVPB 54 ABX - CEFAZOLIN 54 Oral 220 935 350 Output: Law 525 525 Other: # Bowel Movements 0 Estimated Blood Loss 100 Comment Assessment: [POD 1 RTKA ] Plan: [-Finish post op abx - PT/OT - INR of 1.07 - lovenox today, warfarin 8mg tonight - Pain medication as needed. ]
[2018-04-12] MEDS: Insulin LISPRO* 1 UNITS UNIT SUBCUT SCH ×4 (09:38→21:43)
[2018-04-12] MEDS: Ferrous Sulfate TAB* 325 MG PO SCH (09:40)
[2018-04-12] MEDS: Magnesium Hydroxide LIQ* 30 ML UDC PO SCH ×2 (09:40→21:42)
[2018-04-12] MEDS: Docusate CAP* 100 MG PO SCH ×2 (09:40→21:43)
[2018-04-12] MEDS: Lisinopril TAB* 10 MG PO SCH (09:40)
[2018-04-12] MEDS: PARoxetine HCL TAB* 40 MG PO SCH (09:40)
[2018-04-12] MEDS: Enoxaparin(*) 30 MG/0.3 ML SYR SUBCUT SCH (11:52)
--- NOTE | 2018-04-12 14:36 | OP ---
DATE OF OPERATION: 04/11/18 - ROOM #343 DATE OF : 59 SURGEON: Latoya Hein MD. SLIVER FORMER: JAZIEL Pretty. Ms. Hercules did help throughout the procedure with preparation of the leg, wound retraction, manipulation of the knee, and wound closure. ANESTHESIOLOGIST: Dr. Pinto. ANESTHESIA: Spinal. PRE-OP DIAGNOSIS: Severe end-stage degenerative osteoarthritis of the right knee joint. POST-OP DIAGNOSIS: Severe end-stage degenerative osteoarthritis of the right knee joint. OPERATIVE PROCEDURE: Right total knee arthroplasty. TOURNIQUET TIME: 43 minutes. COMPLICATIONS: None. SPECIMEN: Bone and cartilage from the right knee joint sent to pathology. ESTIMATED BLOOD LOSS: 250 cc. HARDWARE USED: This is [employer] cemented total knee arthroplasty hardware. Two packages of Simplex bone cement. For the femur, a right narrow size 4 Oxinium Legion posterior stabilized femoral component. For the tibia, a size 3 Mary II right tibial baseplate. For the insert, an 11-mm posterior stabilized articular insert size 3-4. And for the patella, a size 32-mm 3-peg all poly patella. BRIEF HISTORY/INDICATIONS: Ms. Moss is a 62-year-old female with years of increasingly severe right knee pain. Radiographs showed [id number] arthritis. She failed conservative treatment with antiinflammatories, pain medications, intraarticular injections, and physical therapy. Due to continued pain and decreased quality of life, she elected to undergo right total knee arthroplasty. Informed consent was obtained from the patient. She understood the risks of surgery included but were not limited to, bleeding, infection, damage to nearby structures, continued pain, need for further surgery, intraoperative fracture, nerve palsy, hardware failure or loosening, knee stiffness, loss of motion, stroke, heart attack, blood clot, and . She wished to proceed. INTRAOPERATIVE FINDINGS: Intraoperatively, the patient was noted to have severe end-stage arthritis with complete loss of cartilage in the patellofemoral and medial compartments. She had extensive osteophyte formation. DESCRIPTION OF PROCEDURE: Ms. Moss was identified in the preanesthesia unit. Her right lower extremity was marked as the correct operative side. Informed consent was signed and placed in the chart. The patient was taken to the operating room and placed under spinal anesthesia. A Law catheter was placed. Tourniquet was placed on the right thigh. Right lower extremity was prepped and draped in the usual sterile fashion. Preop time-out was made to correctly identify the patient's side and site. Appropriate perioperative antibiotics were given within 1 hour of incision. Tourniquet was inflated and total tourniquet time for this procedure was 43 minutes. A 10 cm midline incision was made with a 10 blade and carried down to the extensor mechanism. A new 10 blade was used to make a standard medial parapatellar arthrotomy. The patella was subluxed laterally. Electrocautery was used to elevate soft tissue off the superomedial tibia to the mid sagittal plane. Any osteophytes were removed from along the medial tibial plateau. The knee was flexed up. The anterior horn of the lateral meniscus and ACL were sharply removed. A drill was used to enter the distal femur. Intramedullary distal femoral cutting guide was pinned on the distal femur. Oscillating saw was used to make the distal femoral cut. Next, the external rotation guide was pinned on the distal femur. The distal femur was sized to a size 4. Size 4 multi-cutting jig was pinned on the distal femur. Oscillating saw was used to make the appropriate 4 chamfer cuts. The PCL was completely released. The tibia was subluxed anteriorly. Extramedullary tibial cutting guide was pinned on the proximal tibia. Oscillating saw was used to make the proximal tibial cut perpendicular to the mechanical axis of the tibia. The bone was carefully removed. The knee was brought out into full extension and the spacer block had good fit. There was good medial and lateral ligamentous balancing. Flexion and extension gaps were well balanced. Lamina water quality assistant was placed both medially and laterally. Any remaining meniscus was sharply removed using electro-cautery. Curved osteotome was used to remove any posterior osteophytes. Tibial tray and drop ketty was placed, and once again confirmed a satisfactory tibial cut. A size 4 narrow right femoral trial was impacted onto the distal femur and it had excellent fit. The box for the posterior stabilized implant was prepared using a reamer and box cut osteotome. Size 3 tibial tray trial with an 11 mm insert trial was placed. The knee was taken through a range of motion. The knee had full extension to 130 degrees of flexion with satisfactory patellofemoral tracking. The patella was everted. 9 mm of patellar bone and cartilage were carefully removed using an oscillating saw. In the patella 3 peg holes were drilled through the size 32 guide. A 32 trial patella was placed , and the knee was taken through a range of motion. There was satisfactory patellofemoral tracking. All trials were carefully removed. The tibia was subluxed anteriorly and sized to a size 3. Proximal tibia was prepared using a size 3 keel punch. All bony cut surfaces were copiously irrigated with sterile saline and dried. Final implants were cemented into place starting with the tibia, followed by the femur , and last the patella. An 11 mm insert trial was placed, and the knee was brought out into full extension. Tourniquet was turned down at 43 minutes. Electrocautery was used to obtain meticulous hemostasis. The knee was copiously irrigated with sterile saline. Once the cement had fully cured, the insert trial was removed. Any excess cement was removed from around the capsule and hardware. Final insert chosen was an 11 mm posterior stabilized articular insert size 3-4. This was locked into position on the tibial tray. The stability of the insert was checked and rechecked, and noted to be stable. The knee was copiously irrigated with sterile saline. The extensor mechanism was closed using interrupted #1 Vicryls. The rest of the incision was closed in a layered fashion using 0 and 2-0 Vicryls. Skin was closed using running 3- 0 nylon suture. Sterile Xeroform, 4x4's, and Webril were used to cover the incision. Sebastián wrap and cold pack were placed over this. The patient's anesthesia was reversed without difficulty. She was taken to the PACU in stable condition. Intended weightbearing will be weightbearing as tolerated. Intended DVT prophylaxis will be Coumadin with a Lovenox bridge. [id number]/[facility] #: [id number] VAL
[2018-04-12] MEDS ORDERED: Warfarin TAB(*) 4 MG PO ONE (17:00)
--- NOTE | 2018-04-12 17:23 | PN ---
Subjective Date of Service: 04/12/18 Interval History: C/o of right knee pain. Denies chest pain or shortness of breath. Denies abd pain n/v/d. Family History: Unchanged from Admission Social History: Unchanged from Admission Past Medical History: Unchanged from Admission Objective Active Medications: Acetaminophen (Tylenol Tab*) 975 mg PO Q8H ON LICENSE OF [facility] Last Admin: 04/12/18 13:17 Dose: Not Given Bisacodyl (Dulcolax Supp*) 10 mg OH DAILY PRN PRN Reason: constipation Cyclobenzaprine HCl (Flexeril Tab*) 10 mg PO TID PRN PRN Reason: SPASMS Last Admin: 04/11/18 21:20 Dose: 10 mg Dextrose (D50w Syringe 50 Ml*) 12.5 gm IV PUSH .FOR FS < 60 - SS PRN PRN Reason: FS < 60 Diphenhydramine HCl (Benadryl Iv*) 12.5 mg IV Q6H PRN PRN Reason: PRURITIS Last Admin: 04/11/18 19:44 Dose: 12.5 mg Docusate Sodium (Colace Cap*) 100 mg PO BID ON LICENSE OF [facility] Last Admin: 04/12/18 09:40 Dose: 100 mg Enoxaparin Sodium (Lovenox(*)) 30 mg SUBCUT Q24H ON LICENSE OF [facility] Last Admin: 04/12/18 11:52 Dose: 30 mg Ferrous Sulfate (Ferrous Sulfate Tab*) 325 mg PO QAM ON LICENSE OF [facility] Last Admin: 04/12/18 09:40 Dose: 325 mg Lactated Ringer's (Lactated Ringers 1000 Ml Bag*) 1,000 mls @ 100 mls/hr IV PER RATE ON LICENSE OF [facility] Last Admin: 04/12/18 02:27 Dose: 100 mls/hr Insulin Human Lispro (Humalog*) 0 units SUBCUT ACHS ON LICENSE OF [facility]; Protocol Last Admin: 04/12/18 11:58 Dose: 9 units Lactulose (Lactulose*) 30 ml PO Q6H PRN PRN Reason: constipation Lisinopril (Prinivil Tab*) 20 mg PO QAM ON LICENSE OF [facility] Last Admin: 04/12/18 09:40 Dose: 20 mg Magnesium Hydroxide (Milk Of Magnesia Liq*) 30 ml PO BID ON LICENSE OF [facility] Last Admin: 04/12/18 09:40 Dose: 30 ml Magnesium Hydroxide (Milk Of Magnesia Liq*) 30 ml PO Q6H PRN PRN Reason: constipation Morphine Sulfate (Morphine Inj ((Syringe))*) 2 mg IV Q2H PRN PRN Reason: PAIN - SEVERE Last Admin: 04/12/18 02:35 Dose: 2 mg Ondansetron HCl (Zofran Inj*) 4 mg IV Q6H PRN PRN Reason: nausea Last Admin: 04/11/18 16:21 Dose: 4 mg Ondansetron HCl (Zofran Tab*) 4 mg PO Q6H PRN PRN Reason: NAUSEA Last Admin: 04/12/18 06:52 Dose: 4 mg Oxycodone HCl (Roxycodone Tab*) 10 mg PO Q4H PRN PRN Reason: SEVERE PAIN Last Admin: 04/12/18 15:36 Dose: 10 mg Oxycodone/Acetaminophen (Percocet 5/325 Tab*) 1 tab PO Q4H PRN PRN Reason: PAIN Last Admin: 04/11/18 16:45 Dose: 1 tab Oxycodone/Acetaminophen (Percocet 5/325 Tab*) 2 tab PO Q4H PRN PRN Reason: PAIN Last Admin: 04/12/18 13:24 Dose: 2 tab Paroxetine HCl (Paxil Tab*) 40 mg PO QAM TANYA Last Admin: 04/12/18 09:40 Dose: 40 mg Pharmacy Profile Note (Scopolamine Patch Remove*) 1 note PATCH OFF .AFTER 72 HOURS TANYA Stop: 04/14/18 12:59 Polyethylene Glycol/Electrolytes (Miralax*) 17 gm PO DAILY PRN PRN Reason: Constipation Tramadol HCl (Ultram*) 50 mg PO Q6H PRN PRN Reason: PAIN Last Admin: 04/11/18 14:33 Dose: 50 mg Trazodone HCl (Desyrel Tab*) 25 mg PO QPM PRN PRN Reason: SLEEP Last Admin: 04/11/18 21:21 Dose: 25 mg Vital Signs - 8 hr 04/12/18 04/12/18 04/12/18 09:38 10:31 11:48 Temperature 98.9 F Pulse Rate 80 Respiratory 18 20 16 Rate Blood Pressure 132/69 (mmHg) O2 Sat by Pulse 92 Oximetry 04/12/18 04/12/18 04/12/18 13:24 13:25 15:23 Temperature 98.2 F Pulse Rate Respiratory 18 18 Rate Blood Pressure (mmHg) O2 Sat by Pulse Oximetry 04/12/18 04/12/18 04/12/18 15:24 15:35 15:36 Temperature 97.8 F Pulse Rate 87 Respiratory 16 16 18 Rate Blood Pressure 151/76 (mmHg) O2 Sat by Pulse 92 Oximetry 04/12/18 16:00 Temperature Pulse Rate Respiratory Rate Blood Pressure (mmHg) O2 Sat by Pulse 92 Oximetry Oxygen Devices in Use Now: None Appearance: appears comfortable sittingin the chair. no acute distress Eyes: No Scleral Icterus Ears/Nose/Mouth/Throat: Clear Oropharnyx, Mucous Membranes Moist Neck: NL Appearance and Movements; NL JVP, Trachea Midline Respiratory: Symmetrical Chest Expansion and Respiratory Effort, Clear to Auscultation Cardiovascular: NL Sounds; No Murmurs; No JVD Abdominal: NL Sounds; No Tenderness; No Distention Extremities: No Clubbing, Cyanosis, - - right knee with dressing dry and intact , pedal pulses + 2 bilat Neurological: Alert and Oriented x 3 Nutrition: Taking PO's Result Diagrams: 04/12/18 05:36 04/12/18 05:36 Assess/Plan/Problems-Billing Assessment: Ms. Moss is a 62 y.o female who presented to [facility] for an elective Right TKA. She carries a PMHX significant for DM and HTN. - Patient Problems (1) Status post total right knee replacement Current Visit: Yes Status: Acute Code(s): Z96.651 - PRESENCE OF RIGHT ARTIFICIAL KNEE JOINT SNOMED Code(s): 8963960743192 Comment: management per orthopedics PT/OT per Ortho (2) Diabetes Current Visit: No Status: Chronic Code(s): E11.9 - TYPE 2 DIABETES MELLITUS WITHOUT COMPLICATIONS SNOMED Code(s): 63554604 Comment: - BGs 200's today - continue lispro sliding scale (3) HTN (hypertension) Current Visit: No Status: Chronic Code(s): I10 - ESSENTIAL (PRIMARY) HYPERTENSION SNOMED Code(s): 01411681 Comment: - SBP 130-150s. - continue lisinopril (4) DVT prophylaxis Current Visit: No Status: Acute Code(s): DUN4782 - SNOMED Code(s): 939904588 Comment: per Ortho (5) Full code status Current Visit: No Status: Acute Code(s): Z78.9 - OTHER SPECIFIED HEALTH STATUS SNOMED Code(s): 690189305 Comment: Status and Disposition: inpatient discharge when medically stable
[2018-04-13] MEDS: oxyCODONE TAB* 5 MG TAB PO PRN (03:54)
[2018-04-13 06:01] LABS: Hematocrit 28 % (35-47); Hemoglobin 9.5 g/dl (12.0-16.0); Mean Platelet Volume 8.6 um3 (7.4-10.4); Platelet Count 183 10^3/ul (150-450)
[2018-04-13 06:06] LABS: INR 3.08 (0.77-1.02)
[2018-04-13] MEDS: Acetaminophen TAB* 325 MG PO SCH (06:19)
[2018-04-13] MEDS: Insulin LISPRO* 1 UNITS UNIT SUBCUT SCH ×2 (08:31→11:43)
[2018-04-13] MEDS: Docusate CAP* 100 MG PO SCH (08:33)
[2018-04-13] MEDS: Lisinopril TAB* 10 MG PO SCH (08:33)
[2018-04-13] MEDS: Ferrous Sulfate TAB* 325 MG PO SCH (08:33)
[2018-04-13] MEDS: PARoxetine HCL TAB* 40 MG PO SCH (08:33)
[2018-04-13] MEDS: oxyCODONE/Acetamin 5/325 MG* TAB PO PRN (08:33)
[2018-04-13] MEDS: Magnesium Hydroxide LIQ* 30 ML UDC PO SCH (08:35)
--- NOTE | 2018-04-13 09:25 | PN ---
Progress Note - Progress Note Date of Service: 04/13/18 SOAP: Subjective: [Pt was seen this morning sitting up in chair. She states that she is improved and manageable. She feels she is ready to go home. She denies any chest pain, SOB, nausea or vomiting. ] Objective: [General: A&Ox3, NAD MSK, RLE: Dressing changed today, incision is c/d/i without surrounding erythema , purulence or drainage. Pts calf is soft and non tender. +df/pf. NVI with a 2+ DP pulse. ] Vital Signs Temp 98.4 F 04/13/18 07:34 Pulse 75 04/13/18 07:34 Resp 18 04/13/18 08:33 BP 157/68 04/13/18 07:34 Pulse Ox 97 04/13/18 07:34 Intake & Output 04/12/18 04/13/18 04/13/18 18:59 06:59 18:59 Intake Total 1597 600 230 Output Total 600 350 250 Balance 997 250 -20 Intake: IV Fluids 747 ABX - CEFAZOLIN 55 LR 692 Oral 850 600 230 Output: Urine 600 350 250 Other: # Bowel Movements 0 # Voids 0 Assessment: [POD 2 RTKA ] Plan: - PT/OT - INR of 3.08 - lovenox today, warfarin: hold tonight - Pain medication as needed. - DC today after PT ]
[2018-04-13] MEDS: Enoxaparin(*) 30 MG/0.3 ML SYR SUBCUT SCH (11:41)
[2018-04-13 12:00] VITALS: BP 149/69
--- NOTE | 2018-04-15 02:55 | DS ---
DISCHARGE SUMMARY: DATE OF ADMISSION: 04/11/18 DATE OF DISCHARGE: 04/13/18 PROVIDER: Dr. Latoya Hein.* (DICTATED BY JAIZEL FLEMING) CONSULTATIONS: PT, OT, and hospitalist medicine. PROCEDURE: Right total knee arthroplasty. HISTORY OF PRESENT ILLNESS: Ms. Moss is a 62-year-old female with complaints of right knee pain. She has failed conservative treatment and elected to proceed with a right total knee arthroplasty. The patient was admitted to [facility] on 04/11/18 and underwent a right total knee arthroplasty with no complications. The patient recovered briefly in the postanesthesia care unit and was then transferred to the short-stay surgical unit in stable condition. On postop day #1, the patient's H and H was 10.7 and 31 with an INR of 1.21 after 6 mg of Coumadin the night before. The dressing was clean, dry, and intact. The right lower extremity was neurovascularly intact. She could demonstrate dorsiflexion and plantarflexion with good strength. The patient was able to get out of bed with physical therapy. The pain was controlled with oral Percocet 5/325. On postop day #2, the urinary catheter was discontinued and the patient was able to void without difficulty. The incision was found to be benign with minimal drainage, no erythema or warmth. The patient's H and H was 9.5 and 28 with an INR of 3.08 after 6 mg of Coumadin the night before. Pain was again controlled with Percocet 5/325. The patient's pain was well controlled and found to be stable for discharge. Throughout the hospital course vital signs remained stable and the patient was afebrile. DISCHARGE CONDITION: Good. DISCHARGE MEDICATIONS: 1. Percocet 5/325. 2. Warfarin 2 mg. 3. Colace 100 mg. Home Medications: 1. Iron. 2. Lisinopril 10 mg. 3. Paroxetine 20 mg. 4. Humulin. 5. Vitamin B12. 6. Vitamin D3. 7. Multivitamin. DISCHARGE INSTRUCTIONS: 1. Weightbearing as tolerated. 2. Wound care: Okay to shower on postop day #3. No bathing, swimming, or submerging the wound. Use gentle soap and pat dry. Cover with gauze, nora wrap , or tape. 3. Call orthopedic office for increase drainage or redness, increased pain or fever. 4. Go to the ER with shortness of breath or chest pain. 5. Diet. Regular diet. Increase fluids and fibers to prevent constipation. 6. Continue to use stool softeners. Call the office if no bowel motion within 48 hours. 7. Continue physical therapy and occupational therapy exercises as shown. 8. Visiting home nurses to do wound checks and draw blood work for INR on Mondays and . 9. Coumadin dosing. Please note that you have been given 2 mg tablets. You will be provided with dose instructions on Mondays and . If you do not receive dosing instructions on dosing, please call the office straightaway. Please katina dosing instructions on your calender as they are provided to you. Dosing: Hold tonight, recheck tomorrow. 7. Pain control. Percocet 5/325 mg 1 to 2 tabs every 4 to 6 hours as needed for pain. Please be aware that Percocet contains Tylenol which has a maximum daily dose of 4000 mg from all sources. 8. Antibiotics required prior to any dental work. 9. Follow up with Dr. Hein within 10 to 14 days. Call of an appointment. 10. Please call our office with any questions or concerns at [phone]. JAZIEL FLEMING [id number]/[facility] #: [id number] MTDD
== END 2018-04-13 12:15 | disposition home health service (06) | DRG 302 ==
LOC: AA 05:57 → SSU 10:08
PROVIDERS: ADMIT Orthopaedic Surgery Adult Reconstructive Orthopaedic Surgery; ATTEND Orthopaedic Surgery Adult Reconstructive Orthopaedic Surgery
PROC: 0SRC069 Replacement of Right Knee Joint with Oxidized Zirconium on Polyethylene Synthetic Substitute, Cemented, Open Approach (ICD-10-PCS; principal; 2018-04-11 07:30)
DX: M17.11 Unilateral primary osteoarthritis, right knee (principal); Q21.1 Atrial septal defect; E11.9 Type 2 diabetes mellitus without complications; I10 Essential (primary) hypertension; Z98.84 Bariatric surgery status; Z96.652 Presence of left artificial knee joint; E53.8 Deficiency of other specified B group vitamins; E55.9 Vitamin D deficiency, unspecified; F32.9 Major depressive disorder, single episode, unspecified; M25.761 Osteophyte, right knee; G43.909 Migraine, unspecified, not intractable, without status migrainosus; Z79.4 Long term (current) use of insulin; Z79.899 Other long term (current) drug therapy; Z88.5 Allergy status to narcotic agent; Z88.8 Allergy status to other drugs, medicaments and biological substances; Z82.49 Family history of ischemic heart disease and other diseases of the circulatory system; Z82.3 Family history of stroke; Z80.0 Family history of malignant neoplasm of digestive organs; Z86.73 Personal history of transient ischemic attack (TIA), and cerebral infarction without residual deficits; Z82.61 Family history of arthritis; Z83.3 Family history of diabetes mellitus
CPT/HCPCS: 36415; 80048; 85014; 85018; 85025; 85049; 85610; 90686; 90732; A9270-GY; J0360; J0690; J1200; J1650; J2250; J2270; J2405; J2704; J2795; J3010

== ENCOUNTER 2019-01-21 11:06 | Emergency (ER) | payer MEDICARE, OTHER ==
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
[2019-01-21 11:36] LABS: ABS Basophils 0.1 10^3/ul (0-0.2); ABS Eosinophils 0.2 10^3/ul (0-0.6); ABS Lymphocytes 1.5 10^3/ul (1.0-4.8); ABS Monocytes 0.5 10^3/ul (0-0.8); ABS Neutrophils 4.8 10^3/ul (1.5-7.7); Eosinophil % 2.9 %; Hematocrit 35 % (35-47); Hemoglobin 12.3 g/dL (12.0-16.0); Lymphocyte % 21.3 %; Mean Corpuscular HGB Conc 35 g/dL (31-36); Mean Corpuscular Hemoglobin 34 pg (27-31); Mean Corpuscular Volume 96 fL (80-97); Mean Platelet Volume 8.5 fL (7.4-10.4); Platelet Count 264 10^3/uL (150-450); Red Blood Count 3.65 10^6 /uL (3.70-4.87); Red Cell Distribution Width 13 % (10-15)
[2019-01-21 11:57] LABS: ALT 11 U/L (7-52); AST 18 U/L (13-39); Albumin 3.7 g/dL (3.2-5.2); Albumin/Globulin Ratio 1.1 (1-3); Alkaline Phosphatase 128 U/L (34-104); Anion Gap 5 mmol/L (2-11); BUN/Creatinine Ratio 29.3 (8-20); Blood Urea Nitrogen 27 mg/dL (6-24); CO2 Carbon Dioxide 29 mmol/L (22-32); Calcium 8.9 mg/dL (8.6-10.3); Chloride 106 mmol/L (101-111); EGFR African American 75.1 (>60); EGFR Non-African American 62.1 (>60); Globulin 3.3 g/dL (2-4); Glucose 182 mg/dL (70-100); Potassium 3.9 mmol/L (3.5-5.0); Sodium 140 mmol/L (135-145)
[2019-01-21] MEDS ORDERED: Lorazepam PYXIS KEY PRN (12:11)
[2019-01-21] MEDS ORDERED: LORazepam INJ* 2 MG/ML 1 ML VIAL IV PUSH ONE (12:11)
[2019-01-21] MEDS ORDERED: Iodixanol* (CONTRAST) 320 MG/ML 100 ML SDV IV ONE (12:24)
[2019-01-21 12:38] LABS: Alcohol < 10 mg/dL (<10)
[2019-01-21] MEDS ORDERED: Ketorolac INJ* 30 MG/ML 1 ML VIAL IV PUSH ONE (13:01)
[2019-01-21 13:25] VITALS: BP 157/107
== END 2019-01-21 13:21 | disposition home or self-care (01) ==
LOC: ED 11:06
DX: M54.2 Cervicalgia (principal); M79.631 Pain in right forearm; E11.9 Type 2 diabetes mellitus without complications; E78.00 Pure hypercholesterolemia, unspecified; I10 Essential (primary) hypertension; S30.1XXA Contusion of abdominal wall, initial encounter; V47.5XXA Car driver injured in collision with fixed or stationary object in traffic accident, initial encounter; Z79.4 Long term (current) use of insulin
CPT/HCPCS: 36415; 70450; 71260; 72125; 74177; 80053; 80320; 83605; 84484; 85025; 93005; 96374; 96375; 99283; G0480; J1885; J2060; Q9967

== ENCOUNTER 2019-08-25 09:59 | Day surgery (SDC) | payer MEDICARE ==
--- NOTE | 2019-08-20 09:47 | HP ---
PREOPERATIVE HISTORY AND PHYSICAL: DATE OF ADMISSION/SURGERY: 08/25/19 DATE OF OFFICE VISIT/ENCOUNTER: 08/19/19 ATTENDING SURGEON: Lillian Almazan MD * (DICTATED BY JAZIEL LUNA) PRIMARY CARE PHYSICIAN: Dr. Lynn PROCEDURE: Left thumb carpometacarpal joint arthroplasty. HISTORY OF PRESENT ILLNESS: This is a 64-year-old female, who has had pain at the base of her left thumb that has been ongoing for nearly a year. This is her nondominant hand. She reports no injury but has increased pain when she is using her hand particularly with gripping and she feels like she has a decrease in her strength; often times, she has throbbing pain. She denies any associated numbness or tingling. X-rays have shown significant osteoarthritic changes at the carpometacarpal joint. She has had 2 cortisone injections in the past, but they had become less effective over time. She has at this point consented to proceed with surgical intervention. She saw her primary care physician approximately 3 weeks ago and had a full physical. No new problems identified. No changes in medications. PAST MEDICAL HISTORY: 1. Diabetes mellitus 2. 2. Hypertension. 3. Depression/anxiety. PAST SURGICAL HISTORY: 1. Cholecystectomy. 2. Hysterectomy. 3. Bilateral total knee arthroplasty. 4. Ankle surgery. 5. C6-C7 spine surgery. 6. Left ankle surgery. 7. Bariatric surgery. CURRENT MEDICATIONS: 1. Humulin sliding scale daily. 2. Lisinopril 10 mg daily. 3. Multivitamin. 4. Trazodone/HCL 50 mg daily. 5. Venlafaxine HCL ER 150 mg daily. ALLERGIES: HYDROCODONE, OXYCODONE, POLYSPORIN, TETRACYCLINE. FAMILY MEDICAL HISTORY: Cancer, heart disease. SOCIAL HISTORY: The patient is retired. 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 She denies tobacco use and recreational drug use. She drinks alcohol on rare occasion. REVIEW OF SYSTEMS: Negative for general, cephalic, cardiovascular, respiratory , GI, , other musculoskeletal, integumentary, endocrine, neurologic, and hematologic symptoms. Infectious Disease: Negative for MRSA, hepatitis C, HIV. PHYSICAL EXAMINATION GENERAL: A well-developed, well-nourished 64-year-old female, in no acute distress. VITAL SIGNS: Height 5 feet 4 inches, weight 196 pounds. Pulse rate 86, blood pressure 132/76. HEENT: Normocephalic, atraumatic. Pupils are equal, round, and reactive to light and accommodation. Extraocular movements are intact. Throat is clear. NECK: Supple. No palpable lymph nodes. PULMONARY: Lungs are clear to auscultation bilaterally. No wheezes, rales or rhonchi. CARDIOVASCULAR: Regular rate and rhythm. S1, S2. No murmurs, rubs or gallops. No edema. ABDOMEN: Positive bowel sounds. Soft, nontender. NEUROLOGICAL: Alert and oriented x3. Cranial nerves II through XII are intact. Sensation is intact to light touch. MUSCULOSKELETAL: On exam of her left hand, she has a prominent base of the first metacarpal and tenderness to palpation at the CMC joint of the left thumb. She has fairly good motion but increased pain if fully apposes. She has a positive grind test. Good pinch global account executive strength. Neurovascular function is intact. DIAGNOSTIC STUDIES/LAB DATA: X-rays AP, lateral, and oblique of the left thumb show significant osteoarthritic changes at the thumb carpometacarpal joint with loss of joint space and large osteophytes. IMPRESSION: Left thumb osteoarthritis, carpometacarpal joint. PLAN: The patient is scheduled to undergo a left thumb carpometacarpal joint arthroplasty with Dr. Almazan on 08/25/19. She will return to the office 10 days postop for followup and suture removal. A prescription for tramadol was e- scribed to the patient's pharmacy for postoperative pain management. JAZIEL LUNA [id number]/[facility] #: [id number] VAL
[~2019-08-25 09:59] MED LIST changes: -Buffered Lidocaine 0.9% SYRIN* 5 ML/SYR SYRINGE INTRADERM ONE; +Buffered Lidocaine 1% SYRIN* 1 ML/SYRINGE INTRADERM ONE; +DiMENhydriNATE IV* 50 MG/ML VIAL IV PUSH ONE; +Famotidine IV* 10 MG/ML 2 ML (20 mg) IV ONE; +Lactated Ringers 1000 ML Bag* 1,000 ML IV SCH; -Tranexamic Acid 1,000 MG in NS 0.9% 50 ML* (outpatient use) IV SCH
[2019-08-25] MEDS ORDERED: DiMENhydriNATE IV* 50 MG/ML VIAL ONE (10:25)
[2019-08-25] MEDS ORDERED: Famotidine IV* 10 MG/ML 2 ML (20 mg) ONE (10:25)
[2019-08-25] MEDS ORDERED: ceFAZolin 2 GM PREMIX in ORs 2 GM/50 ML BAG ONE (10:25)
[2019-08-25] MEDS ORDERED: fentaNYL* 50 MCG/ML 2 ML VIAL (100 MCG VIAL) ONE (10:38)
[2019-08-25] MEDS ORDERED: Lidocaine 2% PF * 5 ML VIAL ONE (10:38)
[2019-08-25] MEDS ORDERED: Midazolam* 1 MG/ML 2 ML VIAL (2 MG) ONE (10:38)
[2019-08-25] MEDS ORDERED: Propofol* 10 MG/ML 20 ML BTL ONE (10:38)
[2019-08-25] MEDS ORDERED: Bupivacaine 0.5% SDV PF* 30ML VIAL ONE (11:05)
[2019-08-25] MEDS ORDERED: Ketorolac INJ* 30 MG/ML 1 ML VIAL ONE (11:22)
[2019-08-25] MEDS ORDERED: Scopolamine 1.5 mg* PATCH TRANSDERM PRN (11:37)
[2019-08-25] MEDS ORDERED: Naloxone* 0.4 MG/ML 1 ML VIAL IV PRN (11:37)
[2019-08-25] MEDS ORDERED: fentaNYL* 50 MCG/ML 2 ML VIAL (100 MCG VIAL) IV PRN (11:37)
[2019-08-25] MEDS ORDERED: PROCHLORPERAZINE INJ 5 MG/ML 2 ML VIAL IV PRN (11:37)
[2019-08-25] MEDS ORDERED: Ondansetron INJ* 2 MG/ML VIAL ONE (11:49)
[2019-08-25 12:54] VITALS: BP 127/80
--- NOTE | 2019-08-25 23:13 | OP ---
DATE OF OPERATION: 08/25/19 [facility] DATE OF : 59 SURGEON: Lillian Avilez MD ([place]) MATHEMATICS ACADEMIC CHAIR: JAZIEL Lawrence ANESTHESIA: General. PRE-OP DIAGNOSIS: CMC arthritis of the left thumb. POST-OP DIAGNOSIS: CMC arthritis of the left thumb. PROCEDURE: Left thumb CMC arthroplasty. ESTIMATED BLOOD LOSS: Zero. TOURNIQUET TIME: About 45 minutes. INDICATIONS FOR PROCEDURE: Rupa is a 64-year-old female who has painful arthritis of the base of her left thumb. She has failed conservative treatment and presents for CMC arthroplasty. DESCRIPTION OF PROCEDURE: The patient was brought to the operating room and was given a general anesthetic and placed in the supine position on the operating table with the tourniquet around her left upper arm. The skin of her left upper extremity was prepped and draped in the usual sterile fashion. The upper extremity was exsanguinated and tourniquet elevated to 250 mmHg. An S- shaped incision was made centered over the thumb CMC joint. We dissected bluntly through the subcutaneous tissue down to the first dorsal compartment. The APL and EPB tendons were retracted and then the radial artery was carefully dissected off of the CMC joint capsule. A distally based U-shaped flap was created of the thumb CMC joint capsule and this was subperiosteally dissected off of the trapezium. The trapezium was then removed in it entirety and the wound was copiously irrigated with saline. The joint capsule was secured with a 4-0 nylon suture down to the FCR tendon in the floor of the wound. The remainder of the capsule was then closed with 4-0 nylon suture and the skin edges were reapproximated with 4-0 nylon suture. The wound was dressed with Xeroform, 4 x 4, Webril, and thumb spica splint with the thumb metacarpal abducted. The patient tolerated the procedure well and was brought to the recovery room in good condition. [id number]/[facility] #: [id number] [facility] HOSPITALAretha
[2019-08-28] MEDS ORDERED: Scopolamine PATCH Remove* 1 NOTE MISC PATCH OFF ONE (11:38)
== END 2019-08-25 13:10 | disposition home or self-care (01) ==
LOC: OREAST 09:59
PROVIDERS: ATTEND Orthopaedic Surgery
DX: M18.12 Unilateral primary osteoarthritis of first carpometacarpal joint, left hand (principal); E11.9 Type 2 diabetes mellitus without complications; Z79.4 Long term (current) use of insulin; I10 Essential (primary) hypertension; F41.8 Other specified anxiety disorders
CPT/HCPCS: 88304; 88311; J0690; J1240; J1885; J2250; J2405; J2704; J3010; J3490